=== PATIENT | male | born 1945 | race Caucasian/White ===

== ENCOUNTER 2016-09-01 15:16 | Inpatient (IN) | payer OTHER ==
[2016-09-01 17:15] LABS: BASOPHIL 0.8 % (0-2.0); EOSINOPHIL 1.1 % (0-4.5); MCH 30.6 pg (25.7-33.7); MCHC 34.8 g/dl (32.0-35.9); MEAN CELL VOLUME 87.9 fl (80-96); MEAN PLT VOLUME 8.7 fl (7.5-11.1); NEUTROPHILS 71.2 % (42.8-82.8); PLATELET COUNT 212 K/MM3 (134-434); RDW 15.1 % (11.9-15.9); WHITE BLOOD COUNT 9.4 K/mm3 (4.0-10.0)
--- NOTE | 2016-09-01 17:21 | PDOC ---
History of Present Illness - General History Source: Patient, Old Records Exam Limitations: No Limitations <Ирина Talbert - Last Filed: 09/01/16 18:21> - General History Source: Patient Exam Limitations: No Limitations - History of Present Illness Initial Comments: 09/01/16 17:21 The patient is a 71 year old male, with a significant past medical history of hemorrhoids (10 years ago treated with surgery) ,[place] (baby aspirin), CAD s/p stents x2, HTN and bipolar disorder, who presents to the emergency department with diarrhea and rectal bleeding. The patient reports today having 25-30 episodes of diarrhea with bright red blood since this morning. He notes having some mild abdominal pain. He denies any recent fevers, chills, headache or dizziness. He denies any recent nausea, vomit, or constipation. He denies any recent dysuria, frequency, urgency or hematuria. Allergies: NKA Past surgical history: See HPI. Appendectomy. Social History: Current smoker (1pack a day). EtOH occasional use. Denies drug use. PCP: <Renato aFrooq - Last Filed: 09/01/16 18:25> - General Chief Complaint: Bleeding from Anus Stated Complaint: DIARRHEA/ RECTAL BLEEDING Time Seen by Provider: 09/01/16 15:18 Past History - Past Medical History Cardiac Disorders: Yes (cad) HTN: Yes Hypercholesterolemia: Yes Psychiatric Problems: Yes (bipolar) Suicide Attempt (Hx): No - Surgical History Appendectomy: Yes Cardiac Surgery: Yes (x2 stents) - Psycho/Social/Smoking Cessation Hx Anxiety: No Suicidal Ideation: No Smoking History: Current every day smoker Have you smoked in the past 12 months: Yes Number of Cigarettes Smoked Daily: 20 Information on smoking cessation initiated: Yes 'Breaking Loose' booklet given: 09/01/16 Hx Alcohol Use: No Drug/Substance Use Hx: No Substance Use Type: None <Ирина Talbert - Last Filed: 09/01/16 18:21> <Renato Farooq - Last Filed: 09/01/16 18:25> - Past Medical History Allergies/Adverse Reactions: Allergies Allergy/AdvReac Type Severity Reaction Status Date / Time No Known Allergies Allergy Verified 09/01/16 15:17 Home Medications: Ambulatory Orders Quinapril HCl [Accupril -] 40 mg PO DAILY 08/17/13 Risperidone [Risperdal] 50 mg IM UTDICT 08/17/13 Verapamil HCl [Verapamil ER] 240 mg PO DAILY #7 [email or web address].pel 08/17/13 Amlodipine Besylate [Norvasc -] 5 mg PO DAILY 10/30/14 Metoprolol Succinate [Toprol Xl -] 25 mg PO DAILY 10/30/14 Review of Systems - Review of Systems Able to Perform ROS?: Yes Comments:: 09/01/16 17:22 CONSTITUTIONAL: Absent: fever, no chills, no fatigue EYES: Absent: visual changes ENT: Absent: ear pain, no sore throat CARDIOVASCULAR: Absent: chest pain, no palpitations RESPIRATORY: Absent: cough, no SOB GI: +diarrhea and rectal bleeding, abdominal pain,. Absent: no nausea, no vomiting , no constipation GENITOURINARY: Absent: dysuria, no frequency, no hematuria MUSKULOSKELETAL: Absent: back pain, no arthralgia, no myalgia SKIN: Absent: rash NEURO: Absent: headache <Renato Farooq - Last Filed: 09/01/16 18:25> *Physical Exam - Vital Signs Last Vital Signs Temp Pulse Resp BP Pulse Ox 98.0 F 72 18 147/75 98 09/01/16 15:19 09/01/16 15:19 09/01/16 15:19 09/01/16 15:19 09/01/16 15:30 <Ирина Talbert - Last Filed: 09/01/16 18:21> - Vital Signs Last Vital Signs Temp Pulse Resp BP Pulse Ox 98.0 F 72 18 147/75 98 09/01/16 15:19 09/01/16 15:19 09/01/16 15:19 09/01/16 15:19 09/01/16 15:30 - Physical Exam Comments: 09/01/16 17:22 GENERAL: Well developed, well nourished. Awake and alert. No acute distress. HEENT: Normocephalic, atraumatic. PERRLA, EOMI. No conjunctival pallor. Sclera are non- icteric. Moist mucous membranes. Oropharynx is clear. NECK: Supple. Full ROM. No JVD. Carotid pulses 2+ and symmetric, without bruits. No thyromegaly. No lymphadenopathy. CARDIOVASCULAR: Regular rate and rhythm. No murmurs, rubs, or gallops. Distal pulses are 2+ and symmetric. PULMONARY: Wheezes in all lung rhodes. ABDOMINAL: Soft. Non-tender. Non-distended. No rebound or guarding. No organomegaly. Normoactive bowel sounds. RECTAL: External hemorrhoids and gross red blood. MUSCULOSKELETAL Normal range of motion at all joints. No bony deformities or tenderness. No CVA tenderness. EXTREMITIES: No cyanosis. No clubbing. No edema. No calf tenderness. SKIN: Warm and dry. Normal capillary refill. No rashes. No jaundice. NEUROLOGICAL: Alert, awake, appropriate. Cranial nerves 2-12 intact. No deficits to light touch and temperature in face, upper extremities and lower extremities. No motor deficits in the in face, upper extremities and lower extremities. Normoreflexic in the upper and lower extremities. Normal speech. Toes are down- going bilaterally. Gait is normal without ataxia. PSYCHIATRIC: Cooperative. Good eye contact. Appropriate mood and affect. <Renato Farooq - Last Filed: 09/01/16 18:25> ED Treatment Course - LABORATORY CBC & Chemistry Diagram: 09/01/16 15:50 09/01/16 15:50 <Ирина Talbert - Last Filed: 09/01/16 18:21> - LABORATORY CBC & Chemistry Diagram: 09/01/16 15:50 09/01/16 15:50 <Renato Farooq - Last Filed: 09/01/16 18:25> Medical Decision Making - Medical Decision Making 09/01/16 17:19 71-year-old male with history of hypertension, hemorrhoids, COPD, coronary artery disease status post stent on aspirin therapy who presents to the emergency department with bright red blood per rectum 20-30 episodes this morning. There is copious BRBPR on my physical exam. Differential diagnosis includes but is not limited to: Rectal bleed secondary to hemorrhoids, diverticulitis, AV malformation, rapid upper GI bleed, anemia, dehydration, toxic/metabolic derangement. Plan: 1. Labs 2. Type and cross for 4 units 3. IV fluids 4. EKG 5. GI consult 6. Admit 7. Observe and reevaluate 09/01/16 18:21 Addendum: The labs were reviewed and are noted in the EMR. His hemoglobin is 14 therefore will not actively transfuse. Will admit to a monitored setting and have GI see the patient. I've discussed the case with the patient's primary care physician who agrees with the plan. <Ирина Talbert - Last Filed: 09/01/16 18:21> - Medical Decision Making 09/01/16 17:57 Call made to , awaiting call back. 09/01/16 18:18 Call back from , case discussed. 09/01/16 18:23 Call made to , awaiting call back 09/01/16 18:25 Call back from case discussed. <Renato Farooq - Last Filed: 09/01/16 18:25> *DC/Admit/Observation/Transfer - Discharge Dispostion Admit: Yes - Attestations Physician Attestion: 09/01/16 17:19 I, Dr. Ирина Talbert, attest that the scribes documentation that appears above has been prepared under my direction and personally reviewed by me in its entirety. I confirmed that the note above accurately reflects all work, treatment, procedures, and medical decision-making performed by me. <Ирина Talbert - Last Filed: 09/01/16 18:21> - Attestations Scribe Attestion: 09/01/16 17:22 Documentation prepared by Renato Farooq, acting as medical affairs director for Ирина Talbert MD. <Renato Farooq - Last Filed: 09/01/16 18:25> Diagnosis at time of Disposition: Rectal bleeding - Discharge Dispostion Condition at time of disposition: Good - Referrals Referrals: Antwon Scales MD [Primary Care Provider] -
[2016-09-01] MEDS ORDERED: SODIUM CHLORIDE 1,000 ML IV STA (17:22)
[2016-09-01] MEDS ORDERED: PANTOPRAZOLE SODIUM 40 MG VIAL ONE (17:27)
[2016-09-01 17:30] LABS: INR 0.96 (0.82-1.09); PROTHROMBIN TIME (PATIENT) 10.6 SEC (9.98-11.88)
[2016-09-01 17:34] LABS: ALBUMIN 3.9 g/dl (3.4-5.0); ANION GAP 7 (8-16); BILIRUBIN,TOTAL 0.4 mg/dL (0.2-1.0); CALCIUM 8.6 mg/dL (8.5-10.1); CO2 28 mmol/L (21-32); CREATININE 1.1 mg/dL (0.7-1.3); GLUCOSE,RANDOM 82 mg/dL (74-106); SGOT/AST 21 U/L (15-37); SGPT/ALT 25 U/L (12-78)
[2016-09-01 17:35] LABS: ALK PHOS 59 U/L (45-117); TOT PROT 6.7 g/dl (6.4-8.2)
[2016-09-01] MEDS: PANTOPRAZOLE SODIUM 80 MG in SODIUM CHLORIDE 100 ML IVPB SCH (17:36)
[2016-09-01 19:57] LABS: TROPONIN I 0.07 ng/ml (0.00-0.05)
[2016-09-01 20:39] LABS: BASOPHIL 0.6 % (0-2.0); MCH 29.8 pg (25.7-33.7); MCHC 33.9 g/dl (32.0-35.9); MEAN CELL VOLUME 87.9 fl (80-96); MEAN PLT VOLUME 8.4 fl (7.5-11.1); PLATELET COUNT 188 K/MM3 (134-434); RDW 15.6 % (11.9-15.9); WHITE BLOOD COUNT 8.7 K/mm3 (4.0-10.0)
[2016-09-01] MEDS: D5-1/2NS+20 MEQ KCL - 1,000 ML IV SCH (21:56)
[2016-09-01] MEDS: BUDESONIDE/FORMETEROL FUMARATE 80/4.5 mcg INHALER IH SCH (22:51)
[2016-09-01] MEDS ORDERED: PT OWN MED DRAWER 7, Y5N ONE (23:16)
[2016-09-01 23:48] VITALS: BMI 20.7
[2016-09-02] MEDS: PANTOPRAZOLE SODIUM 80 MG in SODIUM CHLORIDE 100 ML IVPB SCH ×3 (02:47→23:50)
[2016-09-02 08:02] LABS: BASOPHIL 0.5 % (0-2.0); EOSINOPHIL 1.5 % (0-4.5); MEAN CELL VOLUME 88.2 fl (80-96); MEAN PLT VOLUME 8.7 fl (7.5-11.1); NEUTROPHILS 71.6 % (42.8-82.8); PLATELET COUNT 179 K/MM3 (134-434); RDW 15.5 % (11.9-15.9); WHITE BLOOD COUNT 6.1 K/mm3 (4.0-10.0)
--- NOTE | 2016-09-02 08:08 | HP ---
Admitting History and Physical - Admission History of Present Illness: 71 year old male, with a significant past medical history of hemorrhoids (10 years ago treated with surgery) ,[place] (baby aspirin), CAD s/p stents x2, HTN and bipolar disorder, who presents to the emergency department with diarrhea and rectal bleeding. The patient reports today having 25-30 episodes of diarrhea with bright red blood since this morning. He notes having some mild abdominal pain. He denies any recent fevers, chills, headache or dizziness. He denies any recent nausea, vomit, or constipation. He denies any recent dysuria, frequency, urgency or hematuria. Allergies: NKA Past surgical history: See HPI. Appendectomy. Social History: Current smoker (1pack a day). EtOH occasional use. Denies drug use. 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 Cardiovascular: Yes: CAD, HTN, Hyperlipdemia Pulmonary: Yes: COPD Gastrointestinal: Yes: GERD, Hemorrhoids Psych: Yes: Bipolar - Smoking History Smoking history: Current every day smoker Have you smoked in the past 12 months: Yes Aproximately how many cigarettes per day: 20 - Alcohol/Substance Use Hx Alcohol Use: No Home Medications - Allergies Allergies/Adverse Reactions: Allergies Allergy/AdvReac Type Severity Reaction Status Date / Time No Known Allergies Allergy Verified 09/01/16 15:17 - Home Medications Home Medications: Ambulatory Orders Quinapril HCl [Accupril -] 40 mg PO DAILY 08/17/13 Risperidone [Risperdal] 50 mg IM UTDICT 08/17/13 Amlodipine Besylate [Norvasc -] 5 mg PO DAILY 10/30/14 Aspirin [ASA -] 81 mg PO DAILY 09/01/16 Cholecalciferol (Vitamin D3) [Vitamin D -] 1,000 unit PO DAILY 09/01/16 Propylene Glycol/Peg 400/Pf [Systane 0.3-0.4% Eye Drops] 1 each OP DAILY Salmeterol/Fluticasone [Advair 250Mcg/50Mcg -] 1 inh PO DAILY 09/01/16 Simvastatin [Zocor -] 20 mg PO HS 09/01/16 Travoprost [Travatan Z] 1 drop OP DAILY 09/01/16 Acetaminophen [Tylenol .Extra-Strength -] 1,000 mg PO Q6H PRN 09/02/16 Amlodipine Besylate [Norvasc -] 10 mg PO DAILY #30 tablet 09/04/16 Nicotine Patch [Nicoderm Patch -] 21 mg TD DAILY patch 09/04/16 Pantoprazole Sodium [Protonix -] 40 mg PO DAILY #30 tablet.ec 09/04/16 Review of Systems - Review of Systems HENT: reports: No Symptoms Cardiovascular: denies: Chest Pain, Edema Respiratory: denies: SOB Gastrointestinal: reports: Rectal Bleeding. denies: Abdominal Pain Genitourinary: reports: No Symptoms Physical Examination Vital Signs: Vital Signs Temperature 97.0 F L 09/02/16 05:00 Pulse Rate 60 09/02/16 05:00 Respiratory Rate 16 09/02/16 05:00 Blood Pressure 147/80 09/02/16 05:00 O2 Sat by Pulse Oximetry (%) 92 L 09/01/16 21:15 Cardiovascular: Yes: Regular Rate and Rhythm Respiratory: Yes: Regular, CTA Bilaterally Gastrointestinal: Yes: Normal Bowel Sounds, Soft. No: Tenderness Edema: No Problem List - Problems (1) Rectal bleeding Assessment/Plan: FOLLOW LABS GI CONSULT PPI Code(s): K62.5 - HEMORRHAGE OF ANUS AND RECTUM (2) Hypertension Assessment/Plan: MONITOR ON CURRENT MEDS Code(s): I10 - ESSENTIAL (PRIMARY) HYPERTENSION (3) CAD (coronary artery disease) Assessment/Plan: NO CP EKG CARDIO Code(s): I25.10 - ATHSCL HEART DISEASE OF [place] CORONARY ARTERY W/O ANG PCTRS (4) Tobacco abuse Assessment/Plan: NICODERM Code(s): Z72.0 - TOBACCO USE (5) Elevated troponin Assessment/Plan: FOLLOW CARDIO Code(s): R79.89 - OTHER SPECIFIED ABNORMAL FINDINGS OF BLOOD CHEMISTRY
[2016-09-02 08:27] LABS: ALBUMIN 3.3 g/dl (3.4-5.0); ALK PHOS 53 U/L (45-117); ANION GAP 7 (8-16); BILIRUBIN,TOTAL 0.6 mg/dL (0.2-1.0); CALCIUM 7.7 mg/dL (8.5-10.1); CHOLESTEROL 162 mg/dL (50-200); CO2 27 mmol/L (21-32); GLUCOSE,RANDOM 104 mg/dL (74-106); LDL CHOLESTEROL (ONLY SJRH) 101 mg/dL (5-100); SGOT/AST 16 U/L (15-37); SGPT/ALT 20 U/L (12-78); TOT PROT 5.6 g/dl (6.4-8.2); TROPONIN I 0.06 ng/ml (0.00-0.05)
[2016-09-02] MEDS ORDERED: INFLUENZA VACCINE 45 MCG/0.5 ML (MDV 16-17) IM ONE (09:00)
[2016-09-02] MEDS ORDERED: QUINAPRIL HCL 20 MG TABLET (FP) ONE (09:54)
[2016-09-02] MEDS ORDERED: PT OWN MED DRAWER 7, Y5N ONE ×4 (09:55→22:29)
[2016-09-02] MEDS ORDERED: amLODIPine BESYLATE 5 MG TABLET (FP) PO SCH (10:00)
[2016-09-02] MEDS: NICOTINE 21 MG/24 HOURS TOPICAL PATCH TD SCH (10:21)
[2016-09-02] MEDS: QUINAPRIL HCL 40 MG TABLET (FP) PO SCH (10:22)
[2016-09-02] MEDS: BUDESONIDE/FORMETEROL FUMARATE 80/4.5 mcg INHALER IH SCH ×2 (10:24→21:21)
[2016-09-02] MEDS: D5-1/2NS+20 MEQ KCL - 1,000 ML IV SCH ×3 (13:05→23:50)
--- NOTE | 2016-09-02 14:22 | CON.CARD ---
Consult Consult Specialty:: Cardiology Referred by:: Dr. Scales Reason for Consultation:: Hypertension, minimal troponin elevation - History of Present Illness Chief Complaint: Rectal bleeding History of Present Illness: 71 yo male with COPD, HTN, hyperlipidemia, CAD s/p PCI prox and mid LAD requiring rotational atherectomy (NSTEMI, 10/2014 at [facility]), ascending aortic aneurysm (4.[address] scan 10/2014), who was admitted for diarrhea and rectal bleeding. Patient reported hematochezia which began yesterday morning. Cardiology was consulted for management of HTN and minimal troponin elevation ( 0.07 -> 0.06). Patient denies any chest pain or dyspnea. Patient was last seen by Dr. Yovany Sesay (store consultant) on 06/10/16 and was clinically stable from cardiac standpoint at that time. No ischemic ECG changes per admission ECG. Currently asymptomatic. 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 Cardio/Vascular: Yes: CAD, HTN, Hyperlipdemia, [place] (NSTEMI 10/2013, underwent PCI of prox and mid LAD with JAMAL x2 at [facility]) Pulmonary: Yes: COPD Gastrointestinal: Yes: GERD, Hemorrhoids Psych: Yes: Bipolar - Past Surgical History Past Surgical History: Yes: Appendectomy - Alcohol/Substance Use Hx Alcohol Use: No - Smoking History Smoking history: Current every day smoker Have you smoked in the past 12 months: Yes Aproximately how many cigarettes per day: 20 Home Medications - Allergies Allergies/Adverse Reactions: Allergies Allergy/AdvReac Type Severity Reaction Status Date / Time No Known Allergies Allergy Verified 09/01/16 15:17 - Home Medications Home Medications: Ambulatory Orders Quinapril HCl [Accupril -] 40 mg PO DAILY 08/17/13 Risperidone [Risperdal] 50 mg IM UTDICT 08/17/13 Amlodipine Besylate [Norvasc -] 5 mg PO DAILY 10/30/14 Aspirin [ASA -] 81 mg PO DAILY 09/01/16 Cholecalciferol (Vitamin D3) [Vitamin D3 -] 1,000 unit PO DAILY 09/01/16 Propylene Glycol/Peg 400/Pf [Systane 0.3-0.4% Eye Drops] 1 each OP DAILY Salmeterol/Fluticasone [Advair 250Mcg/50Mcg] 1 inh PO DAILY 09/01/16 Simvastatin [Zocor -] 20 mg PO HS 09/01/16 Travoprost [Travatan Z] 1 drop OP DAILY 09/01/16 Acetaminophen [Tylenol -] 1,000 mg PO Q6H PRN 09/02/16 Vital Signs: Vital Signs Temperature 98.0 F 09/02/16 14:01 Pulse Rate 61 09/02/16 14:01 Respiratory Rate 18 09/02/16 14:01 Blood Pressure 136/82 09/02/16 14:01 O2 Sat by Pulse Oximetry (%) 94 L 09/02/16 09:00 Constitutional: Yes: No Distress Eyes: Yes: Conjunctiva Clear, EOM Intact HENT: Yes: Atraumatic, Normocephalic Respiratory: Yes: CTA Bilaterally Gastrointestinal: Yes: Normal Bowel Sounds. No: Soft, Tenderness Cardiovascular: Yes: Regular Rate and Rhythm JVD: No Carotid Bruit: No PMI: Non-Displaced Heart Sounds: Yes: S1, S2 Murmur: No: Systolic Murmur Edema: No Neurological: Yes: Alert, Oriented, Cran Nerves II-XII Intact ...Motor Strength: WNL Psychiatric: Yes: WNL - Other Data Labs, Other Data: CBC, BMP 09/02/16 06:00 09/02/16 06:00 INR, PTT INR 0.96 (0.82-1.09) 09/01/16 15:50 Troponin, BNP 09/02/16 06:00 Troponin I 0.06 H Troponin, BNP 09/02/16 06:00 Troponin I 0.06 H 09/01/16 ECG: Sinus rhythm, rate 76 bpm, PACs, delayed R wave progression Echo: Report Reviewed (10/31/14 Echo: Normal LV size and systolic function, grade I diastolic dysfunction, borderline biatrial dilatation, mild to mod MV thickening, trace to mild MR, mod aortic root dilatation.) Prior Cardiac Procedures: Cardiac Catheterization (10/2014 Cardiac cath (at [facility]): Subtotal occlusion of mLAD, underwent PCI w/ JAMAL x 2 to proximal and mid LAD, residual 70-80% dLPL diseae) Imaging - Results Chest X-ray: Report Reviewed (09/01/16 CXR: Borderline cardiomegaly) Assessment/Plan 71 yo male with COPD, HTN, hyperlipidemia, CAD s/p PCI prox and mid LAD requiring rotational atherectomy (NSTEMI, 10/2014 at [facility]), ascending aortic aneurysm (4.[address] scan 10/2014), who was admitted for diarrhea and rectal bleeding which began yesterday AM. Cardiology was consulted for management of HTN and minimal troponin elevation ( 0.07 -> 0.06). P No ECG changes or chest pain to suggest ischemia or infarct. Minimal trop elevation is not clinically significant given absence of symptoms and ECG changes. RECS: Will increase amlodipine to 10 mg po daily for further BP control. Continue quinapril 40 mg po daily. Will change patient's statin to pravastatin 40 mg po daily as per 06/10/[address] Sesay Patient's aspirin is currently on hold given reported rectal bleeding. May resume when OK per GI consult service. Patient does not have any cardiac contraindications to GI endoscopy if clinically indicated, and may proceed without further cardiac work-up or intervention. Will see prn. Please call with specific questions. Further recs as per primary care team and GI consult
--- NOTE | 2016-09-02 16:09 | EKG ---
Test Reason : Blood Pressure : / mmHG Vent. Rate : 076 BPM Atrial Rate : 076 BPM P-R Int : 152 ms QRS Dur : 082 ms QT Int : 372 ms P-R-T Axes : 054 010 045 degrees QTc Int : 418 ms SINUS RHYTHM WITH PREMATURE ATRIAL COMPLEXES CANNOT RULE OUT ANTERIOR INFARCT , AGE UNDETERMINED ABNORMAL ECG WHEN COMPARED WITH ECG OF 31-OCT-2014 09:08, ST NO LONGER DEPRESSED IN LATERAL LEADS NONSPECIFIC T WAVE ABNORMALITY NO LONGER EVIDENT IN INFERIOR LEADS T WAVE INVERSION NO LONGER EVIDENT IN LATERAL LEADS Confirmed by LEO STERLING MD ([id number]) on 09/02/2016 4:09:07 PM Referred By: Confirmed By:LEO STERLING MD
--- NOTE | 2016-09-02 16:55 | CON.GI ---
Consult Consult Specialty:: gastroenterology Referred by:: Dr Scales - History of Present Illness History of Present Illness: 71 y/o male was asked too be seen because of diarrhea associated with rectal bleeding and mild anemia. He had several episodes of rectal bleeding and diarrhea. He denies chest pain, LOC,dizziness, and abdominal pain. 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 Cardio/Vascular: Yes: CAD, HTN, Hyperlipdemia, [place] (NSTEMI 10/2013, underwent PCI of prox and mid LAD with JAMAL x2 at [facility]) Pulmonary: Yes: COPD Gastrointestinal: Yes: GERD, Hemorrhoids Psych: Yes: Bipolar - Past Surgical History Past Surgical History: Yes: Appendectomy - Alcohol/Substance Use Hx Alcohol Use: No - Smoking History Smoking history: Current every day smoker Have you smoked in the past 12 months: Yes Aproximately how many cigarettes per day: 20 Home Medications - Allergies Allergies/Adverse Reactions: Allergies Allergy/AdvReac Type Severity Reaction Status Date / Time No Known Allergies Allergy Verified 09/01/16 15:17 - Home Medications Home Medications: Ambulatory Orders Quinapril HCl [Accupril -] 40 mg PO DAILY 08/17/13 Risperidone [Risperdal] 50 mg IM UTDICT 08/17/13 Amlodipine Besylate [Norvasc -] 5 mg PO DAILY 10/30/14 Aspirin [ASA -] 81 mg PO DAILY 09/01/16 Cholecalciferol (Vitamin D3) [Vitamin D3 -] 1,000 unit PO DAILY 09/01/16 Propylene Glycol/Peg 400/Pf [Systane 0.3-0.4% Eye Drops] 1 each OP DAILY Salmeterol/Fluticasone [Advair 250Mcg/50Mcg] 1 inh PO DAILY 09/01/16 Simvastatin [Zocor -] 20 mg PO HS 09/01/16 Travoprost [Travatan Z] 1 drop OP DAILY 09/01/16 Acetaminophen [Tylenol -] 1,000 mg PO Q6H PRN 09/02/16 Review of Systems - Review of Systems Constitutional: denies: Fever Eyes: denies: Blind Spots HENT: denies: Difficult Swallowing, Throat Pain Cardiovascular: denies: Chest Pain Respiratory: denies: SOB Gastrointestinal: reports: Diarrhea, Rectal Bleeding. denies: Abdominal Pain, Constipation, Melena, Nausea Physical Exam-GI Vital Signs: Vital Signs Temperature 98.0 F 09/02/16 14:01 Pulse Rate 61 09/02/16 14:01 Respiratory Rate 18 09/02/16 14:01 Blood Pressure 136/82 09/02/16 14:01 O2 Sat by Pulse Oximetry (%) 94 L 09/02/16 09:00 Labs: CBC, BMP 09/02/16 06:00 09/02/16 06:00 INR, PTT INR 0.96 (0.82-1.09) 09/01/16 15:50 Problem List - Problems (1) Rectal bleeding Assessment/Plan: associated with diarrhea, no abdominal pain r/o diverticular bleeding ves ischemic colitis R> for colonoscopy and EGD tomorrow Code(s): K62.5 - HEMORRHAGE OF ANUS AND RECTUM
[2016-09-02 17:36] LABS: MCHC 33.9 g/dl (32.0-35.9); MEAN CELL VOLUME 88.5 fl (80-96); MEAN PLT VOLUME 8.7 fl (7.5-11.1); PLATELET COUNT 201 K/MM3 (134-434); RDW 15.2 % (11.9-15.9); WHITE BLOOD COUNT 7.4 K/mm3 (4.0-10.0)
[2016-09-02] MEDS ORDERED: SODIUM PHOSPHATE/NA BIPHOS 133 ML ENEMA PR ONE (18:30)
[2016-09-02] MEDS: ATORVASTATIN CA 10 MG TABLET (FP) PO SCH (21:20)
[2016-09-02] MEDS ORDERED: MAGNESIUM CITRATE 300 ML BOTTLE PO ONE (22:00)
[2016-09-02] MEDS: ARTIFICIAL TEARS (POLYVINYL ALCOHOL 1.4%) OPTH DROPS OU SCH (22:06)
[2016-09-02] MEDS: LATANOPROST 0.005% OPHTH SOLN 2.5ML BOTTLE OU SCH (22:06)
[2016-09-03] MEDS: MAGNESIUM CITRATE 300 ML BOTTLE PO SCH ×2 (00:34→01:37)
[2016-09-03 06:10] LABS: SERUM IRON 140 ug/dL (38-169); TOTAL IRON BINDING CAPACITY 232 ug/dL (250-450); UIBC 92 ug/dL (111-343)
[2016-09-03] MEDS ORDERED: LIDOCAINE HCL/PF 1% SDV 5ML VIAL ONE (07:40)
[2016-09-03] MEDS ORDERED: PROPOFOL 20 ML ONE ×3 (07:41)
--- NOTE | 2016-09-03 08:40 | PN ---
Progress Note (short form) - Note Progress Note: ADDENDUM: S/P EGD AND COLON EGD NEGATIVE COLON WITH POLYP (EXCISED) AND SEVERE SIGMOID DIVERTICULOSIS NO BLEEDING A/P BLEED SECONDARY TO [id number]. NO ACTIVE BLEED. RESUME DIET FOLLOW PATH
[2016-09-03] MEDS ORDERED: QUINAPRIL HCL 20 MG TABLET (FP) ONE (09:28)
[2016-09-03] MEDS ORDERED: PT OWN MED DRAWER 7, Y5N ONE ×4 (09:29→21:16)
[2016-09-03] MEDS ORDERED: RESTASIS OU SCH (10:00)
[2016-09-03] MEDS ORDERED: [UNRECOGNIZED DRUG - REMARK] OU SCH (10:00)
[2016-09-03] MEDS: QUINAPRIL HCL 40 MG TABLET (FP) PO SCH (10:07)
[2016-09-03] MEDS: amLODIPine BESYLATE 10 MG TABLET (FP) PO SCH (10:07)
[2016-09-03] MEDS: NICOTINE 21 MG/24 HOURS TOPICAL PATCH TD SCH (10:07)
[2016-09-03] MEDS: BUDESONIDE/FORMETEROL FUMARATE 80/4.5 mcg INHALER IH SCH ×2 (10:08→21:07)
[2016-09-03] MEDS: ARTIFICIAL TEARS (POLYVINYL ALCOHOL 1.4%) OPTH DROPS OU SCH (10:09)
[2016-09-03] MEDS: PANTOPRAZOLE SODIUM 80 MG in SODIUM CHLORIDE 100 ML IVPB SCH ×2 (10:36→21:07)
[2016-09-03] MEDS: D5-1/2NS+20 MEQ KCL - 1,000 ML IV SCH ×2 (15:30→21:06)
--- NOTE | 2016-09-03 20:28 | PN ---
Progress Note, Physician - Current Medication List Current Medications: Active Medications Amlodipine Besylate (Norvasc -) 10 mg PO DAILY [facility] Last Admin: 09/03/16 10:07 Dose: 10 mg Artificial Tears (Artificial Tears) 1 drop OU DAILY [facility] Last Admin: 09/03/16 10:09 Dose: 1 drop Atorvastatin Calcium (Lipitor -) 10 mg PO HS [facility] Last Admin: 09/02/16 21:20 Dose: Not Given Budesonide/Formoterol Fumarate (Symbicort 80/4.5mcg -) 2 puff IH BID [facility] Last Admin: 09/03/16 10:08 Dose: 2 puff Pantoprazole Sodium 80 mg/ (Sodium Chloride) 100 mls @ 10 mls/hr IVPB Q10H [facility] PRN Reason: 8 MG/HR Last Admin: 09/03/16 10:36 Dose: 10 mls/hr Potassium Chloride/Dextrose/Sod Cl (D5-1/2ns+20 Meq Kcl -) 1,000 mls @ 75 mls/ hr IV ASDIR [facility] Last Admin: 09/03/16 15:30 Dose: 75 mls/hr Latanoprost (Xalatan 0.005% Eye Drops -) 1 drop OU HS [facility] Last Admin: 09/02/16 22:06 Dose: 1 drop Nicotine (Nicoderm Patch -) 21 mg TD DAILY [facility] Last Admin: 09/03/16 10:07 Dose: 21 mg Non-Formulary Med ( (Restasis)) 1 each OU DAILY [facility] Quinapril HCl (Accupril -) 40 mg PO DAILY [facility] Last Admin: 09/03/16 10:07 Dose: 40 mg - Objective Vital Signs: Vital Signs Temperature 98.4 F 09/03/16 18:00 Pulse Rate 60 09/03/16 18:00 Respiratory Rate 18 09/03/16 18:00 Blood Pressure 115/65 09/03/16 18:00 O2 Sat by Pulse Oximetry (%) 100 09/03/16 09:20 Labs: CBC, BMP 09/02/16 16:40 09/02/16 06:00 INR, PTT INR 0.96 (0.82-1.09) 09/01/16 15:50 Problem List - Problems (1) Rectal bleeding Code(s): K62.5 - HEMORRHAGE OF ANUS AND RECTUM (2) Hypertension Code(s): I10 - ESSENTIAL (PRIMARY) HYPERTENSION (3) CAD (coronary artery disease) Code(s): I25.10 - ATHSCL HEART DISEASE OF [place] CORONARY ARTERY W/O ANG PCTRS (4) Tobacco abuse Code(s): Z72.0 - TOBACCO USE (5) Elevated troponin Code(s): R79.89 - OTHER SPECIFIED ABNORMAL FINDINGS OF BLOOD CHEMISTRY Assessment/Plan Problems (1) Rectal bleeding Assessment/Plan: FOLLOW LABS GI CONSULT NOTED--S/P ENDOSCOPY PPI Code(s): K62.5 - HEMORRHAGE OF ANUS AND RECTUM (2) Hypertension Assessment/Plan: MONITOR ON CURRENT MEDS Code(s): I10 - ESSENTIAL (PRIMARY) HYPERTENSION (3) CAD (coronary artery disease) Assessment/Plan: NO CP EKG CARDIO Code(s): I25.10 - ATHSCL HEART DISEASE OF [place] CORONARY ARTERY W/O ANG PCTRS (4) Tobacco abuse Assessment/Plan: NICODERM Code(s): Z72.0 - TOBACCO USE (5) Elevated troponin Assessment/Plan: FOLLOW CARDIO Code(s): R79.89 - OTHER SPECIFIED ABNORMAL FINDINGS OF BLOOD CHEMISTRY
[2016-09-03] MEDS: ATORVASTATIN CA 10 MG TABLET (FP) PO SCH (21:06)
[2016-09-03] MEDS: LATANOPROST 0.005% OPHTH SOLN 2.5ML BOTTLE OU SCH (21:07)
[2016-09-04] MEDS: PANTOPRAZOLE SODIUM 80 MG in SODIUM CHLORIDE 100 ML IVPB SCH (05:30)
--- NOTE | 2016-09-04 07:49 | DS ---
Physical Examination Vital Signs: Vital Signs Temperature 98.0 F 09/04/16 06:00 Pulse Rate 58 L 09/04/16 06:00 Respiratory Rate 18 09/04/16 06:00 Blood Pressure 143/83 09/04/16 06:00 O2 Sat by Pulse Oximetry (%) 100 09/03/16 21:00 Findings/Remarks: FEELS BETTER NO BLEEDING Cardiovascular: Yes: Regular Rate and Rhythm Respiratory: Yes: Regular, CTA Bilaterally Gastrointestinal: Yes: Normal Bowel Sounds, Soft. No: Tenderness Labs: CBC, BMP 09/02/16 16:40 09/02/16 06:00 Discharge Summary Reason For Visit: RECTAL HEMORRHAGE Current Active Problems CAD (coronary artery disease) (Acute) Elevated troponin (Acute) Rectal bleeding (Acute) Tobacco abuse (Acute) Hospital Course: 71 year old male, with a significant past medical history of hemorrhoids (10 years ago treated with surgery) ,[place] (baby aspirin), CAD s/p stents x2, HTN and bipolar disorder, who presents to the emergency department with diarrhea and rectal bleeding. The patient reports today having 25-30 episodes of diarrhea with bright red blood since this morning. He notes having some mild abdominal pain. He denies any recent fevers, chills, headache or dizziness. He denies any recent nausea, vomit, or constipation. He denies any recent dysuria, frequency, urgency or hematuria. Allergies: NKA Past surgical history: See HPI. Appendectomy. Social History: Current smoker (1pack a day). EtOH occasional use. Denies drug use. 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 NO ACTIVE BLEED. RESUME DIET FOLLOW PATH PPI Code(s): K62.5 - HEMORRHAGE OF ANUS AND RECTUM (2) Hypertension Assessment/Plan: MONITOR ON CURRENT MEDS Code(s): I10 - ESSENTIAL (PRIMARY) HYPERTENSION (3) CAD (coronary artery disease) Assessment/Plan: NO CP EKG CARDIO Code(s): I25.10 - ATHSCL HEART DISEASE OF [place] CORONARY ARTERY W/O ANG PCTRS (4) Tobacco abuse Assessment/Plan: NICODERM Code(s): Z72.0 - TOBACCO USE (5) Elevated troponin Assessment/Plan: FOLLOW CARDIO Code(s): R79.89 - OTHER SPECIFIED ABNORMAL FINDINGS OF BLOOD CHEMISTRY Condition: Improved - Instructions Referrals: Antwon Scales MD [Primary Care Provider] - 1 Week Disposition: HOME - Home Medications Comprehensive Discharge Medication List: Ambulatory Orders Quinapril HCl [Accupril -] 40 mg PO DAILY 08/17/13 Risperidone [Risperdal] 50 mg IM UTDICT 08/17/13 Amlodipine Besylate [Norvasc -] 5 mg PO DAILY 10/30/14 Aspirin [ASA -] 81 mg PO DAILY 09/01/16 Cholecalciferol (Vitamin D3) [Vitamin D -] 1,000 unit PO DAILY 09/01/16 Propylene Glycol/Peg 400/Pf [Systane 0.3-0.4% Eye Drops] 1 each OP DAILY Salmeterol/Fluticasone [Advair 250Mcg/50Mcg -] 1 inh PO DAILY 09/01/16 Simvastatin [Zocor -] 20 mg PO HS 09/01/16 Travoprost [Travatan Z] 1 drop OP DAILY 09/01/16 Acetaminophen [Tylenol .Extra-Strength -] 1,000 mg PO Q6H PRN 09/02/16 Amlodipine Besylate [Norvasc -] 10 mg PO DAILY #30 tablet 09/04/16 Nicotine Patch [Nicoderm Patch -] 21 mg TD DAILY patch 09/04/16 Pantoprazole Sodium [Protonix -] 40 mg PO DAILY #30 tablet.ec 09/04/16
[2016-09-04] MEDS ORDERED: QUINAPRIL HCL 20 MG TABLET (FP) ONE (09:28)
[2016-09-04] MEDS: amLODIPine BESYLATE 10 MG TABLET (FP) PO SCH (09:33)
[2016-09-04] MEDS: NICOTINE 21 MG/24 HOURS TOPICAL PATCH TD SCH (09:33)
[2016-09-04] MEDS: ARTIFICIAL TEARS (POLYVINYL ALCOHOL 1.4%) OPTH DROPS OU SCH (09:33)
[2016-09-04] MEDS: QUINAPRIL HCL 40 MG TABLET (FP) PO SCH (09:33)
[2016-09-04] MEDS: BUDESONIDE/FORMETEROL FUMARATE 80/4.5 mcg INHALER IH SCH (09:40)
[2016-09-04 09:57] VITALS: BP 151/90; PULSE 60; TEMP 98.2
--- NOTE | 2016-09-04 13:14 | PATH ---
Surgical Pathology Report Patient Name: LEELEE DUGAN [facility]. Rec. #: [id number] /Age/Gender: 1945 (Age: 71) / M Account: [id number] Location: 4 SO PEDS/ADOL Taken: 09/03/2016 Received: 09/03/2016 Reported: 09/04/2016 Physicians: Manfred Dimas M.D. Specimen(s) Received A: BX ANTRUM B: POLYP SIGMOID Clinical History Rectal bleeding Normal EGD, diverticulosis, hemorrhoids, sigmoid polyp Final Diagnosis A. STOMACH, ANTRUM, BIOPSY: GASTRIC ANTRAL MUCOSA WITH MODERATE CHRONIC GASTRITIS AND REACTIVE GASTROPATHY WITH FOCAL SURFACE EROSION. IMMUNOSTAIN FOR H. PYLORI IS NEGATIVE FOR ORGANISMS. B. COLON, SIGMOID, POLYP, POLYPECTOMY: TUBULAR ADENOMA. Electronically Signed John Green M.D. Gross Description A. Received in formalin, labeled "biopsy antrum" are 2 lopes, irregular portions of soft tissue measuring 0.2 and 0.3 cm in greatest dimension. The specimens are submitted in toto in one cassette. B. Received in formalin, labeled "polyp sigmoid" is a lopes, polypoid portion of soft tissue measuring 0.4 cm in greatest dimension. The specimen is submitted in toto in one cassette. 09/03/201609/03/2016
== END 2016-09-04 10:30 | disposition home or self-care (01) | DRG 379 ==
LOC: JER 15:16 → EDBD 18:52 → JERBED 18:52 → J4S 20:42
PROVIDERS: ADMIT Family Medicine; ATTEND Family Medicine
PROC: 0DB68ZX Excision of Stomach, Via Natural or Artificial Opening Endoscopic, Diagnostic (ICD-10-PCS; 2016-09-03)
PROC: 0DBN8ZZ Excision of Sigmoid Colon, Via Natural or Artificial Opening Endoscopic (ICD-10-PCS; principal; 2016-09-03 07:30)
DX: K57.91 Diverticulosis of intestine, part unspecified, without perforation or abscess with bleeding (principal); D12.5 Benign neoplasm of sigmoid colon; K29.50 Unspecified chronic gastritis without bleeding; I25.10 Atherosclerotic heart disease of native coronary artery without angina pectoris; Z98.61 Coronary angioplasty status; F17.210 Nicotine dependence, cigarettes, uncomplicated; E78.5 Hyperlipidemia, unspecified; K21.9 Gastro-esophageal reflux disease without esophagitis; I10 Essential (primary) hypertension; F31.9 Bipolar disorder, unspecified; J44.9 Chronic obstructive pulmonary disease, unspecified; I71.2 Thoracic aortic aneurysm, without rupture; R79.89 Other specified abnormal findings of blood chemistry
CPT/HCPCS: 36415; 71010-TC; 80053; 80061; 82550; 82553; 82728; 83540; 83550; 83721; 84484; 85025; 85027; 85610; 85730; 86850; 86900; 86901; 88305-TC; 93005; 93010; 99285-25; G0008; Q2037

== ENCOUNTER 2017-07-12 08:38 | Inpatient (IN) | payer OTHER ==
--- NOTE | 2017-07-12 09:11 | PDOC ---
Attending Attestation - Medical Decision Making 07/12/17 09:16 Imaging: Head CT w/o contrast Reported by: Dr. Sung Review by: Dr. Walker Impression: No intracranial hemorrhage is seen. Mild bilateral frontal subcortical white matter hypodensity is noted probably on the basis of chronic microvascular ischemic change and less likely representing acute white matter ischemia. Imaging: Chest XR Reported by: Dr. Harvey Review by: Dr. Walker Impression: No acute chest pathology. Consulted with Dr. Walker at 9:16AM, who agrees with admission for ICU. 07/12/17 10:[address] Scales. <Janae Ron - Last Filed: 07/12/17 11:13> - Resident Resident Name: William Ortiz - ED Attending Attestation I have performed the following: I have examined & evaluated the patient, The case was reviewed & discussed with the resident, I agree w/resident's findings & plan, Exceptions are as noted - HPI HPI: 07/12/17 12:14 72-year-old gentleman past medical history significant for hemorrhoids, [place], CAD status post stents 2, hypertension and bipolar disorder resents to the emergency department status post witnessed cardiac arrest Ambulance called at approximately 8 AM patient was found wandering on the streets confused was brought into [facility] where he had a witnessed cardiac arrest approximate down time prior to EMS arrival was 10-15 minutes. Upon EMS arrival patient asystolic intubated CPR started in the field. Found to be very cold to touch. 4 mg epinephrine, 1 amp calcium gluconate, 1 amp sodium bicarbonate given prior to arrival 07/12/17 12:18 - Physicial Exam PE: 07/12/17 12:14 Vitals: Triage Vital signs reviewed General Appearance: Intubated CPR in progress Head: Atraumatic, Eyes: Fixed dilated Throat: Intubated Cardiac: CPR in progress Lungs: Sedated, bilateral breath sounds Abdomen: Soft, non distended, normal bowel sounds Skin: Warm and dry, no rashes or lesions, no rash, no petechiae Neuro: No purposeful movements - Critical Care Time Total Critical Care Time: 90 Critical Care Statement: The care of this patient involved high complexity decision making to prevent further life threatening deterioration of the patient 's condition and/or to evaluate & treat vital organ system(s) failure or risk of failure. - Medical Decision Making 07/12/17 12:16 Upon arrival to the emergency department high-quality CPR continued. Status post 1 round epi 1 round additional sodium bicarbonate patient transiently regained pulse with a low blood pressure. Shortly after patient lost pulse CPR resumed crash femoral line placed after additional epi and vasopressin patient again regained blood pressure. Patients rectal temperature 92.Prasanna hugger placed. Warmed NS given ICU consulted. Dr. Walker. Patient admitted to ICU for further management Status post 4 L normal saline patient with downtrending blood pressure started on Levophed Head CT with no acute pathology We'll admit to ICU for definitive management. <Michael Walker - Last Filed: 07/12/17 16:53> Heart Score/ECG Review #1 07/12/17 09:43 EKG performed at [9:29] demonstrates rate of [63], right bundle branch block, Inferior infarct, age undetermined. No ST elevations. <Janae Ron - Last Filed: 07/12/17 11:13>
[2017-07-12 09:25] LABS: HEMATOCRIT 38.9 % (35.4-49); HEMOGLOBIN 12.5 GM/dL (11.7-16.9); MCHC 32.3 g/dl (32.0-35.9); MEAN CELL VOLUME 93.1 fl (80-96); MEAN PLT VOLUME 8.3 fl (7.5-11.1); PLATELET COUNT 149 K/MM3 (134-434); RBC 4.18 M/mm3 (4.00-5.60); RDW 15.2 % (11.9-15.9); WHITE BLOOD COUNT 8.2 K/mm3 (4.0-10.0)
[2017-07-12 09:29] LABS: VENOUS PC02 95.6 mmHg (38-52); VENOUS PH 6.96 (7.32-7.42)
[2017-07-12 09:32] VITALS: BMI 25.0
--- NOTE | 2017-07-12 09:34 | PDOC ---
History of Present Illness - History of Present Illness Initial Comments: 07/12/17 12:30 The patient is a 72 year old male with a history of SC, CAD s/p stenting x2, HTN , bipolar disorder who presents via EMS in cardiac arrest. EMS reports that the patient was wandering around outside and confused when he walked into a diner and had a witnessed cardiac arrest. The patient was intubated in the field and received 4 rounds of Epi, 1 amp of Bicarb, and 1 amp of calcium gluconate prior to presentation to the ER with a down time of approximately 15 min. Upon presentation the patient was hypothermic to 91.1 and in cardiac arrest. <William Ortiz - Last Filed: 07/12/17 12:29> <Michael Walker - Last Filed: 07/12/17 16:55> - General Chief Complaint: Cardiac Arrest Stated Complaint: CARDIAC ARREST Time Seen by Provider: 07/12/17 08:49 Past History - Suicide/Smoking/Psychosocial Hx Smoking History: Unknown if ever smoked <William Ortiz - Last Filed: 07/12/17 12:29> <Michael Walker - Last Filed: 07/12/17 16:55> - Past Medical History Allergies/Adverse Reactions: Allergies Allergy/AdvReac Type Severity Reaction Status Date / Time No Known Drug Allergies Allergy Verified 07/12/17 15:46 Home Medications: Ambulatory Orders Unobtainable [Unobtainable] 07/12/17 Review of Systems - Review of Systems Able to Perform ROS?: No (Cardiac Arrest) <William Ortiz - Last Filed: 07/12/17 12:29> *Physical Exam - Vital Signs Last Vital Signs Temp Pulse Resp BP Pulse Ox 92.6 F L 94 H 13 108/74 95 07/12/17 08:52 07/12/17 08:52 07/12/17 09:10 07/12/17 08:52 07/12/17 08:52 - Physical Exam Comments: 07/12/17 12:37 General Appearance: Nourished. Cold to touch in cardiac arrest. HEENT: Pinpoint pupils bilaterally. Neck: No Cervical Lymphadenopathy Respiratory/Chest: Lungs Clear, Normal Breath Sounds bilaterally. No Crackles, Rales, Rhonchi, Wheezing Cardiovascular: Asystolic on exam Gastrointestinal/Abdominal: Soft. No Guarding, Rebound, Musculoskeletal: No CVA Tenderness Extremity: Normal Capillary Refill Integumentary: Normal Color, Dry, Warm Neurologic: Unable to assess <William Ortiz - Last Filed: 07/12/17 12:29> - Vital Signs Last Vital Signs Temp Pulse Resp BP Pulse Ox 92.6 F L 60 12 106/79 96 07/12/17 08:52 07/12/17 10:32 07/12/17 10:32 07/12/17 10:32 07/12/17 10:32 <Michael Walker - Last Filed: 07/12/17 16:55> Procedures - Central Line Central Line Lumen: double Central Line Position: femoral (R) Amount of anesthesia (ccs): 0 Post Central Line Insertion: sutured, good blood return <William Ortiz - Last Filed: 07/12/17 12:29> - Central Line Central Line Lumen: double Central Line Position: femoral (L) Complications: none Post Central Line Insertion: sutured, good blood return <Michael Walker - Last Filed: 07/12/17 16:55> ED Treatment Course - LABORATORY CBC & Chemistry Diagram: 07/12/17 09:17 07/12/17 09:17 - ADDITIONAL ORDERS Additional order review: Laboratory Results 07/12/17 09:11 VBG pH 6.96 L* POC VBG pCO2 95.6 H* POC VBG pO2 152.0 H* Mixed VBG HCO3 20.2 07/12/17 09:17 RBC 4.18 MCV 93.1 MCHC 32.3 RDW 15.2 MPV 8.3 Neutrophils % No Result Required. Lymphocytes % No Result Required. - RADIOLOGY Radiology Studies Ordered: Category Date Time Status HEAD CT WITHOUT CONTRAST [CT] Stat CT Scan 07/12/17 08:51 Ordered CHEST X-RAY PORTABLE* [RAD] Stat Radiology 07/12/17 08:49 Ordered <William Ortiz - Last Filed: 07/12/17 12:29> - LABORATORY CBC & Chemistry Diagram: 07/12/17 09:17 07/12/17 09:17 - ADDITIONAL ORDERS Additional order review: Laboratory Results 07/12/17 07/12/17 07/12/17 09:50 09:42 09:17 PT with INR INR PTT (Actin FS) Anticoagulation Therapy No Result Required. Puncture Site Right brachial ABG pH 7.08 L* ABG pCO2 at Pt Temp 63.3 H* ABG pO2 at Pt Temp 572.0 H* ABG HCO3 18.0 L ABG O2 Sat (Measured) 99.2 H ABG O2 Content 18.8 ABG Base Excess -12.6 L* Anthony Test Not applicable VBG pH POC VBG pCO2 POC VBG pO2 Mixed VBG HCO3 Carboxyhemoglobin 1.3 Methemoglobin 1.0 O2 Delivery Device Mech vent Oxygen Flow Rate 100 Vent Mode 500 Vent Rate 12 Mechanical Rate A/c PEEP 5.0 Pressure Support Vent No Result Required. Sodium Potassium Chloride Carbon Dioxide Anion Gap BUN Creatinine Creat Clearance w eGFR POC Glucometer Random Glucose Calcium Total Bilirubin AST ALT Alkaline Phosphatase Creatine Kinase Creatine Kinase Index CK-MB (CK-2) Troponin I Total Protein Albumin Urine Color Yellow Urine Appearance Cloudy Urine pH 6.0 Ur Specific [place] 1.014 Urine Protein 3+ H Urine Glucose (UA) Negative Urine Ketones Negative Urine Blood 2+ H Urine Nitrite Negative Urine Bilirubin Negative Urine Urobilinogen Negative Urine WBC (Auto) 14 Urine RBC (Auto) 6 Ur Epithelial Cells Rare Hyaline Casts 2 Granular Casts 12 Urine Mucus Rare Alcohol, Quantitative < 5.0 07/12/17 07/12/17 07/12/17 09:17 09:17 09:11 PT with INR 12.00 H INR 1.06 PTT (Actin FS) 35.2 H Anticoagulation Therapy Puncture Site ABG pH ABG pCO2 at Pt Temp ABG pO2 at Pt Temp ABG HCO3 ABG O2 Sat (Measured) ABG O2 Content ABG Base Excess Anthony Test VBG pH 6.96 L* POC VBG pCO2 95.6 H* POC VBG pO2 152.0 H* Mixed VBG HCO3 20.2 Carboxyhemoglobin Methemoglobin O2 Delivery Device Oxygen Flow Rate Vent Mode Vent Rate Mechanical Rate PEEP Pressure Support Vent Sodium 140 Potassium 4.0 Chloride 102 Carbon Dioxide 22 Anion Gap 16 BUN 30 H Creatinine 2.0 H Creat Clearance w eGFR 33.10 POC Glucometer Random Glucose 122 H Calcium 8.2 L Total Bilirubin 0.3 AST 172 H ALT 131 H Alkaline Phosphatase 49 Creatine Kinase 1305 H Creatine Kinase Index 1.1 CK-MB (CK-2) 15.529 H Troponin I 0.25 H Total Protein 4.6 L Albumin 2.4 L Urine Color Urine Appearance Urine pH Ur Specific [place] Urine Protein Urine Glucose (UA) Urine Ketones Urine Blood Urine Nitrite Urine Bilirubin Urine Urobilinogen Urine WBC (Auto) Urine RBC (Auto) Ur Epithelial Cells Hyaline Casts Granular Casts Urine Mucus Alcohol, Quantitative 07/12/17 08:53 PT with INR INR PTT (Actin FS) Anticoagulation Therapy Puncture Site ABG pH ABG pCO2 at Pt Temp ABG pO2 at Pt Temp ABG HCO3 ABG O2 Sat (Measured) ABG O2 Content ABG Base Excess Anthony Test VBG pH POC VBG pCO2 POC VBG pO2 Mixed VBG HCO3 Carboxyhemoglobin Methemoglobin O2 Delivery Device Oxygen Flow Rate Vent Mode Vent Rate Mechanical Rate PEEP Pressure Support Vent Sodium Potassium Chloride Carbon Dioxide Anion Gap BUN Creatinine Creat Clearance w eGFR POC Glucometer [id number] Random Glucose Calcium Total Bilirubin AST ALT Alkaline Phosphatase Creatine Kinase Creatine Kinase Index CK-MB (CK-2) Troponin I Total Protein Albumin Urine Color Urine Appearance Urine pH Ur Specific [place] Urine Protein Urine Glucose (UA) Urine Ketones Urine Blood Urine Nitrite Urine Bilirubin Urine Urobilinogen Urine WBC (Auto) Urine RBC (Auto) Ur Epithelial Cells Hyaline Casts Granular Casts Urine Mucus Alcohol, Quantitative 07/12/17 07/12/17 09:17 08:53 RBC 4.18 MCV 93.1 MCHC 32.3 RDW 15.2 MPV 8.3 Neutrophils % No Result Required. Lymphocytes % No Result Required. POC Glucometer [phone] <Michael Walker - Last Filed: 07/12/17 16:55> Medical Decision Making - Critical Care Time Total Critical Care Time (minutes): 90 Critical Care Statement: The care of this patient involved high complexity decision making to prevent further life threatening deterioration of the patient 's condition and/or to evaluate & treat vital organ system(s) failure or risk of failure. - Medical Decision Making 07/12/17 12:54 The patient is a 72 year old male with a history of SC, CAD s/p stenting x2, HTN , bipolar disorder who presents via EMS in cardiac arrest. The patient had ROSC just prior to presentation before lose of pulses in the ED. He received 2 amps of epi, 1 amp of bicarb, and 40mg of vassopresson in the ED. ROSC was obtained briefly before lose of pulses again. A femoral central line was placed and ROSC was obtain again after 4 min. The patient was hypothermic in the ED and was being continuously warmed with a bear hugger throughout the code. The ET tube placement was confirmed with chest plain film and capnography. Head CT was unremarkable as read by our radiologist. The patient has received 5 liters of ns with a bp continuously at 70s systolic. A levophed drip was started and is currently at 30mcg/min with continued hypotension. The patient has been having continue seizure-like episodes every few minutes which spontaneously resolve although he received 2mg of ativen during the first event. We discussed the case with Dr. Estrada who accepted the patient to ICU. We discussed the case with Dr. Scales who accepted the patient for admission. The patient's cardiac arrest was likely due to hypothermia and his current seizure activity is likely due to anoxic brain injury. <William Ortiz - Last Filed: 07/12/17 12:29> *DC/Admit/Observation/Transfer <William Ortiz - Last Filed: 07/12/17 12:29> - Discharge Dispostion Admit: Yes <Michael Walker - Last Filed: 07/12/17 16:55> Diagnosis at time of Disposition: Cardiac arrest
[2017-07-12 09:37] LABS: INR 1.06 (0.82-1.09)
[2017-07-12 09:39] LABS: ACTIVATED PTT 35.2 SECONDS (26.9-34.4)
[2017-07-12 09:51] LABS: URINE APPEARANCE CLOUDY; URINE BILIRUBIN NEGATIVE (NEGATIVE); URINE BLOOD 2+ (NEGATIVE); URINE COLOR YELLOW; URINE GLUCOSE (UA) NEGATIVE (NEGATIVE); URINE KETONE NEGATIVE (NEGATIVE); URINE LEUK ESTERASE NEGATIVE (NEGATIVE); URINE NITRITE NEGATIVE (NEGATIVE); URINE UROBILINOGEN NEGATIVE mg/dL (0.2-1.0)
[2017-07-12 09:57] LABS: URINE PROTEIN 3+ (NEGATIVE)
[2017-07-12 09:58] LABS: ALBUMIN 2.4 g/dl (3.4-5.0); ANION GAP 16 (8-16); BILIRUBIN,TOTAL 0.3 mg/dL (0.2-1.0); BLOOD UREA NITROGEN 30 mg/dL (7-18); CALCIUM 8.2 mg/dL (8.5-10.1); CHLORIDE 102 mmol/L (98-107); CO2 22 mmol/L (21-32); GLUCOSE,RANDOM 122 mg/dL (74-106); SGOT/AST 172 U/L (15-37); SGPT/ALT 131 U/L (12-78); SODIUM 140 mmol/L (136-145); TOT PROT 4.6 g/dl (6.4-8.2)
[2017-07-12 09:59] LABS: EPI CELLS RARE /HPF (FEW); GRANULAR CASTS 12 /lpf; URINE HYALINE CAST 2 /lpf; URINE MUCUS RARE
[2017-07-12 10:00] LABS: ALK PHOS 49 U/L (45-117)
[2017-07-12 10:17] LABS: PLATELET ESTIMATE DECREASED
[2017-07-12 10:22] LABS: ARTERIAL BLD GAS O2 SATURATION 99.2 % (90-98.9)
[2017-07-12 10:23] LABS: CARBOXYHEMOGLOBIN 1.3 gm% (0.5-2.0)
[2017-07-12 10:25] LABS: ARTERIAL BLOOD GAS PCO2 63.3 mmHg (35-45); ARTERIAL BLOOD GAS pH 7.08 (7.35-7.45)
[2017-07-12 10:26] LABS: ARTERIAL BLOOD GAS BASE EXCESS -12.6 meq/l (-2-2)
[2017-07-12] MEDS ORDERED: SODIUM CHLORIDE 1,000 ML IV STA ×2 (10:40→12:41)
[2017-07-12] MEDS ORDERED: NOREPINEPHRINE BITARTRATE 4,000 MCG in DEXTROSE 5%-WATER - 496 ML IV SCH (10:45)
[2017-07-12] MEDS ORDERED: LORazepam 2 MG/ML SDV VIAL ONE ×2 (11:07→13:17)
[2017-07-12] MEDS ORDERED: ACETAMINOPHEN 650 MG SUPP.RECT PR PRN (13:13)
[2017-07-12] MEDS ORDERED: SODIUM CHLORIDE 1,000 ML IV SCH (13:15)
[2017-07-12] MEDS ORDERED: PROPOFOL 1,000,000 MCG/100 ML VIAL ONE (13:28)
--- NOTE | 2017-07-12 13:43 | CONSULT ---
Consult Consult Specialty:: PULM/CCM Referred by:: SPENSER Reason for Consultation:: CP Arrest - History of Present Illness Chief Complaint: Cardiac arrest History of Present Illness: 72 M, [place], CAD s/p stenting x2, HTN, and bipolar disorder. He apparently wandered into a diner confused and had a witnessed cardiac arrest. He was intubated in the field and received 4 rounds of Epinephrine, 1 amp of Bicarb, and 1 amp of calcium gluconate with ROSC after about 15 minutes. Temperature found to be 91.1. Femoral CVC was inserted and started on NE for hemodynamic support. Seizure was noted and he was given Ativan and the seizure was terminated. CXR: No acute pathology. - History Source History Provided By: Medical Record Limitations to Obtaining History: Clinical Condition - Smoking History Smoking history: Unknown if ever smoked Home Medications - Allergies Allergies/Adverse Reactions: Allergies Allergy/AdvReac Type Severity Reaction Status Date / Time No Allergy Information Allergy Verified 07/12/17 09:15 Available - Home Medications Home Medications: Ambulatory Orders Unobtainable [Unobtainable] 07/12/17 Review of Systems Unable to obtain ROS, reason: not able to provide Physical Exam Vital Signs: Vital Signs Temperature 95.2 F L 07/12/17 11:27 Pulse Rate 99 H 07/12/17 13:22 Respiratory Rate 32 H 07/12/17 13:21 Blood Pressure 71/52 07/12/17 12:54 O2 Sat by Pulse Oximetry (%) 95 07/12/17 13:22 Constitutional: Yes: Thin, Other (Vented) Eyes: Yes: Conjunctiva Clear, EOM Intact HENT: Yes: Atraumatic, Normocephalic Neck: Yes: Supple, Trachea Midline Cardiovascular: Yes: Regular Rate and Rhythm Respiratory: Yes: CTA Bilaterally, Mechanically Ventilated Gastrointestinal: Yes: Normal Bowel Sounds, Soft Renal/: Yes: WNL Musculoskeletal: Yes: WNL Extremities: Yes: WNL Edema: No Peripheral Pulses WNL: Yes Integumentary: Yes: WNL Neurological: Yes: Unresponsive Labs: CBC, BMP 07/12/17 09:17 07/12/17 09:17 Imaging - Results Chest X-ray: Report Reviewed, Image Reviewed Problem List - Problems (1) Acute respiratory failure Code(s): J96.00 - ACUTE RESPIRATORY FAILURE, UNSP W HYPOXIA OR HYPERCAPNIA (2) Cardiac arrest Code(s): I46.9 - CARDIAC ARREST, CAUSE UNSPECIFIED Assessment/Plan AC Mode of vent IVF NE for hemodynamic support TTM initiated Follow ABG Neuro evaluation in AM ECHO Overall prognosis appears poor. Dr Walker Critical care time spent in reviewing chart, evaluating patient and formulating plan - 36 minutes.
[2017-07-12] MEDS: PROPOFOL 1,000,000 MCG/100 ML VIAL IVPB SCH (14:00)
--- NOTE | 2017-07-12 14:12 | EKG ---
Test Reason : Blood Pressure : / mmHG Vent. Rate : 063 BPM Atrial Rate : 064 BPM P-R Int : 144 ms QRS Dur : 142 ms QT Int : 466 ms P-R-T Axes : 075 -25 021 degrees QTc Int : 476 ms SINUS RHYTHM WITH PREMATURE ATRIAL COMPLEXES RIGHT BUNDLE BRANCH BLOCK ABNORMAL ECG NO PREVIOUS ECGS AVAILABLE CLINICAL CORRELATION IS RECOMMENDED Confirmed by SHERRIE MALCOLM MD ([id number]) on 07/12/2017 2:11:55 PM Referred By: Confirmed By:SHERRIE MALCOLM MD
--- NOTE | 2017-07-12 14:27 | HP ---
Admitting History and Physical - Admission History of Present Illness: 72 M, [place], CAD s/p stenting x2, HTN, and bipolar disorder. He apparently wandered into a diner confused and had a witnessed cardiac arrest. He was intubated in the field and received 4 rounds of Epinephrine, 1 amp of Bicarb, and 1 amp of calcium gluconate with ROSC after about 15 minutes. Temperature found to be 91.1. Femoral CVC was inserted and started on NE for hemodynamic support. 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 Cardiovascular: Yes: CAD, HTN Pulmonary: Yes: COPD Gastrointestinal: Yes: GERD Psych: Yes: Bipolar - Past Surgical History Past Surgical History: Yes: Stent - Smoking History Smoking history: Unknown if ever smoked Home Medications - Allergies Allergies/Adverse Reactions: Allergies Allergy/AdvReac Type Severity Reaction Status Date / Time No Allergy Information Allergy Verified 07/12/17 09:15 Available - Home Medications Home Medications: Ambulatory Orders Unobtainable [Unobtainable] 07/12/17 Physical Examination Vital Signs: Vital Signs Temperature 95.2 F L 07/12/17 11:27 Pulse Rate 99 H 07/12/17 13:22 Respiratory Rate 32 H 07/12/17 13:21 Blood Pressure 71/52 07/12/17 12:54 O2 Sat by Pulse Oximetry (%) 95 07/12/17 13:22 Cardiovascular: Yes: Murmur, S1, S2 Respiratory: Yes: Mechanically Ventilated Gastrointestinal: Yes: Normal Bowel Sounds, Soft Neurological: Yes: Tremors, Unresponsive Labs: CBC, BMP 07/12/17 09:17 07/12/17 09:17 Problem List - Problems (1) Cardiac arrest Assessment/Plan: ICU SUPPORT PRESSORS FOLLOW LABS D/W SISTER--PROGNOSIS POOR SHE WILL D/W FAMILY Code(s): I46.9 - CARDIAC ARREST, CAUSE UNSPECIFIED (2) Acute respiratory failure Assessment/Plan: ON VENT MONITOR Code(s): J96.00 - ACUTE RESPIRATORY FAILURE, UNSP W HYPOXIA OR HYPERCAPNIA (3) COPD (chronic obstructive pulmonary disease) Assessment/Plan: ABOVE STEROIDS NEBS Code(s): J44.9 - CHRONIC OBSTRUCTIVE PULMONARY DISEASE, UNSPECIFIED (4) HTN (hypertension) Code(s): I10 - ESSENTIAL (PRIMARY) HYPERTENSION
[2017-07-12] MEDS: methylPREDNISolone NA SUCC 40 MG/1 ML VIAL IVPUSH SCH ×2 (16:13→23:55)
[2017-07-12] MEDS ORDERED: PNEUMOC 13-VAL CONJ-DIP CRM/PF 0.5 ML DISP.SYRIN IM ONE (17:00)
[2017-07-12] MEDS: ALBUTEROL SO4 2.5/IPRATROPIUM 0.5 INH SOL 3 ML VIAL.NEB. NEB SCH ×2 (18:01→23:30)
[2017-07-12 18:37] LABS: HEMATOCRIT 42.5 % (35.4-49); HEMOGLOBIN 13.7 GM/dL (11.7-16.9); MCHC 32.3 g/dl (32.0-35.9); MEAN CELL VOLUME 92.9 fl (80-96); MEAN PLT VOLUME 8.8 fl (7.5-11.1); PLATELET COUNT 172 K/MM3 (134-434); RBC 4.57 M/mm3 (4.00-5.60); RDW 15.7 % (11.9-15.9); WHITE BLOOD COUNT 21.1 K/mm3 (4.0-10.0)
[2017-07-12] MEDS: MIDAZOLAM 100 MG in SODIUM CHLORIDE 100 ML IVPB SCH (18:52)
[2017-07-12 18:57] LABS: ANION GAP 8 (8-16); BLOOD UREA NITROGEN 37 mg/dL (7-18); CHLORIDE 106 mmol/L (98-107); CO2 24 mmol/L (21-32); GLUCOSE,RANDOM 257 mg/dL (74-106); POTASSIUM 4.7 mmol/L (3.5-5.1); SODIUM 138 mmol/L (136-145)
--- NOTE | 2017-07-12 19:15 | CON.CARD ---
Consult Consult Specialty:: Cardiology Referred by:: Loyda Reason for Consultation:: Cardiac Arrest - History of Present Illness Chief Complaint: Cardiac Arrest History of Present Illness: 72 year old male with a pmhx of htn, psych disorder, and CAD s/p stents at [facility] in the past. Patient was crossing the stress to local diner/deli when had witnessed arrest/collapsed. CPR provided and EMS arrived. As per chart 15 minutes of resuscitation provided by ems and patient was intubated. Hypotension and started on pressors. On sedation for seizure like activity. 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 Cardio/Vascular: Yes: CAD, HTN Pulmonary: Yes: COPD Gastrointestinal: Yes: GERD Psych: Yes: Bipolar - Past Surgical History Past Surgical History: Yes: Stent - Smoking History Smoking history: Unknown if ever smoked Home Medications - Allergies Allergies/Adverse Reactions: Allergies Allergy/AdvReac Type Severity Reaction Status Date / Time No Known Drug Allergies Allergy Verified 07/12/17 15:46 - Home Medications Home Medications: Ambulatory Orders Unobtainable [Unobtainable] 07/12/17 Vital Signs: Vital Signs Temperature 92.4 F L 07/12/17 18:09 Pulse Rate 75 07/12/17 18:09 Respiratory Rate 16 07/12/17 18:09 Blood Pressure 128/80 07/12/17 18:09 O2 Sat by Pulse Oximetry (%) 96 07/12/17 18:43 Respiratory: Yes: Mechanically Ventilated Gastrointestinal: Yes: Soft Cardiovascular: Yes: Regular Rate and Rhythm JVD: No Carotid Bruit: No Heart Sounds: Yes: S1, S2 Edema: No - Other Data Labs, Other Data: CBC, BMP 07/12/17 18:00 INR, PTT INR 1.06 (0.82-1.09) 07/12/17 09:17 Troponin, BNP 07/12/17 07/12/17 09:17 13:45 Troponin I 0.25 H 1.15 H* D Troponin, BNP 07/12/17 07/12/17 09:17 13:45 Troponin I 0.25 H 1.15 H* D Imaging - Results Chest X-ray: Report Reviewed EKG: Image Reviewed Problem List - Problems (1) Cardiac arrest Code(s): I46.9 - CARDIAC ARREST, CAUSE UNSPECIFIED Assessment/Plan 72 year old male with a pmhx of htn, psych disorder, and CAD s/p stents at [facility] in the past. Patient was crossing the stress to local diner/deli when had witnessed arrest/collapsed. CPR provided and EMS arrived. As per chart 15 minutes of resuscitation provided by ems and patient was intubated. Hypotension and started on pressors. On sedation for seizure like activity. CXR: clear CT head no acute m/s/b 1) Cardiac arrest unclear etiology. CT head no acute stroke. EKG sinus with pacs rbbb and no acute st elevations noted Would repeat ekg Cardiac enzymes elevated which may be due to cardiac arrest but given CAD hx and cardiac arrest would consider cardiac etiology and treat with aspirin 81mg daily and heparin IV as per protocol if no contraindications or worry of bleeding. Discussed with Dr. Walker. Plan for echocardiogram On levophed for hemodynamic support Will need to see patients brain activity and if recovers and not with anoxic brain injury than would plan for cardiac cath.
[2017-07-12] MEDS ORDERED: HEPARIN NA (PORCINE) 5,000 UNITS/ML 1ML VIAL IVPUSH PRN ×2 (19:16)
[2017-07-12 19:32] LABS: CALCIUM 6.6 mg/dL (8.5-10.1)
[2017-07-12] MEDS: HEPARIN SOD,PORK IN 0.45% NACL 25,000 UNITS/500 ML INFUS.BAG IVPB SCH (20:18)
[2017-07-12] MEDS ORDERED: FENTANYL INJECTION 500 MCG in DEXTROSE 5%-WATER - 90 ML IVPB SCH (21:00)
[2017-07-12] MEDS ORDERED: VASOPRESSIN 50 UNITS in SODIUM CHLORIDE 97.5 ML IVPB SCH (21:00)
[2017-07-12] MEDS ORDERED: fentaNYL CITRATE 250 MCG/5 ML VIAL ONE (21:19)
[2017-07-12] MEDS ORDERED: NOREPINEPHRINE BITARTRATE 4 MG/4 ML ML IV ONE (21:20)
[2017-07-12] MEDS ORDERED: VASOPRESSIN 20 UNITS/ML VIAL IV ONE (21:26)
[2017-07-12] MEDS: NOREPINEPHRINE BITARTRATE 8,000 MCG in DEXTROSE 5%-WATER - 492 ML IV SCH (21:40)
[2017-07-12] MEDS: FENTANYL INJECTION 500 MCG in DEXTROSE 5%-WATER - 90 ML IVPB SCH (22:00)
[2017-07-12] MEDS: CHLORHEXIDINE GLUCONATE 4% CLEANSER FOR DECOLONIZATION TP SCH (23:00)
--- NOTE | 2017-07-12 23:08 | PN ---
Progress Note (short form) - Note Progress Note: ICU A-LINE INSERTION NOTE: INDICATION: Shock. CONSENT: Pt is sedated, intubated, uncon/unresp. Consent obtained via telephone from sister & HCP Rohini PROCEDURE: L Hand --> Anthony's test confirmed good arterial blood flow in both the L radial & ulnar arteries. The L wrist was secured in position, prepped, & draped in the usual sterile fashion. TIME OUT The site was anesthetized w/ 3cc of 1% Lidocaine. A 20G needle was inserted into the L radial artery on the first attempt w/ pulsating bright red blood return. A 20G catheter was inserted into the artery via the Seldinger technique & the arterial line was connected. A good tracing & arterial waveform was confirmed. The catheter was secured in place w/ 2.0 Nylon sutures X2 and a bio- patch & sterile dressing was applied. Post procedure re-eval confirmed a pink warm L hand cap-refill < 2sec in all 5 L hand digits. Pt tolerated the procedure well. Farhan Martinez, ACNP-BC [id number] [facility] PULM / CCM
[2017-07-12] MEDS: MUPIROCIN 2% TOPICAL OINTMENT FOR DECOLONIZATION NS SCH (23:30)
--- NOTE | 2017-07-13 00:03 | PROC ---
Central Line Insertion Indication: CVP Monitoring, Poor Venous Access, Sepsis, Vasopressor Risks and Benefits Explained: Yes Consent on Chart: Yes Central Line: Triple Lumen Catheter Anesthesia: 1% Lidocaine Sterile Technique: Yes Ultrasound Guided Assistance: Yes Position: Left Internal Jugular Post Insertion: Yes: Bilateral Breath Sounds, Bilateral Chest Expansion, Chest X-Ray Ordered Sterile Dressing Applied: Yes
[2017-07-13 00:45] LABS: ARTERIAL BLD GAS O2 SATURATION 97.5 % (90-98.9); ARTERIAL BLOOD GAS pH 7.04 (7.35-7.45)
[2017-07-13 00:48] LABS: ARTERIAL BLOOD GAS BASE EXCESS -11.9 meq/l (-2-2); ARTERIAL BLOOD GAS PCO2 80.9 mmHg (35-45)
[2017-07-13] MEDS ORDERED: CISATRACURIUM BESYLATE 200 MG/20 ML VIAL IV ONE (01:30)
[2017-07-13] MEDS ORDERED: VECURONIUM BROMIDE 50 MG VIAL IVPUSH ONE (01:32)
[2017-07-13] MEDS ORDERED: VECURONIUM BROMIDE 50 MG in DEXTROSE 5%-WATER - 250 ML IVPB SCH (01:45)
[2017-07-13] MEDS: FENTANYL INJECTION 500 MCG in DEXTROSE 5%-WATER - 90 ML IVPB SCH (02:00)
[2017-07-13 02:16] LABS: HEMOGLOBIN 13.5 GM/dL (11.7-16.9); MCH 29.8 pg (25.7-33.7); MCHC 32.1 g/dl (32.0-35.9); MEAN CELL VOLUME 92.7 fl (80-96); MEAN PLT VOLUME 8.6 fl (7.5-11.1); PLATELET COUNT 157 K/MM3 (134-434); RBC 4.53 M/mm3 (4.00-5.60); RDW 15.1 % (11.9-15.9)
[2017-07-13] MEDS ORDERED: PT OWN MED DRAWER 7, Y5N ONE (02:17)
[2017-07-13] MEDS ORDERED: HEMOQUE CONTROL SOLUTION ONE (02:24)
[2017-07-13] MEDS ORDERED: VECURONIUM BROMIDE 10 MG VIAL ONE (02:26)
[2017-07-13] MEDS: PIPERACIL/TAZOB 3.375 GM 3.375 GM/50 ML PREMIX IVPB SCH ×2 (02:30→10:20)
[2017-07-13 02:47] LABS: ALBUMIN 2.8 g/dl (3.4-5.0); ALK PHOS 55 U/L (45-117); ANION GAP 8 (8-16); BILIRUBIN,TOTAL 0.3 mg/dL (0.2-1.0); BLOOD UREA NITROGEN 44 mg/dL (7-18); CHLORIDE 108 mmol/L (98-107); CO2 24 mmol/L (21-32); CREATININE 2.3 mg/dL (0.7-1.3); GLUCOSE,RANDOM 139 mg/dL (74-106); POTASSIUM 5.5 mmol/L (3.5-5.1); SGOT/AST 380 U/L (15-37); SGPT/ALT 209 U/L (12-78); SODIUM 140 mmol/L (136-145); TOT PROT 5.2 g/dl (6.4-8.2)
[2017-07-13 02:50] LABS: CALCIUM 6.7 mg/dL (8.5-10.1)
[2017-07-13] MEDS ORDERED: LORazepam 2 MG/ML SDV VIAL IVPUSH PRN (02:57)
[2017-07-13] MEDS ORDERED: methylPREDNISolone NA SUCC 40 MG/1 ML VIAL IVPUSH SCH (03:00)
[2017-07-13] MEDS ORDERED: fentaNYL CITRATE 250 MCG/5 ML VIAL ONE (03:54)
[2017-07-13] MEDS ORDERED: VANCOMYCIN 1,000 MG in DEXTROSE 5%-WATER - 250 ML IVPB ONE (04:00)
[2017-07-13] MEDS ORDERED: ALBUTEROL SO4 0.083% IH SOL 2.5 MG/3 ML VIAL.NEB. NEB PRN (04:02)
[2017-07-13] MEDS ORDERED: ALBUTEROL SO4 0.083% IH SOL 2.5 MG/3 ML VIAL.NEB. NEB STA (04:03)
[2017-07-13 04:34] LABS: ARTERIAL BLD GAS O2 SATURATION 99.2 % (90-98.9); ARTERIAL BLOOD GAS PCO2 49.4 mmHg (35-45)
[2017-07-13 04:38] LABS: ARTERIAL BLOOD GAS pH 7.17 (7.35-7.45)
[2017-07-13] MEDS: CALCIUM GLUCONATE 10% - 1,000 MG/10 ML VIAL IVPB ONE ×4 (05:20→05:35)
[2017-07-13 06:21] LABS: BASO % 0.2 % (0-2.0); EOS % 0.1 % (0-4.5); HEMATOCRIT 38.1 % (35.4-49); HEMOGLOBIN 12.7 GM/dL (11.7-16.9); LYMPH % 2.1 % (8-40); MCH 30.6 pg (25.7-33.7); MCHC 33.4 g/dl (32.0-35.9); MEAN CELL VOLUME 91.6 fl (80-96); MEAN PLT VOLUME 8.9 fl (7.5-11.1); MONO % 6.5 % (3.8-10.2); NEUT % 91.1 % (42.8-82.8); PLATELET COUNT 130 K/MM3 (134-434); RBC 4.16 M/mm3 (4.00-5.60); RDW 15.1 % (11.9-15.9); WHITE BLOOD COUNT 13.7 K/mm3 (4.0-10.0)
[2017-07-13 06:30] LABS: INR 1.14 (0.82-1.09); PROTHROMBIN TIME (PATIENT) 12.9 SEC (9.98-11.88)
--- NOTE | 2017-07-13 07:21 | PN ---
Physical Exam: SUBJECTIVE: Patient intubated and sedated. paralyzewd and increased sedation overnight because of dysynchrony with vent settings because of myoclonic activity vs. seizures. OBJECTIVE: Vital Signs Period Temp Pulse Resp BP Sys/Mock Pulse Ox Last 24 Hr 90.9 F-100.6 F 53-99 12-60 0-141/0-98 95-100 GENERAL: Sedated HEAD: Normal with no signs of trauma. EYES: PERRL- constricted but reactive. ENT: Ears normal, nares patent, intubated LUNGS: mechanical breath sounds. HEART: Regular rate and rhythm, S1, S2 without murmur, rub or gallop. ABDOMEN: Soft, nontender, nondistended, normoactive bowel sounds, no guarding, no rebound, no hepatosplenomegaly, no masses. EXTREMITIES: cool extremities, non mottled skin NEUROLOGICAL: Sedated and paralyzed. Train of fours inconsistent response. Over paralyzed. SKIN: Warm centrally but cool periphery, dry, normal turgor, no rashes or lesions noted Laboratory Results - last 24 hr 07/12/17 07/12/17 07/12/17 08:53 09:11 09:17 WBC 8.2 RBC 4.18 Hgb 12.5 Hct 38.9 MCV 93.1 MCH 30.0 MCHC 32.3 RDW 15.2 Plt Count 149 MPV 8.3 Total Counted 100 Neutrophils % No Result Required. Neutrophils % (Manual) 75.0 Band Neutrophils % 8.0 Lymphocytes % No Result Required. Lymphocytes % (Manual) 8.0 Monocytes % Monocytes % (Manual) 8 Eosinophils % Basophils % Metamyelocytes 1 Platelet Estimate Decreased Platelet Comment No clumping noted PT with INR INR PTT (Actin FS) Anticoagulation Therapy Puncture Site ABG pH ABG pCO2 at Pt Temp ABG pO2 at Pt Temp ABG HCO3 ABG O2 Sat (Measured) ABG O2 Content ABG Base Excess Anthony Test VBG pH 6.96 L* POC VBG pCO2 95.6 H* POC VBG pO2 152.0 H* Mixed VBG HCO3 20.2 Carboxyhemoglobin Methemoglobin O2 Delivery Device Oxygen Flow Rate Vent Mode Vent Rate Mechanical Rate PEEP Pressure Support Vent Sodium Potassium Chloride Carbon Dioxide Anion Gap BUN Creatinine Creat Clearance w eGFR POC Glucometer [phone] Random Glucose Lactic Acid Calcium Magnesium Total Bilirubin AST ALT Alkaline Phosphatase Creatine Kinase Creatine Kinase Index CK-MB (CK-2) Troponin I Total Protein Albumin Urine Color Urine Appearance Urine pH Ur Specific [place] Urine Protein Urine Glucose (UA) Urine Ketones Urine Blood Urine Nitrite Urine Bilirubin Urine Urobilinogen Ur Leukocyte Esterase Urine WBC (Auto) Urine RBC (Auto) Ur Epithelial Cells Hyaline Casts Granular Casts Urine Mucus Alcohol, Quantitative Blood Type Antibody Screen 07/12/17 07/12/17 07/12/17 09:17 09:17 09:17 WBC RBC Hgb Hct MCV MCH MCHC RDW Plt Count MPV Total Counted Neutrophils % Neutrophils % (Manual) Band Neutrophils % Lymphocytes % Lymphocytes % (Manual) Monocytes % Monocytes % (Manual) Eosinophils % Basophils % Metamyelocytes Platelet Estimate Platelet Comment PT with INR 12.00 H INR 1.06 PTT (Actin FS) 35.2 H Anticoagulation Therapy Puncture Site ABG pH ABG pCO2 at Pt Temp ABG pO2 at Pt Temp ABG HCO3 ABG O2 Sat (Measured) ABG O2 Content ABG Base Excess Anthony Test VBG pH POC VBG pCO2 POC VBG pO2 Mixed VBG HCO3 Carboxyhemoglobin Methemoglobin O2 Delivery Device Oxygen Flow Rate Vent Mode Vent Rate Mechanical Rate PEEP Pressure Support Vent Sodium 140 Potassium 4.0 Chloride 102 Carbon Dioxide 22 Anion Gap 16 BUN 30 H Creatinine 2.0 H Creat Clearance w eGFR 33.10 POC Glucometer Random Glucose 122 H Lactic Acid 11.6 H* Calcium 8.2 L Magnesium Total Bilirubin 0.3 AST 172 H ALT 131 H Alkaline Phosphatase 49 Creatine Kinase 1305 H Creatine Kinase Index 1.1 CK-MB (CK-2) 15.529 H Troponin I 0.25 H Total Protein 4.6 L Albumin 2.4 L Urine Color Urine Appearance Urine pH Ur Specific [place] Urine Protein Urine Glucose (UA) Urine Ketones Urine Blood Urine Nitrite Urine Bilirubin Urine Urobilinogen Ur Leukocyte Esterase Urine WBC (Auto) Urine RBC (Auto) Ur Epithelial Cells Hyaline Casts Granular Casts Urine Mucus Alcohol, Quantitative Blood Type Antibody Screen 07/12/17 07/12/17 07/12/17 09:17 09:17 09:42 WBC RBC Hgb Hct MCV MCH MCHC RDW Plt Count MPV Total Counted Neutrophils % Neutrophils % (Manual) Band Neutrophils % Lymphocytes % Lymphocytes % (Manual) Monocytes % Monocytes % (Manual) Eosinophils % Basophils % Metamyelocytes Platelet Estimate Platelet Comment PT with INR INR PTT (Actin FS) Anticoagulation Therapy Puncture Site ABG pH ABG pCO2 at Pt Temp ABG pO2 at Pt Temp ABG HCO3 ABG O2 Sat (Measured) ABG O2 Content ABG Base Excess Anthony Test VBG pH POC VBG pCO2 POC VBG pO2 Mixed VBG HCO3 Carboxyhemoglobin Methemoglobin O2 Delivery Device Oxygen Flow Rate Vent Mode Vent Rate Mechanical Rate PEEP Pressure Support Vent Sodium Potassium Chloride Carbon Dioxide Anion Gap BUN Creatinine Creat Clearance w eGFR POC Glucometer Random Glucose Lactic Acid Calcium Magnesium Total Bilirubin AST ALT Alkaline Phosphatase Creatine Kinase Creatine Kinase Index CK-MB (CK-2) Troponin I Total Protein Albumin Urine Color Yellow Urine Appearance Cloudy Urine pH 6.0 Ur Specific [place] 1.014 Urine Protein 3+ H Urine Glucose (UA) Negative Urine Ketones Negative Urine Blood 2+ H Urine Nitrite Negative Urine Bilirubin Negative Urine Urobilinogen Negative Ur Leukocyte Esterase Negative Urine WBC (Auto) 14 Urine RBC (Auto) 6 Ur Epithelial Cells Rare Hyaline Casts 2 Granular Casts 12 Urine Mucus Rare Alcohol, Quantitative < 5.0 Blood Type A POSITIVE Antibody Screen Negative 07/12/17 07/12/17 07/12/17 09:50 13:45 13:45 WBC RBC Hgb Hct MCV MCH MCHC RDW Plt Count MPV Total Counted Neutrophils % Neutrophils % (Manual) Band Neutrophils % Lymphocytes % Lymphocytes % (Manual) Monocytes % Monocytes % (Manual) Eosinophils % Basophils % Metamyelocytes Platelet Estimate Platelet Comment PT with INR INR PTT (Actin FS) Anticoagulation Therapy No Result Required. Puncture Site Right brachial ABG pH 7.08 L* ABG pCO2 at Pt Temp 63.3 H* ABG pO2 at Pt Temp 572.0 H* ABG HCO3 18.0 L ABG O2 Sat (Measured) 99.2 H ABG O2 Content 18.8 ABG Base Excess -12.6 L* Anthony Test Not applicable VBG pH POC VBG pCO2 POC VBG pO2 Mixed VBG HCO3 Carboxyhemoglobin 1.3 Methemoglobin 1.0 O2 Delivery Device Mech vent Oxygen Flow Rate 100 Vent Mode 500 Vent Rate 12 Mechanical Rate A/c PEEP 5.0 Pressure Support Vent No Result Required. Sodium Potassium Chloride Carbon Dioxide Anion Gap BUN Creatinine Creat Clearance w eGFR POC Glucometer Random Glucose Lactic Acid 1.4 Calcium Magnesium 2.5 H Total Bilirubin AST ALT Alkaline Phosphatase Creatine Kinase Creatine Kinase Index CK-MB (CK-2) Troponin I Total Protein Albumin Urine Color Urine Appearance Urine pH Ur Specific [place] Urine Protein Urine Glucose (UA) Urine Ketones Urine Blood Urine Nitrite Urine Bilirubin Urine Urobilinogen Ur Leukocyte Esterase Urine WBC (Auto) Urine RBC (Auto) Ur Epithelial Cells Hyaline Casts Granular Casts Urine Mucus Alcohol, Quantitative Blood Type Antibody Screen 07/12/17 07/12/17 07/12/17 13:45 18:00 18:00 WBC 21.1 H D RBC 4.57 Hgb 13.7 Hct 42.5 MCV 92.9 MCH 30.0 MCHC 32.3 RDW 15.7 Plt Count 172 MPV 8.8 Total Counted Neutrophils % Neutrophils % (Manual) Band Neutrophils % Lymphocytes % Lymphocytes % (Manual) Monocytes % Monocytes % (Manual) Eosinophils % Basophils % Metamyelocytes Platelet Estimate Platelet Comment PT with INR INR PTT (Actin FS) Anticoagulation Therapy Puncture Site ABG pH ABG pCO2 at Pt Temp ABG pO2 at Pt Temp ABG HCO3 ABG O2 Sat (Measured) ABG O2 Content ABG Base Excess Anthony Test VBG pH POC VBG pCO2 POC VBG pO2 Mixed VBG HCO3 Carboxyhemoglobin Methemoglobin O2 Delivery Device Oxygen Flow Rate Vent Mode Vent Rate Mechanical Rate PEEP Pressure Support Vent Sodium 138 Potassium 4.7 Chloride 106 Carbon Dioxide 24 Anion Gap 8 BUN 37 H D Creatinine 2.0 H Creat Clearance w eGFR POC Glucometer Random Glucose 257 H D Lactic Acid Calcium 6.6 L* Magnesium Total Bilirubin AST ALT Alkaline Phosphatase Creatine Kinase 2751 H Creatine Kinase Index 1.9 CK-MB (CK-2) 53.911 H Troponin I 1.15 H* D Total Protein Albumin Urine Color Urine Appearance Urine pH Ur Specific [place] Urine Protein Urine Glucose (UA) Urine Ketones Urine Blood Urine Nitrite Urine Bilirubin Urine Urobilinogen Ur Leukocyte Esterase Urine WBC (Auto) Urine RBC (Auto) Ur Epithelial Cells Hyaline Casts Granular Casts Urine Mucus Alcohol, Quantitative Blood Type Antibody Screen 07/13/17 07/13/17 07/13/17 00:30 01:30 01:30 WBC 19.0 H RBC 4.53 Hgb 13.5 Hct 42.0 MCV 92.7 MCH 29.8 MCHC 32.1 RDW 15.1 Plt Count 157 MPV 8.6 Total Counted Neutrophils % Neutrophils % (Manual) Band Neutrophils % Lymphocytes % Lymphocytes % (Manual) Monocytes % Monocytes % (Manual) Eosinophils % Basophils % Metamyelocytes Platelet Estimate Platelet Comment PT with INR INR PTT (Actin FS) Anticoagulation Therapy No Result Required. Puncture Site Arterial line ABG pH 7.04 L* ABG pCO2 at Pt Temp 80.9 H* D ABG pO2 at Pt Temp 120.0 H D ABG HCO3 20.9 L ABG O2 Sat (Measured) 97.5 ABG O2 Content 19.0 ABG Base Excess -11.9 L* Anthony Test No Result Required. VBG pH POC VBG pCO2 POC VBG pO2 Mixed VBG HCO3 Carboxyhemoglobin Methemoglobin O2 Delivery Device Vent Oxygen Flow Rate 50% Vent Mode A/c Vent Rate 30 Mechanical Rate No Result Required. PEEP 5.0 Pressure Support Vent 400 Sodium 140 Potassium 5.5 H Chloride 108 H Carbon Dioxide 24 Anion Gap 8 BUN 44 H Creatinine 2.3 H Creat Clearance w eGFR 28.17 POC Glucometer Random Glucose 139 H D Lactic Acid Calcium 6.7 L* Magnesium Total Bilirubin 0.3 AST 380 H D ALT 209 H D Alkaline Phosphatase 55 Creatine Kinase Creatine Kinase Index CK-MB (CK-2) Troponin I Total Protein 5.2 L Albumin 2.8 L Urine Color Urine Appearance Urine pH Ur Specific [place] Urine Protein Urine Glucose (UA) Urine Ketones Urine Blood Urine Nitrite Urine Bilirubin Urine Urobilinogen Ur Leukocyte Esterase Urine WBC (Auto) Urine RBC (Auto) Ur Epithelial Cells Hyaline Casts Granular Casts Urine Mucus Alcohol, Quantitative Blood Type Antibody Screen 07/13/17 07/13/17 07/13/17 01:30 01:30 01:30 WBC RBC Hgb Hct MCV MCH MCHC RDW Plt Count MPV Total Counted Neutrophils % Neutrophils % (Manual) Band Neutrophils % Lymphocytes % Lymphocytes % (Manual) Monocytes % Monocytes % (Manual) Eosinophils % Basophils % Metamyelocytes Platelet Estimate Platelet Comment PT with INR INR PTT (Actin FS) 145.1 H D Anticoagulation Therapy Puncture Site ABG pH ABG pCO2 at Pt Temp ABG pO2 at Pt Temp ABG HCO3 ABG O2 Sat (Measured) ABG O2 Content ABG Base Excess Anthony Test VBG pH POC VBG pCO2 POC VBG pO2 Mixed VBG HCO3 Carboxyhemoglobin Methemoglobin O2 Delivery Device Oxygen Flow Rate Vent Mode Vent Rate Mechanical Rate PEEP Pressure Support Vent Sodium Potassium Chloride Carbon Dioxide Anion Gap BUN Creatinine Creat Clearance w eGFR POC Glucometer Random Glucose Lactic Acid 1.0 Calcium Magnesium Total Bilirubin AST ALT Alkaline Phosphatase Creatine Kinase Creatine Kinase Index CK-MB (CK-2) Troponin I 1.68 H* D Total Protein Albumin Urine Color Urine Appearance Urine pH Ur Specific [place] Urine Protein Urine Glucose (UA) Urine Ketones Urine Blood Urine Nitrite Urine Bilirubin Urine Urobilinogen Ur Leukocyte Esterase Urine WBC (Auto) Urine RBC (Auto) Ur Epithelial Cells Hyaline Casts Granular Casts Urine Mucus Alcohol, Quantitative Blood Type Antibody Screen 07/13/17 07/13/17 07/13/17 04:00 05:50 05:50 WBC 13.7 H RBC 4.16 Hgb 12.7 Hct 38.1 MCV 91.6 MCH 30.6 MCHC 33.4 RDW 15.1 Plt Count 130 L MPV 8.9 Total Counted Neutrophils % 91.1 H Neutrophils % (Manual) Band Neutrophils % Lymphocytes % 2.1 L Lymphocytes % (Manual) Monocytes % 6.5 Monocytes % (Manual) Eosinophils % 0.1 Basophils % 0.2 Metamyelocytes Platelet Estimate Platelet Comment PT with INR 12.90 H INR 1.14 PTT (Actin FS) Anticoagulation Therapy Puncture Site Arterial line ABG pH 7.17 L* ABG pCO2 at Pt Temp 49.4 H D ABG pO2 at Pt Temp 220.0 H* D ABG HCO3 17.3 L ABG O2 Sat (Measured) 99.2 H ABG O2 Content 18.6 ABG Base Excess -11.0 L* Anthony Test No Result Required. VBG pH POC VBG pCO2 POC VBG pO2 Mixed VBG HCO3 Carboxyhemoglobin Methemoglobin O2 Delivery Device Oxygen Flow Rate 50% Vent Mode A/c Vent Rate 35 Mechanical Rate PEEP 5.0 Pressure Support Vent 400 Sodium Potassium Chloride Carbon Dioxide Anion Gap BUN Creatinine Creat Clearance w eGFR POC Glucometer Random Glucose Lactic Acid Calcium Magnesium Total Bilirubin AST ALT Alkaline Phosphatase Creatine Kinase Creatine Kinase Index CK-MB (CK-2) Troponin I Total Protein Albumin Urine Color Urine Appearance Urine pH Ur Specific [place] Urine Protein Urine Glucose (UA) Urine Ketones Urine Blood Urine Nitrite Urine Bilirubin Urine Urobilinogen Ur Leukocyte Esterase Urine WBC (Auto) Urine RBC (Auto) Ur Epithelial Cells Hyaline Casts Granular Casts Urine Mucus Alcohol, Quantitative Blood Type Antibody Screen Active Medications Generic Name Dose Route Start Last Admin Trade Name Freq PRN Reason Stop Dose Admin Acetaminophen 650 mg 07/12/17 13:13 Tylenol Suppository - RI Q6H PRN FEVER OR PAIN Albuterol Sulfate 1 amp 07/13/17 04:02 Ventolin 0.083% Nebulizer Soln - NEB Q4H PRN SHORT OF BREATH/WHEEZING Chlorhexidine Gluconate 1 applic 07/12/17 22:00 07/12/17 23:00 Hibiclens For Decolonization - TP 1 applic HS DUSTIN Administration Heparin Sodium (Porcine) 1,000 unit 07/12/17 19:16 Heparin - IVPUSH PRN PRN Heparin Heparin Sodium (Porcine) 5,000 unit 07/12/17 19:16 Heparin - IVPUSH PRN PRN Heparin Sodium Chloride 1,000 mls @ 125 mls/hr 07/12/17 13:15 07/12/17 14:00 Normal Saline - IV 125 mls/hr ASDIR DUSTIN Administration Propofol 1,000,000 mcg in 100 mls @ 2.177 mls/hr 07/12/17 14:00 07/12/17 14: 00 Diprivan - IVPB 10 mcg/kg/min TITR DUSTIN 4.355 mls/hr Protocol Administration 5 MCG/KG/MIN Midazolam HCl 100 mg/ Sodium 100 mls @ 2 mls/hr 07/12/17 18:00 07/13/17 02:00 Chloride IVPB 8 mg/hr TITR DUSTIN 8 mls/hr Protocol Titration 2 MG/HR HEPARIN SOD,PORK IN 0.45% NACL 25,000 units in 500 mls @ 20 mls/hr 07/12/17 19 :30 07/13/17 04:00 Heparin-1/2ns 25,000 Units/500 IVPB 850 units/hr TITR DUSTIN 17 mls/hr Protocol Titration 1,000 UNITS/HR Fentanyl 500 mcg/ Dextrose 100 mls @ 0 mls/hr 07/12/17 21:00 07/13/17 02:00 IVPB 20 mls/hr TITR DUSTIN Administration Protocol 0 MCG/HR Vasopressin 50 units/ Sodium 100 mls @ 4.8 mls/hr 07/12/17 21:00 07/12/17 23: 00 Chloride IVPB 2.4 units/hr TITR DUSTNI 4.8 mls/hr Protocol Administration 2.4 UNITS/HR Norepinephrine Bitartrate 8, 500 mls @ 18.75 mls/hr 07/12/17 21:30 07/13/17 04:00 000 mcg/ Dextrose IV 3 mcg/min TITR DUSTIN 11.25 mls/hr Protocol Titration 5 MCG/MIN Vecuronium Monson 50 mg/ 250 mls @ 20.09 mls/hr 07/13/17 01:45 07/13/17 02: 30 Dextrose IVPB 1 mcg/kg/min TITR DUSTIN 20.09 mls/hr Protocol Administration 1 MCG/KG/MIN Vancomycin HCl 1,000 mg/ 250 mls @ 250 mls/hr 07/14/17 06:00 Dextrose IVPB DAILY@0600 DUSTIN Protocol Vancomycin HCl 1,250 mg/ 250 mls @ 250 mls/hr 07/14/17 06:00 Dextrose IVPB DAILY@0600 [facility] Protocol Lorazepam 2 mg 07/13/17 02:57 Ativan Injection - IVPUSH Q4H PRN ANXIETY Methylprednisolone Sodium Succinate 60 mg 07/12/17 14:00 07/12/17 23:55 Solu-Medrol - IVPUSH 60 mg QID DUSTIN Administration Mupirocin 1 applic 07/12/17 22:00 07/12/17 23:30 Bactroban Ointment (For Decolonization) - NS 07/17/17 21:59 1 applic BID DUSTIN Administration Piperacillin/Tazobactam/Dextrose 3.375 gm 07/13/17 02:00 Zosyn 3.375gm Ivpb (Premix) IVPB Q8H-IV DUSTIN Piperacillin/Tazobactam/Dextrose 3.375 gm 07/13/17 02:00 07/13/17 02:30 Zosyn 3.375gm Ivpb (Premix) IVPB 07/13/17 10:01 3.375 gm Q8H-IV DUSTIN Administration ASSESSMENT/PLAN: 72 M with PMH of GA, CAD s/p stenting x2, HTN, and bipolar disorder presenting s /p cardiac arrest with ROSC after 15 minutes, intubated in the field and received 4 rounds of Epinephrine, 1 amp of Bicarb, and 1 amp of calcium gluconate and found to be 91.1 on rectal temp. Currently intubated on multiple sedatives, paralytics, and pressers. Neuro: #AMS: Patient is sedated and paralyzed currently so difficult to assess mental status - Stop Vec - Slowly remove fentanyl, midazolam, and propofol in that order #Seizure activity vs. myclonus: - Start keppra 750 BID CV: # Hypotension: Likely due to septic vs. cardiogenic shock - Titrate off vaso and decrease levo as needed - fluid boluses PRN - Pull right fem line # Cardiac arrest: Unclear etiology but less likely acute GA. We have high suspicion for PE given new RBBB pattern with elevated troponins - Tropnonin peaked at 1.68 - Continue heparin drip for another 24 hours which would treat both NSTEMI and PE - F/U echo for right heart strain - F/U LE dopplers for DVT - Can consider CTA if kidney function improves #lactic acidosis: resolved Pulm: #Hypoxic respiratory failure/ Hypercapnic respiratory failure: secondary to arrest likely but patient has known COPD and ABG demonstrated PCO2 in 80s in admission - Current ABGs improved in terms of respiratory acidosis - repeat ABG tomorrow morning - Will reassess to see if he can initiate on his own breath - Continue ARDS net with plat <30 and TV @ 6-8 MG/KG as goal (396-528 mL). - Continue steroids - permissive hypercapnia and acidosis (goal >7.15) FEN: - replete lytes PRN PPX: - Heparin GTT - Protonix Dispo: - Vented and on pressers. Will need both to resolve with consciousness in order to transfer. - Bleak outlook and discussed with family per primary team. GOC will be reassessed in 24 hours Visit type - Emergency Visit Emergency Visit: No - New Patient This patient is new to me today: Yes Date on this admission: 07/13/17 - Critical Care Critical Care patient: Yes Total Critical Care Time (in minutes): 35 Critical Care Statement: The care of this patient involved high complexity decision making to prevent further life threatening deterioration of the patient 's condition and/or to evaluate & treat vital organ system(s) failure or risk of failure. - Discharge Referral Referred to [facility] No
[2017-07-13 08:00] LABS: ARTERIAL BLD GAS O2 SATURATION 99.4 % (90-98.9); ARTERIAL BLOOD GAS BASE EXCESS -10.4 meq/l (-2-2); ARTERIAL BLOOD GAS PCO2 41.1 mmHg (35-45); ARTERIAL BLOOD GAS pH 7.23 (7.35-7.45)
[2017-07-13 08:08] LABS: ALLENS TEST POSITIVE
--- NOTE | 2017-07-13 08:20 | CON.NEURO ---
Consult - History of Present Illness History of Present Illness: 72 year old male with a pmhx of htn, psych disorder, and CAD s/p stents at [facility] in the past. Patient was crossing the stress to local diner/deli when had witnessed arrest/collapsed. CPR provided and EMS arrived. As per chart 15 minutes of resuscitation provided by ems and patient was intubated. Hypotension and started on pressors. On sedation for seizure like activity - in field, noted to have myoclonic activity overnight--on propofol and versed and fentanyl. pt unresponsive. on hypothermic protocol. CT HD : mild forntal white matter changes. elevated LFTS, trop/CPK. breathe 35/35, on vent. 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 Cardio/Vascular: Yes: CAD, HTN Pulmonary: Yes: COPD Gastrointestinal: Yes: GERD Psych: Yes: Bipolar - Past Surgical History Past Surgical History: Yes: Stent - Alcohol/Substance Use Hx Alcohol Use: No - Smoking History Smoking history: Unknown if ever smoked Have you smoked in the past 12 months: Yes Aproximately how many cigarettes per day: 20 Home Medications - Allergies Allergies/Adverse Reactions: Allergies Allergy/AdvReac Type Severity Reaction Status Date / Time No Known Drug Allergies Allergy Verified 07/12/17 15:46 - Home Medications Home Medications: Ambulatory Orders Quinapril HCl [Accupril -] 40 mg PO DAILY 08/17/13 Risperidone [Risperdal] 50 mg IM UTDICT 08/17/13 Amlodipine Besylate [Norvasc -] 5 mg PO DAILY 10/30/14 Aspirin [ASA -] 81 mg PO DAILY 09/01/16 Cholecalciferol (Vitamin D3) [Vitamin D -] 1,000 unit PO DAILY 09/01/16 Propylene Glycol/Peg 400/Pf [Systane 0.3-0.4% Eye Drops] 1 each OP DAILY Salmeterol/Fluticasone [Advair 250Mcg/50Mcg -] 1 inh PO DAILY 09/01/16 Simvastatin [Zocor -] 20 mg PO HS 09/01/16 Travoprost [Travatan Z] 1 drop OP DAILY 09/01/16 Acetaminophen [Tylenol .Extra-Strength -] 1,000 mg PO Q6H PRN 09/02/16 Amlodipine Besylate [Norvasc -] 10 mg PO DAILY #30 tablet 09/04/16 Nicotine Patch [Nicoderm Patch -] 21 mg TD DAILY patch 09/04/16 Pantoprazole Sodium [Protonix -] 40 mg PO DAILY #30 tablet.ec 09/04/16 Unobtainable [Unobtainable] 07/12/17 Physical Exam-Neuro Vital Signs: Vital Signs Temperature 91.8 F L 07/13/17 07:00 Pulse Rate 52 L 07/13/17 07:00 Respiratory Rate 35 H 07/13/17 07:49 Blood Pressure 134/80 07/13/17 07:00 O2 Sat by Pulse Oximetry (%) 100 07/13/17 06:00 Constitutional: Yes: Pallor Labs: CBC, BMP 07/13/17 05:50 INR, PTT INR 1.14 (0.82-1.09) 07/13/17 05:50 - Neuro Exam Level Of Consciousness: Yes: Sedated (unresponsive, pupils 1mm, no dolls, no corneals, no spont movements or twitching, plantar down ) Imaging - Results Cat Scan: Report Reviewed, Image Reviewed Problem List - Problems (1) Anoxic-ischemic encephalopathy Code(s): G93.1 - ANOXIC BRAIN DAMAGE, NOT ELSEWHERE CLASSIFIED; I67.82 - CEREBRAL ISCHEMIA (2) Cardiac arrest Code(s): I46.9 - CARDIAC ARREST, CAUSE UNSPECIFIED (3) HTN (hypertension) Code(s): I10 - ESSENTIAL (PRIMARY) HYPERTENSION Assessment/Plan s/p cardiac arrest, with prolonged down time >15 min, resuscitated in field , though coded again in ER under hypothermic protocol and on sedation noted to have post anoxic seizure like activity CT -no acute changes given prolonged arrest time, mechanism of anoxia, post anoxic seizures poor prognosis will reassess if /when sedation can be tapered can start Keppra 750BID after vencuronium is Dc later today will follow Dr Dyer
[2017-07-13] MEDS: PROPOFOL 1,000,000 MCG/100 ML VIAL IVPB SCH ×2 (08:39→15:34)
[2017-07-13] MEDS: MIDAZOLAM 100 MG in SODIUM CHLORIDE 100 ML IVPB SCH (08:40)
[2017-07-13 09:40] LABS: ALBUMIN 2.4 g/dl (3.4-5.0); ANION GAP 11 (8-16); BLOOD UREA NITROGEN 43 mg/dL (7-18); CHLORIDE 105 mmol/L (98-107); CO2 20 mmol/L (21-32); GLUCOSE,RANDOM 220 mg/dL (74-106); MAGNESIUM 2.4 mg/dL (1.8-2.4); POTASSIUM 4.9 mmol/L (3.5-5.1); SODIUM 136 mmol/L (136-145)
--- NOTE | 2017-07-13 09:41 | PN ---
Progress Note, Physician History of Present Illness: SEDATED - Current Medication List Current Medications: Active Medications Acetaminophen (Tylenol Suppository -) 650 mg NC Q6H PRN PRN Reason: FEVER OR PAIN Albuterol Sulfate (Ventolin 0.083% Nebulizer Soln -) 1 amp NEB Q4H PRN PRN Reason: SHORT OF BREATH/WHEEZING Chlorhexidine Gluconate (Hibiclens For Decolonization -) 1 applic TP HS [facility] Last Admin: 07/12/17 23:00 Dose: 1 applic Heparin Sodium (Porcine) (Heparin -) 1,000 unit IVPUSH PRN PRN PRN Reason: Heparin Heparin Sodium (Porcine) (Heparin -) 5,000 unit IVPUSH PRN PRN PRN Reason: Heparin Sodium Chloride (Normal Saline -) 1,000 mls @ 125 mls/hr IV ASDIR [facility] Last Admin: 07/12/17 14:00 Dose: 125 mls/hr Propofol (Diprivan -) 1,000,000 mcg in 100 mls @ 2.177 mls/hr IVPB TITR [facility]; 5 MCG/KG/MIN PRN Reason: Protocol Last Admin: 07/13/17 08:39 Dose: 10 mcg/kg/min, 4.355 mls/hr Midazolam HCl 100 mg/ Sodium (Chloride) 100 mls @ 2 mls/hr IVPB TITR [facility]; 2 MG/ HR PRN Reason: Protocol Last Admin: 07/13/17 08:40 Dose: 8 mg/hr, 8 mls/hr HEPARIN SOD,PORK IN 0.45% NACL (Heparin-1/2ns 25,000 Units/500) 25,000 units in 500 mls @ 20 mls/hr IVPB TITR [facility]; 1,000 UNITS/HR PRN Reason: Protocol Last Titration: 07/13/17 04:00 Dose: 850 units/hr, 17 mls/hr Fentanyl 500 mcg/ Dextrose 100 mls @ 0 mls/hr IVPB TITR [facility]; 0 MCG/HR PRN Reason: Protocol Last Admin: 07/13/17 02:00 Dose: 20 mls/hr Vasopressin 50 units/ Sodium (Chloride) 100 mls @ 4.8 mls/hr IVPB TITR [facility]; 2.4 UNITS/HR PRN Reason: Protocol Last Admin: 07/12/17 23:00 Dose: 2.4 units/hr, 4.8 mls/hr Norepinephrine Bitartrate 8, (000 mcg/ Dextrose) 500 mls @ 18.75 mls/hr IV TITR [facility]; 5 MCG/MIN PRN Reason: Protocol Last Titration: 07/13/17 04:00 Dose: 3 mcg/min, 11.25 mls/hr Vecuronium [place] 50 mg/ (Dextrose) 250 mls @ 20.09 mls/hr IVPB TITR [facility]; 1 MCG/KG/MIN PRN Reason: Protocol Last Admin: 07/13/17 02:30 Dose: 1 mcg/kg/min, 20.09 mls/hr Vancomycin HCl 1,000 mg/ (Dextrose) 250 mls @ 250 mls/hr IVPB DAILY@0600 [facility] PRN Reason: Protocol Vancomycin HCl 1,250 mg/ (Dextrose) 250 mls @ 250 mls/hr IVPB DAILY@0600 [facility] PRN Reason: Protocol Lorazepam (Ativan Injection -) 2 mg IVPUSH Q4H PRN PRN Reason: ANXIETY Methylprednisolone Sodium Succinate (Solu-Medrol -) 60 mg IVPUSH QID [facility] Last Admin: 07/12/17 23:55 Dose: 60 mg Mupirocin (Bactroban Ointment (For Decolonization) -) 1 applic NS BID [facility] Stop: 07/17/17 21:59 Last Admin: 07/12/17 23:30 Dose: 1 applic Piperacillin/Tazobactam/Dextrose (Zosyn 3.375gm Ivpb (Premix)) 3.375 gm IVPB Q8H-IV [facility] Piperacillin/Tazobactam/Dextrose (Zosyn 3.375gm Ivpb (Premix)) 3.375 gm IVPB Q8H-IV [facility] Stop: 07/13/17 10:01 Last Admin: 07/13/17 02:30 Dose: 3.375 gm - Objective Vital Signs: Vital Signs Temperature 91.8 F L 07/13/17 07:00 Pulse Rate 56 L 07/13/17 09:00 Respiratory Rate 35 H 07/13/17 09:00 Blood Pressure 130/80 07/13/17 09:00 O2 Sat by Pulse Oximetry (%) 100 07/13/17 06:00 Cardiovascular: Yes: S1, S2 Respiratory: Yes: Mechanically Ventilated Gastrointestinal: Yes: Normal Bowel Sounds, Soft Neurological: Yes: Unresponsive Labs: CBC, BMP 07/13/17 05:50 INR, PTT INR 1.14 (0.82-1.09) 07/13/17 05:50 Problem List - Problems (1) Cardiac arrest Assessment/Plan: ICU SUPPORT PRESSORS FOLLOW LABS D/W SISTER--PROGNOSIS POOR SHE WILL D/W FAMILY Code(s): I46.9 - CARDIAC ARREST, CAUSE UNSPECIFIED (2) Acute respiratory failure Assessment/Plan: ON VENT MONITOR Code(s): J96.00 - ACUTE RESPIRATORY FAILURE, UNSP W HYPOXIA OR HYPERCAPNIA (3) COPD (chronic obstructive pulmonary disease) Assessment/Plan: ABOVE STEROIDS NEBS Code(s): J44.9 - CHRONIC OBSTRUCTIVE PULMONARY DISEASE, UNSPECIFIED (4) HTN (hypertension) Code(s): I10 - ESSENTIAL (PRIMARY) HYPERTENSION
[2017-07-13 09:44] LABS: BILIRUBIN,TOTAL 0.5 mg/dL (0.2-1.0); CREATININE 2.2 mg/dL (0.7-1.3); PHOSPHOROUS 5.9 mg/dL (2.5-4.9); SGOT/AST 285 U/L (15-37); SGPT/ALT 175 U/L (12-78); TOT PROT 4.6 g/dl (6.4-8.2)
[2017-07-13 09:57] LABS: ALK PHOS 46 U/L (45-117)
[2017-07-13 10:01] LABS: CALCIUM 6.4 mg/dL (8.5-10.1)
[2017-07-13] MEDS: methylPREDNISolone NA SUCC 40 MG/1 ML VIAL IVPUSH SCH ×5 (10:16→21:22)
[2017-07-13] MEDS: ALBUTEROL SO4 0.083% IH SOL 2.5 MG/3 ML VIAL.NEB. NEB SCH ×4 (11:05→22:40)
--- NOTE | 2017-07-13 14:15 | PN ---
Teaching Attending Note Name of Resident: Cullen Lopez ATTENDING PHYSICIAN STATEMENT I saw and evaluated the patient. I reviewed the resident's note and discussed the case with the resident. I agree with the resident's findings and plan as documented. SUBJECTIVE: Pt seen and examined in the ICU. Remains intubated, sedated. Paralyzed overnight for vent synchrony. Hypothermia protocol in progress. On levophed, vasopressin, propofol, versed and fentanyl gtts. OBJECTIVE: Last Vital Signs Temp Pulse Resp BP Pulse Ox 92.6 F L 56 L 20 118/85 100 07/13/17 13:00 07/13/17 13:00 07/13/17 13:00 07/13/17 13:00 07/13/17 08:39 Intake & Output 07/10/17 07/11/17 07/12/17 07/13/17 23:59 23:59 23:59 23:59 Intake Total 5431.4 2276.0 Output Total 450 150 Balance 4981.4 2126.0 Weight 66.996 kg 70.715 kg Gen: intubated, sedated Heart: RRR Lung: scattered rhonchi Abd: soft, nontender Ext: + edema CBC, BMP 07/13/17 05:50 07/13/17 05:50 Active Medications Acetaminophen (Tylenol Suppository -) 650 mg AR Q6H PRN PRN Reason: FEVER OR PAIN Albuterol Sulfate (Ventolin 0.083% Nebulizer Soln -) 1 amp NEB Q4HWA [facility] Chlorhexidine Gluconate (Hibiclens For Decolonization -) 1 applic TP HS [facility] Last Admin: 07/12/17 23:00 Dose: 1 applic Heparin Sodium (Porcine) (Heparin -) 1,000 unit IVPUSH PRN PRN PRN Reason: Heparin Heparin Sodium (Porcine) (Heparin -) 5,000 unit IVPUSH PRN PRN PRN Reason: Heparin Sodium Chloride (Normal Saline -) 1,000 mls @ 125 mls/hr IV ASDIR [facility] Last Admin: 07/12/17 14:00 Dose: 125 mls/hr Propofol (Diprivan -) 1,000,000 mcg in 100 mls @ 2.177 mls/hr IVPB TITR [facility]; 5 MCG/KG/MIN PRN Reason: Protocol Last Admin: 07/13/17 08:39 Dose: 10 mcg/kg/min, 4.355 mls/hr Midazolam HCl 100 mg/ Sodium (Chloride) 100 mls @ 2 mls/hr IVPB TITR [facility]; 2 MG/ HR PRN Reason: Protocol Last Titration: 07/13/17 09:00 Dose: 2 mg/hr, 2 mls/hr HEPARIN SOD,PORK IN 0.45% NACL (Heparin-1/2ns 25,000 Units/500) 25,000 units in 500 mls @ 20 mls/hr IVPB TITR [facility]; 1,000 UNITS/HR PRN Reason: Protocol Last Titration: 07/13/17 04:00 Dose: 850 units/hr, 17 mls/hr Fentanyl 500 mcg/ Dextrose 100 mls @ 0 mls/hr IVPB TITR [facility]; 0 MCG/HR PRN Reason: Protocol Last Admin: 07/13/17 02:00 Dose: 20 mls/hr Vasopressin 50 units/ Sodium (Chloride) 100 mls @ 4.8 mls/hr IVPB TITR [facility]; 2.4 UNITS/HR PRN Reason: Protocol Last Titration: 07/13/17 12:20 Dose: 0 units/hr, 0 mls/hr Norepinephrine Bitartrate 8, (000 mcg/ Dextrose) 500 mls @ 18.75 mls/hr IV TITR [facility]; 5 MCG/MIN PRN Reason: Protocol Last Titration: 07/13/17 12:21 Dose: 2 mcg/min, 7.5 mls/hr Vecuronium [place] 50 mg/ (Dextrose) 250 mls @ 20.09 mls/hr IVPB TITR [facility]USTIN; 1 MCG/KG/MIN PRN Reason: Protocol Last Admin: 07/13/17 02:30 Dose: 1 mcg/kg/min, 20.09 mls/hr Vancomycin HCl 1,000 mg/ (Dextrose) 250 mls @ 250 mls/hr IVPB DAILY@0600 [facility] PRN Reason: Protocol Vancomycin HCl 1,250 mg/ (Dextrose) 250 mls @ 250 mls/hr IVPB DAILY@0600 [facility] PRN Reason: Protocol Lorazepam (Ativan Injection -) 2 mg IVPUSH Q4H PRN PRN Reason: ANXIETY Methylprednisolone Sodium Succinate (Solu-Medrol -) 60 mg IVPUSH QID [facility] Last Admin: 07/13/17 10:17 Dose: 60 mg Mupirocin (Bactroban Ointment (For Decolonization) -) 1 applic NS BID [facility] Stop: 07/17/17 21:59 Last Admin: 07/12/17 23:30 Dose: 1 applic Pantoprazole Sodium (Protonix Iv) 40 mg IVPUSH DAILY [facility] Piperacillin/Tazobactam/Dextrose (Zosyn 3.375gm Ivpb (Premix)) 3.375 gm IVPB Q8H-IV [facility] ASSESSMENT AND PLAN: s/p Cardiopulmonary Arrest Shock - Septic vs Cardiogenic r/o Anoxic Encephalopathy Metabolic Acidosis r/o Pulmonary Embolism +Troponins r/o Myocardial Infarction Acute Kidney Injury Acute COPD Exacerbation - complete hypothermia protocol - continue empiric antibiotics - f/u cultures - d/c paralysis - check ABG once paralysis wears off - continue sedation for vent synchrony - titrate pressors to maintain MAP >65 - empiric medrol as pt with normal plateau pressures and high peak pressures - inhaled bronchodilators - continue empiric anticoagulation - LE dopplers - echocardiogram - lighten sedation in AM to assess mental status - spontaneous breathing trials if mental status improved - enteral feeds if unable to extubate - DVT/GI prophylaxis - continue ICU monitoring critical care time spent in reviewing chart, evaluating patient and formulating plan 40 min
[2017-07-13] MEDS: PANTOPRAZOLE SODIUM 40 MG VIAL IVPUSH SCH (15:03)
[2017-07-13] MEDS: MUPIROCIN 2% TOPICAL OINTMENT FOR DECOLONIZATION NS SCH ×2 (15:03→21:26)
--- NOTE | 2017-07-13 15:06 | PN ---
Progress Note, Physician Chief Complaint: Intubated and sedated History of Present Illness: 72 year old male with a pmhx of htn, psych disorder, and CAD s/p stents at [facility] in the past. Patient was crossing the stress to local diner/deli when had witnessed arrest/collapsed. CPR provided and EMS arrived. As per chart 15 minutes of resuscitation provided by ems and patient was intubated. Hypotension and started on pressors. On sedation for seizure like activity. - Current Medication List Current Medications: Active Medications Acetaminophen (Tylenol Suppository -) 650 mg NM Q6H PRN PRN Reason: FEVER OR PAIN Albuterol Sulfate (Ventolin 0.083% Nebulizer Soln -) 1 amp NEB Q4HWA [facility] Last Admin: 07/13/17 11:05 Dose: 1 amp Chlorhexidine Gluconate (Hibiclens For Decolonization -) 1 applic TP HS [facility] Last Admin: 07/12/17 23:00 Dose: 1 applic Heparin Sodium (Porcine) (Heparin -) 1,000 unit IVPUSH PRN PRN PRN Reason: Heparin Heparin Sodium (Porcine) (Heparin -) 5,000 unit IVPUSH PRN PRN PRN Reason: Heparin Sodium Chloride (Normal Saline -) 1,000 mls @ 125 mls/hr IV ASDIR [facility] Last Admin: 07/12/17 14:00 Dose: 125 mls/hr Propofol (Diprivan -) 1,000,000 mcg in 100 mls @ 2.177 mls/hr IVPB TITR [facility]; 5 MCG/KG/MIN PRN Reason: Protocol Last Admin: 07/13/17 08:39 Dose: 10 mcg/kg/min, 4.355 mls/hr Midazolam HCl 100 mg/ Sodium (Chloride) 100 mls @ 2 mls/hr IVPB TITR [facility]; 2 MG/ HR PRN Reason: Protocol Last Titration: 07/13/17 09:00 Dose: 2 mg/hr, 2 mls/hr HEPARIN SOD,P[place] IN 0.45% NACL (Heparin-1/2ns 25,000 Units/500) 25,000 units in 500 mls @ 20 mls/hr IVPB TITR [facility]; 1,000 UNITS/HR PRN Reason: Protocol Last Titration: 07/13/17 04:00 Dose: 850 units/hr, 17 mls/hr Fentanyl 500 mcg/ Dextrose 100 mls @ 0 mls/hr IVPB TITR [facility]; 0 MCG/HR PRN Reason: Protocol Last Admin: 07/13/17 02:00 Dose: 20 mls/hr Vasopressin 50 units/ Sodium (Chloride) 100 mls @ 4.8 mls/hr IVPB TITR [facility]; 2.4 UNITS/HR PRN Reason: Protocol Last Titration: 07/13/17 12:20 Dose: 0 units/hr, 0 mls/hr Norepinephrine Bitartrate 8, (000 mcg/ Dextrose) 500 mls @ 18.75 mls/hr IV TITR [facility]; 5 MCG/MIN PRN Reason: Protocol Last Titration: 07/13/17 12:21 Dose: 2 mcg/min, 7.5 mls/hr Vancomycin HCl 1,000 mg/ (Dextrose) 250 mls @ 250 mls/hr IVPB DAILY@0600 [facility] PRN Reason: Protocol Vancomycin HCl 1,250 mg/ (Dextrose) 250 mls @ 250 mls/hr IVPB DAILY@0600 [facility] PRN Reason: Protocol Levetiracetam (Keppra Injection -) 750 mg IVPB BID [facility] Lorazepam (Ativan Injection -) 2 mg IVPUSH Q4H PRN PRN Reason: ANXIETY Methylprednisolone Sodium Succinate (Solu-Medrol -) 60 mg IVPUSH QID [facility] Last Admin: 07/13/17 10:17 Dose: 60 mg Mupirocin (Bactroban Ointment (For Decolonization) -) 1 applic NS BID [facility] Stop: 07/17/17 21:59 Last Admin: 07/12/17 23:30 Dose: 1 applic Pantoprazole Sodium (Protonix Iv) 40 mg IVPUSH DAILY [facility] Piperacillin/Tazobactam/Dextrose (Zosyn 3.375gm Ivpb (Premix)) 3.375 gm IVPB Q8H-IV [facility] - Objective Vital Signs: Vital Signs Temperature 92.6 F L 07/13/17 13:00 Pulse Rate 56 L 07/13/17 13:00 Respiratory Rate 26 H 07/13/17 14:14 Blood Pressure 118/85 07/13/17 13:00 O2 Sat by Pulse Oximetry (%) 100 07/13/17 08:39 Constitutional: Yes: Other (intubated, sedated) Neck: Yes: Supple Cardiovascular: Yes: Regular Rate and Rhythm, S1, S2. No: JVD Respiratory: Yes: Mechanically Ventilated Edema: No Labs: CBC, BMP 07/13/17 05:50 07/13/17 05:50 INR, PTT INR 1.14 (0.82-1.09) 07/13/17 05:50 Problem List - Problems (1) Cardiac arrest Code(s): I46.9 - CARDIAC ARREST, CAUSE UNSPECIFIED Assessment/Plan 72 year old male with a pmhx of htn, psych disorder, and CAD s/p stents at [facility] in the past. Patient was crossing the stress to local diner/deli when had witnessed arrest/collapsed. CPR provided and EMS arrived. As per chart 15 minutes of resuscitation provided by ems and patient was intubated. Hypotension and started on pressors. On sedation for seizure like activity. CXR: clear CT head no acute m/s/b 1) Cardiac arrest unclear etiology. CT head no acute stroke. EKG sinus with pacs rbbb and no acute st elevations noted Plan for echocardiogram On levophed for hemodynamic support On heparin drip and adjusting dose as per heparin protocol checking ptt every 6 hours Will need to see patients brain activity and if recovers and not with anoxic brain injury than would plan for cardiac cath.
[2017-07-13 15:11] LABS: ARTERIAL BLOOD GAS BASE EXCESS -11.2 meq/l (-2-2); ARTERIAL BLOOD GAS PCO2 51.4 mmHg (35-45)
[2017-07-13 15:13] LABS: ALLENS TEST POSITIVE
[2017-07-13 15:14] LABS: ARTERIAL BLOOD GAS pH 7.16 (7.35-7.45)
[2017-07-13 15:31] LABS: HEMATOCRIT 40.4 % (35.4-49); HEMOGLOBIN 13.4 GM/dL (11.7-16.9); MCH 30.2 pg (25.7-33.7); MCHC 33.2 g/dl (32.0-35.9); MEAN CELL VOLUME 90.8 fl (80-96); MEAN PLT VOLUME 8.9 fl (7.5-11.1); PLATELET COUNT 138 K/MM3 (134-434); RBC 4.45 M/mm3 (4.00-5.60); RDW 15.1 % (11.9-15.9); WHITE BLOOD COUNT 12.4 K/mm3 (4.0-10.0)
[2017-07-13 16:02] LABS: ANION GAP 13 (8-16); BLOOD UREA NITROGEN 47 mg/dL (7-18); CHLORIDE 105 mmol/L (98-107); CO2 18 mmol/L (21-32); CREATININE 2.6 mg/dL (0.7-1.3); GLUCOSE,RANDOM 206 mg/dL (74-106); SODIUM 136 mmol/L (136-145)
[2017-07-13 16:43] LABS: CALCIUM 6.9 mg/dL (8.5-10.1)
[2017-07-13] MEDS: HEPARIN SOD,PORK IN 0.45% NACL 25,000 UNITS/500 ML INFUS.BAG IVPB SCH (19:30)
[2017-07-13] MEDS: NOREPINEPHRINE BITARTRATE 8,000 MCG in DEXTROSE 5%-WATER - 492 ML IV SCH (21:25)
[2017-07-13] MEDS: CHLORHEXIDINE GLUCONATE 4% CLEANSER FOR DECOLONIZATION TP SCH (21:27)
[2017-07-13] MEDS ORDERED: levETIRAcetam 500 MG/5 ML INJECTION VIAL IVPB SCH (22:00)
[2017-07-14] MEDS: ALBUTEROL SO4 0.083% IH SOL 2.5 MG/3 ML VIAL.NEB. NEB SCH ×5 (05:35→22:30)
[2017-07-14] MEDS ORDERED: VANCOMYCIN 1,250 MG in DEXTROSE 5%-WATER - 250 ML IVPB SCH (06:00)
[2017-07-14] MEDS ORDERED: VANCOMYCIN 1,000 MG in DEXTROSE 5%-WATER - 250 ML IVPB SCH (06:00)
[2017-07-14 06:44] LABS: BASO % 0.1 % (0-2.0); HEMATOCRIT 39.1 % (35.4-49); HEMOGLOBIN 13.2 GM/dL (11.7-16.9); LYMPH % 1.2 % (8-40); MCH 30.5 pg (25.7-33.7); MCHC 33.7 g/dl (32.0-35.9); MEAN CELL VOLUME 90.5 fl (80-96); MEAN PLT VOLUME 9.6 fl (7.5-11.1); MONO % 4.9 % (3.8-10.2); NEUT % 93.8 % (42.8-82.8); PLATELET COUNT 134 K/MM3 (134-434); RBC 4.32 M/mm3 (4.00-5.60); WHITE BLOOD COUNT 14.9 K/mm3 (4.0-10.0)
[2017-07-14 07:14] LABS: ALBUMIN 2.4 g/dl (3.4-5.0); ANION GAP 11 (8-16); BLOOD UREA NITROGEN 61 mg/dL (7-18); CHLORIDE 103 mmol/L (98-107); CO2 21 mmol/L (21-32); CREATININE 3.6 mg/dL (0.7-1.3); GLUCOSE,RANDOM 162 mg/dL (74-106); POTASSIUM 4.7 mmol/L (3.5-5.1); SGOT/AST 164 U/L (15-37); SGPT/ALT 154 U/L (12-78); SODIUM 135 mmol/L (136-145)
[2017-07-14 07:17] LABS: ALK PHOS 38 U/L (45-117); BILIRUBIN,TOTAL 0.4 mg/dL (0.2-1.0); TOT PROT 4.7 g/dl (6.4-8.2)
[2017-07-14 07:34] LABS: CALCIUM 6.5 mg/dL (8.5-10.1)
[2017-07-14 08:22] LABS: ARTERIAL BLOOD GAS BASE EXCESS -12.7 meq/l (-2-2); ARTERIAL BLOOD GAS PCO2 58.7 mmHg (35-45); ARTERIAL BLOOD GAS PO2 87.3 mmHg (70-100)
[2017-07-14 08:39] LABS: ALLENS TEST POSITIVE
[2017-07-14] MEDS ORDERED: PT OWN MED DRAWER 7, Y5N ONE ×3 (08:55→21:54)
--- NOTE | 2017-07-14 09:26 | PN ---
Progress Note, Physician History of Present Illness: SEDATED--now off - Current Medication List Current Medications: Active Medications Acetaminophen (Tylenol Suppository -) 650 mg OR Q6H PRN PRN Reason: FEVER OR PAIN Albuterol Sulfate (Ventolin 0.083% Nebulizer Soln -) 1 amp NEB Q4HWA [facility] Last Admin: 07/14/17 05:35 Dose: 1 amp Chlorhexidine Gluconate (Hibiclens For Decolonization -) 1 applic TP HS [facility] Last Admin: 07/13/17 21:27 Dose: 1 applic Heparin Sodium (Porcine) (Heparin -) 1,000 unit IVPUSH PRN PRN PRN Reason: Heparin Heparin Sodium (Porcine) (Heparin -) 5,000 unit IVPUSH PRN PRN PRN Reason: Heparin Propofol (Diprivan -) 1,000,000 mcg in 100 mls @ 2.177 mls/hr IVPB TITR [facility]; 5 MCG/KG/MIN PRN Reason: Protocol Last Admin: 07/13/17 15:34 Dose: 10 mcg/kg/min, 4.355 mls/hr HEPARIN SOD,P[place] 0.45% NACL (Heparin-1/2ns 25,000 Units/500) 25,000 units in 500 mls @ 20 mls/hr IVPB TITR [facility]; 1,000 UNITS/HR PRN Reason: Protocol Last Titration: 07/13/17 23:00 Dose: 400 units/hr, 8 mls/hr Norepinephrine Bitartrate 8, (000 mcg/ Dextrose) 500 mls @ 18.75 mls/hr IV TITR [facility]; 5 MCG/MIN PRN Reason: Protocol Last Titration: 07/14/17 08:00 Dose: 10 mcg/min, 37.5 mls/hr Vancomycin HCl 1,000 mg/ (Dextrose) 250 mls @ 250 mls/hr IVPB DAILY@0600 [facility] PRN Reason: Protocol Vancomycin HCl 1,250 mg/ (Dextrose) 250 mls @ 250 mls/hr IVPB DAILY@0600 [facility] PRN Reason: Protocol Levetiracetam (Keppra Injection -) 750 mg IVPB BID [facility] Last Admin: 07/13/17 23:34 Dose: 750 mg Lorazepam (Ativan Injection -) 2 mg IVPUSH Q4H PRN PRN Reason: ANXIETY Methylprednisolone Sodium Succinate (Solu-Medrol -) 60 mg IVPUSH QID [facility] Last Admin: 07/13/17 21:22 Dose: 60 mg Mupirocin (Bactroban Ointment (For Decolonization) -) 1 applic NS BID [facility] Stop: 07/17/17 21:59 Last Admin: 07/13/17 21:26 Dose: 1 applic Pantoprazole Sodium (Protonix Iv) 40 mg IVPUSH DAILY [facility] Last Admin: 07/13/17 15:03 Dose: 40 mg Piperacillin/Tazobactam/Dextrose (Zosyn 3.375gm Ivpb (Premix)) 3.375 gm IVPB Q8H-IV [facility] - Objective Vital Signs: Vital Signs Temperature 96.8 F L 07/14/17 08:00 Pulse Rate 82 07/14/17 08:00 Respiratory Rate 26 H 07/14/17 08:00 Blood Pressure 86/54 07/14/17 08:00 O2 Sat by Pulse Oximetry (%) 97 07/13/17 22:00 Cardiovascular: Yes: S1, S2 Respiratory: Yes: Mechanically Ventilated Gastrointestinal: Yes: Normal Bowel Sounds, Soft Edema: No Neurological: Yes: Unresponsive Labs: CBC, BMP 07/14/17 05:20 07/14/17 05:20 INR, PTT INR 1.14 (0.82-1.09) 07/13/17 05:50 Problem List - Problems (1) Cardiac arrest Assessment/Plan: ICU SUPPORT PRESSORS FOLLOW LABS D/W SISTER--PROGNOSIS POOR SHE WILL D/W FAMILY ECHO NL LV Code(s): I46.9 - CARDIAC ARREST, CAUSE UNSPECIFIED (2) Acute respiratory failure Assessment/Plan: ON VENT MONITOR Code(s): J96.00 - ACUTE RESPIRATORY FAILURE, UNSP W HYPOXIA OR HYPERCAPNIA (3) COPD (chronic obstructive pulmonary disease) Assessment/Plan: ABOVE STEROIDS NEBS Code(s): J44.9 - CHRONIC OBSTRUCTIVE PULMONARY DISEASE, UNSPECIFIED (4) HTN (hypertension) Code(s): I10 - ESSENTIAL (PRIMARY) HYPERTENSION (5) Anoxic-ischemic encephalopathy Assessment/Plan: DC SEDATION AND MONITOR Code(s): G93.1 - ANOXIC BRAIN DAMAGE, NOT ELSEWHERE CLASSIFIED; I67.82 - CEREBRAL ISCHEMIA
--- NOTE | 2017-07-14 09:35 | EKG ---
Test Reason : Blood Pressure : / mmHG Vent. Rate : 056 BPM Atrial Rate : 056 BPM P-R Int : 140 ms QRS Dur : 102 ms QT Int : 488 ms P-R-T Axes : 055 015 078 degrees QTc Int : 470 ms SINUS BRADYCARDIA LOW VOLTAGE QRS CANNOT RULE OUT INFERIOR INFARCT (CITED ON OR BEFORE 13-JUL-2017) ABNORMAL ECG Confirmed by MD Maria Ines, Pato ([id number]) on 07/14/2017 9:35:24 AM Referred By: DANA GONSALEZ Confirmed By:Pato Spann MD
[2017-07-14] MEDS ORDERED: levETIRAcetam 500 MG/5 ML INJECTION VIAL IVPB SCH (09:49)
--- NOTE | 2017-07-14 09:56 | PN ---
Physical Exam: SUBJECTIVE: Patient off of all sedation yesterday evening except for propofol. Twitching vs. seizure activity exacerbated off of sedation and paralytics. Remains on levophed. OBJECTIVE: Vital Signs Period Temp Pulse Resp BP Sys/Mock Pulse Ox Last 24 Hr 92 F-96.8 F 56-83 20-31 80-122/54-91 40-100 GENERAL: Off sedation and exhibiting rhytmic facial twitching HEAD: Normal with no signs of trauma. EYES: PERRL- constricted but reactive. ENT: Ears normal, nares patent, intubated LUNGS: Mechanical breath sounds. Breathing at vent rate. HEART: Regular rate and rhythm, S1, S2 without murmur, rub or gallop. ABDOMEN: Soft, nontender, nondistended, normoactive bowel sounds, no guarding, no rebound, no hepatosplenomegaly, no masses. EXTREMITIES: cool extremities, non mottled skin, no edema NEUROLOGICAL: Just removed final sedative, and no longer paralyzed. SKIN: Warm centrally but cool periphery, dry, normal turgor, no rashes or lesions noted Laboratory Results - last 24 hr 07/13/17 07/13/17 07/13/17 05:50 10:00 14:50 WBC RBC Hgb Hct MCV MCH MCHC RDW Plt Count MPV Neutrophils % Lymphocytes % Monocytes % Eosinophils % Basophils % PTT (Actin FS) 258.0 H Puncture Site Left radial ABG pH 7.16 L* ABG pCO2 at Pt Temp 51.4 H D ABG pO2 at Pt Temp 130.0 H D ABG HCO3 17.5 L ABG O2 Sat (Measured) 98.0 ABG O2 Content 18.4 ABG Base Excess -11.2 L* Anthony Test Positive O2 Delivery Device Vol/ac Oxygen Flow Rate 40 Vent Mode Vol/ac Vent Rate 26 Mechanical Rate Yes PEEP 5.0 Pressure Support Vent 400 Sodium 136 Potassium 4.9 Chloride 105 Carbon Dioxide 20 L Anion Gap 11 BUN 43 H Creatinine 2.2 H Creat Clearance w eGFR 29.65 Random Glucose 220 H D Calcium 6.4 L* Phosphorus 5.9 H D Magnesium 2.4 Total Bilirubin 0.5 D AST 285 H D ALT 175 H Alkaline Phosphatase 46 Creatine Kinase 509 H Creatine Kinase Index 16.7 H* CK-MB (CK-2) 85.421 H Troponin I 1.44 H* Total Protein 4.6 L Albumin 2.4 L Vancomycin Pre-Dose 07/13/17 07/13/17 07/13/17 15:00 15:00 20:45 WBC 12.4 H RBC 4.45 Hgb 13.4 Hct 40.4 MCV 90.8 MCH 30.2 MCHC 33.2 RDW 15.1 Plt Count 138 MPV 8.9 Neutrophils % Lymphocytes % Monocytes % Eosinophils % Basophils % PTT (Actin FS) 140.1 H D Puncture Site ABG pH ABG pCO2 at Pt Temp ABG pO2 at Pt Temp ABG HCO3 ABG O2 Sat (Measured) ABG O2 Content ABG Base Excess Anthony Test O2 Delivery Device Oxygen Flow Rate Vent Mode Vent Rate Mechanical Rate PEEP Pressure Support Vent Sodium 136 Potassium 4.0 Chloride 105 Carbon Dioxide 18 L Anion Gap 13 BUN 47 H Creatinine 2.6 H Creat Clearance w eGFR Random Glucose 206 H Calcium 6.9 L* Phosphorus Magnesium Total Bilirubin AST ALT Alkaline Phosphatase Creatine Kinase Creatine Kinase Index CK-MB (CK-2) Troponin I Total Protein Albumin Vancomycin Pre-Dose 07/14/17 07/14/17 07/14/17 05:20 05:20 05:20 WBC 14.9 H RBC 4.32 Hgb 13.2 Hct 39.1 MCV 90.5 MCH 30.5 MCHC 33.7 RDW 15.0 Plt Count 134 MPV 9.6 Neutrophils % 93.8 H Lymphocytes % 1.2 L D Monocytes % 4.9 Eosinophils % 0.0 D Basophils % 0.1 PTT (Actin FS) 64.8 H D Puncture Site ABG pH ABG pCO2 at Pt Temp ABG pO2 at Pt Temp ABG HCO3 ABG O2 Sat (Measured) ABG O2 Content ABG Base Excess Anthony Test O2 Delivery Device Oxygen Flow Rate Vent Mode Vent Rate Mechanical Rate PEEP Pressure Support Vent Sodium 135 L Potassium 4.7 Chloride 103 Carbon Dioxide 21 Anion Gap 11 BUN 61 H D Creatinine 3.6 H D Creat Clearance w eGFR 16.80 Random Glucose 162 H D Calcium 6.5 L* Phosphorus Magnesium Total Bilirubin 0.4 AST 164 H D ALT 154 H Alkaline Phosphatase 38 L Creatine Kinase Creatine Kinase Index CK-MB (CK-2) Troponin I Total Protein 4.7 L Albumin 2.4 L Vancomycin Pre-Dose 07/14/17 07/14/17 06:00 07:35 WBC RBC Hgb Hct MCV MCH MCHC RDW Plt Count MPV Neutrophils % Lymphocytes % Monocytes % Eosinophils % Basophils % PTT (Actin FS) Puncture Site Arterial line ABG pH 7.10 L* ABG pCO2 at Pt Temp 58.7 H ABG pO2 at Pt Temp 87.3 D ABG HCO3 17.4 L ABG O2 Sat (Measured) 95.0 ABG O2 Content 17.3 ABG Base Excess -12.7 L* Anthony Test Positive O2 Delivery Device Mech vent Oxygen Flow Rate 40 Vent Mode A/c Vent Rate 26 Mechanical Rate Yes PEEP 5.0 Pressure Support Vent 400 tidal volume Sodium Potassium Chloride Carbon Dioxide Anion Gap BUN Creatinine Creat Clearance w eGFR Random Glucose Calcium Phosphorus Magnesium Total Bilirubin AST ALT Alkaline Phosphatase Creatine Kinase Creatine Kinase Index CK-MB (CK-2) Troponin I Total Protein Albumin Vancomycin Pre-Dose 10.601 H Active Medications Generic Name Dose Route Start Last Admin Trade Name Freq PRN Reason Stop Dose Admin Acetaminophen 650 mg 07/12/17 13:13 Tylenol Suppository - NE Q6H PRN FEVER OR PAIN Albuterol Sulfate 1 amp 07/13/17 10:45 07/14/17 05:35 Ventolin 0.083% Nebulizer Soln - NEB 1 amp Q4HWA DUSTIN Administration Chlorhexidine Gluconate 1 applic 07/12/17 22:00 07/13/17 21:27 Hibiclens For Decolonization - TP 1 applic HS DUSTIN Administration Heparin Sodium (Porcine) 1,000 unit 07/12/17 19:16 Heparin - IVPUSH PRN PRN Heparin Heparin Sodium (Porcine) 5,000 unit 07/12/17 19:16 Heparin - IVPUSH PRN PRN Heparin Propofol 1,000,000 mcg in 100 mls @ 2.177 mls/hr 07/12/17 14:00 07/13/17 15: 34 Diprivan - IVPB 10 mcg/kg/min TITR DUSTIN 4.355 mls/hr Protocol Administration 5 MCG/KG/MIN HEPARIN SOD,PORK IN 0.45% NACL 25,000 units in 500 mls @ 20 mls/hr 07/12/17 19 :30 07/13/17 23:00 Heparin-1/2ns 25,000 Units/500 IVPB 400 units/hr TITR DUSTIN 8 mls/hr Protocol Titration 1,000 UNITS/HR Norepinephrine Bitartrate 8, 500 mls @ 18.75 mls/hr 07/12/17 21:30 07/14/17 08:00 000 mcg/ Dextrose IV 10 mcg/min TITR DUSTIN 37.5 mls/hr Protocol Titration 5 MCG/MIN Vancomycin HCl 1,000 mg/ 250 mls @ 250 mls/hr 07/14/17 06:00 Dextrose IVPB DAILY@0600 DUSTIN Protocol Vancomycin HCl 1,250 mg/ 250 mls @ 250 mls/hr 07/14/17 06:00 Dextrose IVPB DAILY@0600 [facility] Protocol Levetiracetam 1,000 mg 07/14/17 09:49 Keppra Injection - IVPB BID DUSTIN Lorazepam 2 mg 07/13/17 02:57 Ativan Injection - IVPUSH Q4H PRN ANXIETY Methylprednisolone Sodium Succinate 60 mg 07/12/17 14:00 07/13/17 21:22 Solu-Medrol - IVPUSH 60 mg QID DUSTIN Administration Mupirocin 1 applic 07/12/17 22:00 07/13/17 21:26 Bactroban Ointment (For Decolonization) - NS 07/17/17 21:59 1 applic BID DUSTIN Administration Pantoprazole Sodium 40 mg 07/13/17 11:00 07/13/17 15:03 Protonix Iv IVPUSH 40 mg DAILY [facility] Administration Piperacillin/Tazobactam/Dextrose 3.375 gm 07/13/17 02:00 Zosyn 3.375gm Ivpb (Premix) IVPB Q8H-IV DUSTIN Valproate Sodium 500 mg 07/14/17 10:00 Depacon Injection - IVPB BID [facility] ASSESSMENT/PLAN: 72 M with PMH of CO, CAD s/p stenting x2, HTN, and bipolar disorder presenting s /p cardiac arrest with ROSC after 15 minutes, intubated in the field and received 4 rounds of Epinephrine, 1 amp of Bicarb, and 1 amp of calcium gluconate and found to be 91.1 on rectal temp. Currently intubated off sedatives/ paralytics but still requiring levophed. Neuro: #AMS: Patient is sedated and paralyzed currently so difficult to assess mental status - Off of paralytics - Fentanyl removed at approximately 9:30 AM #Seizure activity vs. myclonus: - Dr. Dyer feels strongly that this is seizure activity - Would like to increase Keppra to 1G BID and add Depakote 500 BID - If Keppra and Depakote do not stop twitching @13:00 then can add versed at 2 per hour and titrate until seizure activity resolved CV: # Hypotension: Likely due to septic vs. cardiogenic shock. Right fem shiley removed. - Off vaso - titrate levo - fluid boluses PRN # Cardiac arrest: Unclear etiology but less likely acute CO. We have high suspicion for PE given new RBBB pattern with elevated troponins - Tropnonin peaked at 1.68 - Continue heparin drip until the end of today which would treat both NSTEMI and PE - Echo showing mild to mod Mitral valve thickening with trace regurg. Otherwise grossly normal. No sign of right heart strain. - No DVT on dopplers - Can consider CTA if kidney function improves, although less likely PE given above #lactic acidosis: resolved Pulm: #Hypoxic respiratory failure/ Hypercapnic respiratory failure: secondary to arrest likely but patient has known COPD and ABG demonstrated PCO2 in 80s in admission - Current ABGs evidencing respiratory acidosis at pH 7.10 but close enough to permissive level of 7.15 - repeat ABG tomorrow morning - Initiating breaths at mid teens but needs to be in 20s to maintain metabolic acidosis - Continue ARDS net with plat <30 and TV @ 6-8 MG/KG as goal (396-528 mL). - Continue steroids - permissive hypercapnia and acidosis (goal ~>7.15) FEN: - replete lytes PRN PPX: - Heparin GTT can transition to 5K subcutaneous once drip off - Protonix Dispo: - Vented and on pressers. Will need both to resolve with consciousness in order to transfer. - Bleak outlook and discussed with family per primary team. GOC will be reassessed in 24 hours Visit type - Emergency Visit Emergency Visit: No - New Patient This patient is new to me today: No - Critical Care Critical Care patient: Yes Total Critical Care Time (in minutes): 35 Critical Care Statement: The care of this patient involved high complexity decision making to prevent further life threatening deterioration of the patient 's condition and/or to evaluate & treat vital organ system(s) failure or risk of failure. - Discharge Referral Referred to [facility] Med P.C.: No
[2017-07-14] MEDS: PANTOPRAZOLE SODIUM 40 MG VIAL IVPUSH SCH (10:00)
[2017-07-14] MEDS: methylPREDNISolone NA SUCC 40 MG/1 ML VIAL IVPUSH SCH ×4 (10:00→22:30)
[2017-07-14] MEDS ORDERED: VALPROATE SODIUM 500 MG/5 ML VIAL IVPB SCH (10:00)
[2017-07-14] MEDS: MUPIROCIN 2% TOPICAL OINTMENT FOR DECOLONIZATION NS SCH ×2 (10:00→22:29)
[2017-07-14] MEDS ORDERED: VALPROATE SODIUM INJECTION 500 MG in DEXTROSE 5%-WATER - 100 ML IV SCH (10:30)
[2017-07-14] MEDS: LEVETIRACETAM INJECTION 500 MG in DEXTROSE 5%-WATER - 100 ML IVPB SCH ×2 (10:30→22:27)
[2017-07-14] MEDS ORDERED: VALPROATE SODIUM INJECTION 500 MG in DEXTROSE 5%-WATER - 100 ML IVPB SCH (10:32)
--- NOTE | 2017-07-14 10:41 | PN ---
Progress Note (short form) - Note Progress Note: 72 year old male with a pmhx of htn, psych disorder, and CAD s/p stents at [facility] in the past. Patient was crossing the stress to local diner/deli when had witnessed arrest/collapsed. CPR provided and EMS arrived. As per chart 15 minutes of resuscitation provided by ems and patient was intubated. Hypotension and started on pressors. On sedation for seizure like activity - in field, noted to have myoclonic activity overnight--on propofol and versed and fentanyl. pt unresponsive. on hypothermic protocol. CT HD : mild forntal white matter changes. elevated LFTS, trop/CPK. FU : continue to have facial frontalis twitching --suspcious for seziures sedation weaned off-unresponsive - History Source History Provided By: Medical Record Limitations to Obtaining History: Unresponsive - Past Medical History [employer]NAGER: Yes: CVA Cardio/Vascular: Yes: CAD, HTN Pulmonary: Yes: COPD Gastrointestinal: Yes: GERD Psych: Yes: Bipolar - Past Surgical History Past Surgical History: Yes: Stent - Alcohol/Substance Use Hx Alcohol Use: No - Smoking History Smoking history: Unknown if ever smoked Have you smoked in the past 12 months: Yes Aproximately how many cigarettes per day: 20 Home Medications - Allergies Allergies/Adverse Reactions: Allergies Allergy/AdvReac Type Severity Reaction Status Date / Time No Known Drug Allergies Allergy Verified 07/12/17 15:46 - Home Medications Home Medications: Ambulatory Orders Quinapril HCl [Accupril -] 40 mg PO DAILY 08/17/13 Risperidone [Risperdal] 50 mg IM UTDICT 08/17/13 Amlodipine Besylate [Norvasc -] 5 mg PO DAILY 10/30/14 Aspirin [ASA -] 81 mg PO DAILY 09/01/16 Cholecalciferol (Vitamin D3) [Vitamin D -] 1,000 unit PO DAILY 09/01/16 Propylene Glycol/Peg 400/Pf [Systane 0.3-0.4% Eye Drops] 1 each OP DAILY Salmeterol/Fluticasone [Advair 250Mcg/50Mcg -] 1 inh PO DAILY 09/01/16 Simvastatin [Zocor -] 20 mg PO HS 09/01/16 Travoprost [Travatan Z] 1 drop OP DAILY 02/21/17 Acetaminophen [Tylenol .Extra-Strength -] 1,000 mg PO Q6H PRN 09/02/16 Amlodipine Besylate [Norvasc -] 10 mg PO DAILY #30 tablet 09/04/16 Nicotine Patch [Nicoderm Patch -] 21 mg TD DAILY patch 09/04/16 Pantoprazole Sodium [Protonix -] 40 mg PO DAILY #30 tablet.ec 09/04/16 Unobtainable [Unobtainable] 07/12/17 Physical Exam-Neuro Vital Signs: Vital Signs Temperature 96.8 F L 07/14/17 10:00 Pulse Rate 78 07/14/17 10:00 Respiratory Rate 26 H 07/14/17 10:00 Blood Pressure 96/70 07/14/17 10:00 O2 Sat by Pulse Oximetry (%) 96 07/14/17 09:00 Constitutional: Yes: Pallor Labs: CBCD WBC 14.9 K/mm3 (4.0-10.0) H 07/14/17 05:20 RBC 4.32 M/mm3 (4.00-5.60) 07/14/17 05:20 Hgb 13.2 GM/dL (11.7-16.9) 07/14/17 05:20 Hct 39.1 % (35.4-49) 07/14/17 05:20 MCV 90.5 fl (80-96) 07/14/17 05:20 MCHC 33.7 g/dl (32.0-35.9) 07/14/17 05:20 RDW 15.0 % (11.9-15.9) 07/14/17 05:20 Plt Count 134 K/MM3 (134-434) 07/14/17 05:20 MPV 9.6 fl (7.5-11.1) 07/14/17 05:20 CMP Sodium 135 mmol/L (136-145) L 07/14/17 05:20 Potassium 4.7 mmol/L (3.5-5.1) 07/14/17 05:20 Chloride 103 mmol/L (98-107) 07/14/17 05:20 Carbon Dioxide 21 mmol/L (21-32) 07/14/17 05:20 Anion Gap 11 (8-16) 07/14/17 05:20 BUN 61 mg/dL (7-18) H D 07/14/17 05:20 Creatinine 3.6 mg/dL (0.7-1.3) H D 07/14/17 05:20 Creat Clearance w eGFR 16.80 (>60) 07/14/17 05:20 Calcium 6.5 mg/dL (8.5-10.1) L* 07/14/17 05:20 Total Bilirubin 0.4 mg/dL (0.2-1.0) 07/14/17 05:20 AST 164 U/L (15-37) H D 07/14/17 05:20 ALT 154 U/L (12-78) H 07/14/17 05:20 Alkaline Phosphatase 38 U/L (45-117) L 07/14/17 05:20 Total Protein 4.7 g/dl (6.4-8.2) L 07/14/17 05:20 Albumin 2.4 g/dl (3.4-5.0) L 07/14/17 05:20 - Neuro Exam Level Of Consciousness: Yes: Sedated (unresponsive, pupils 1mm, no dolls, no corneals, no spont movements , r ight forntal > left frontal twitching and eye blink, plantar down ) Imaging - Results Cat Scan: Report Reviewed, Image Reviewed Problem List - Problems (1) Anoxic-ischemic encephalopathy Code(s): G93.1 - ANOXIC BRAIN DAMAGE, NOT ELSEWHERE CLASSIFIED; I67.82 - CEREBRAL ISCHEMIA (2) Cardiac arrest Code(s): I46.9 - CARDIAC ARREST, CAUSE UNSPECIFIED (3) HTN (hypertension) Code(s): I10 - ESSENTIAL (PRIMARY) HYPERTENSION Assessment/Plan s/p cardiac arrest, with prolonged down time >15 min, resuscitated in field , though coded again in ER s/p hypothermic protocol, now off sedation noted to have post anoxic seizure like activity CT -no acute changes given prolonged arrest time, mechanism of anoxia, post anoxic seizures very poor prognosis, evidence of multiorgan failure inc keppra 1000bid and add on depkaote 500BID --watch LFTS -- if continues to have clinical twitching after two hours-- restart midazolam sedation and tritarte till no more seziure like activity ; check EEG spoke to family Dr Dyer Problem List - Problems (1) Anoxic-ischemic encephalopathy Code(s): G93.1 - ANOXIC BRAIN DAMAGE, NOT ELSEWHERE CLASSIFIED; I67.82 - CEREBRAL ISCHEMIA (2) Cardiac arrest Code(s): I46.9 - CARDIAC ARREST, CAUSE UNSPECIFIED (3) HTN (hypertension) Code(s): I10 - ESSENTIAL (PRIMARY) HYPERTENSION
[2017-07-14 10:48] LABS: MAGNESIUM 2.4 mg/dL (1.8-2.4); PHOSPHOROUS 8.2 mg/dL (2.5-4.9)
[2017-07-14] MEDS: VALPROATE SODIUM IVPB SCH ×2 (12:35→22:29)
[2017-07-14] MEDS: DEXTROSE 5% IVPB SCH ×2 (12:35→22:29)
[2017-07-14] MEDS: WATER IVPB SCH ×2 (12:35→22:29)
--- NOTE | 2017-07-14 12:35 | PN ---
Teaching Attending Note Name of Resident: Cullen Lopez ATTENDING PHYSICIAN STATEMENT I saw and evaluated the patient. I reviewed the resident's note and discussed the case with the resident. I agree with the resident's findings and plan as documented. SUBJECTIVE: Pt seen and examined in the ICU. Remains intubated, unresponsive off sedation. Seizure like/myoclonic jerk activity noted. Remains on levophed gtt. Family at bedside. OBJECTIVE: Last Vital Signs Temp Pulse Resp BP Pulse Ox 96.8 F L 78 26 H 103/56 92 L 07/14/17 10:00 07/14/17 11:02 07/14/17 12:15 07/14/17 11:02 07/14/17 10:15 Intake & Output 07/11/17 07/12/17 07/13/17 07/14/17 23:59 23:59 23:59 23:59 Intake Total 5431.4 2948.2 204 Output Total 450 400 50 Balance 4981.4 2548.2 154 Weight 66.996 kg 70.715 kg 70.443 kg Gen: intubated, unresponsive Heart: RRR Lung: bilateral rhonchi, wheezes Abd: soft, nontender Ext: + edema CBC, BMP 07/14/17 05:20 07/14/17 05:20 Active Medications Acetaminophen (Tylenol Suppository -) 650 mg SD Q6H PRN PRN Reason: FEVER OR PAIN Albuterol Sulfate (Ventolin 0.083% Nebulizer Soln -) 1 amp NEB Q4HWA [facility] Last Admin: 07/14/17 10:15 Dose: 1 amp Chlorhexidine Gluconate (Hibiclens For Decolonization -) 1 applic TP HS [facility] Last Admin: 07/13/17 21:27 Dose: 1 applic Heparin Sodium (Porcine) (Heparin -) 1,000 unit IVPUSH PRN PRN PRN Reason: Heparin Heparin Sodium (Porcine) (Heparin -) 5,000 unit IVPUSH PRN PRN PRN Reason: Heparin Propofol (Diprivan -) 1,000,000 mcg in 100 mls @ 2.177 mls/hr IVPB TITR DUSITN; 5 MCG/KG/MIN PRN Reason: Protocol Last Admin: 07/13/17 15:34 Dose: 10 mcg/kg/min, 4.355 mls/hr HEPARIN SOD,PORK IN 0.45% NACL (Heparin-1/2ns 25,000 Units/500) 25,000 units in 500 mls @ 20 mls/hr IVPB TITR DUSTIN; 1,000 UNITS/HR PRN Reason: Protocol Last Titration: 07/13/17 23:00 Dose: 400 units/hr, 8 mls/hr Norepinephrine Bitartrate 8, (000 mcg/ Dextrose) 500 mls @ 18.75 mls/hr IV TITR DUSTIN; 5 MCG/MIN PRN Reason: Protocol Last Titration: 07/14/17 08:00 Dose: 10 mcg/min, 37.5 mls/hr Vancomycin HCl 1,000 mg/ (Dextrose) 250 mls @ 250 mls/hr IVPB DAILY@0600 [facility] PRN Reason: Protocol Vancomycin HCl 1,250 mg/ (Dextrose) 250 mls @ 250 mls/hr IVPB DAILY@0600 DUSTIN PRN Reason: Protocol Levetiracetam 500 mg/ Dextrose 105 mls @ 420 mls/hr IVPB BID DUSTIN Valproate Sodium 500 mg/ (Dextrose) 55 mls @ 55 mls/hr IVPB BID DUSTIN Lorazepam (Ativan Injection -) 2 mg IVPUSH Q4H PRN PRN Reason: ANXIETY Methylprednisolone Sodium Succinate (Solu-Medrol -) 60 mg IVPUSH QID [facility] Last Admin: 07/14/17 10:00 Dose: 60 mg Mupirocin (Bactroban Ointment (For Decolonization) -) 1 applic NS BID [facility] Stop: 07/17/17 21:59 Last Admin: 07/14/17 10:00 Dose: 1 applic Pantoprazole Sodium (Protonix Iv) 40 mg IVPUSH DAILY [facility] Last Admin: 07/14/17 10:00 Dose: 40 mg Piperacillin/Tazobactam/Dextrose (Zosyn 3.375gm Ivpb (Premix)) 3.375 gm IVPB Q8H-IV DUSTIN ASSESSMENT AND PLAN: s/p Cardiopulmonary Arrest Shock - Septic vs Cardiogenic r/o Anoxic Encephalopathy Metabolic Acidosis r/o Pulmonary Embolism +Troponins r/o Myocardial Infarction Acute Kidney Injury Acute COPD Exacerbation - s/p hypothermia protocol - continue empiric antibiotics - f/u cultures - titrate pressors to maintain MAP >65 - empiric medrol as pt with normal plateau pressures and high peak pressures - inhaled bronchodilators - allow permissive hypercapnea - continue empiric anticoagulation - minimize sedation to assess mental status - spontaneous breathing trials if mental status improved - enteral feeds if unable to extubate - DVT/GI prophylaxis - continue ICU monitoring - poor overall prognosis, discussed with family at bedside critical care time spent in reviewing chart, evaluating patient and formulating plan 40 min
[2017-07-14] MEDS ORDERED: VANCOMYCIN 1,000 MG in DEXTROSE 5%-WATER - 250 ML IVPB ONE (12:36)
[2017-07-14] MEDS ORDERED: PIPERACILLIN/TAZOB 2.25 GM/50 ML PREMIX BAG IVPB SCH (12:45)
[2017-07-14] MEDS: HEPARIN SOD,PORK IN 0.45% NACL 25,000 UNITS/500 ML INFUS.BAG IVPB SCH ×2 (13:41→21:22)
[2017-07-14] MEDS: NOREPINEPHRINE BITARTRATE 8,000 MCG in DEXTROSE 5%-WATER - 492 ML IV SCH ×2 (13:42→22:28)
[2017-07-14] MEDS: PIPERACILLIN/TAZOB 2.25 GM 2.25 GM/50 ML BAG IVPB SCH ×2 (14:51→21:00)
--- NOTE | 2017-07-14 15:29 | PN ---
Progress Note, Physician Chief Complaint: Off hypothermia protocol and sedation with no mental status History of Present Illness: 72 year old male with a pmhx of htn, psych disorder, and CAD s/p stents at [facility] in the past. Patient was crossing the stress to local diner/deli when had witnessed arrest/collapsed. CPR provided and EMS arrived. As per chart 15 minutes of resuscitation provided by ems and patient was intubated. Hypotension and started on pressors. On sedation for seizure like activity. - Current Medication List Current Medications: Active Medications Acetaminophen (Tylenol Suppository -) 650 mg [place] Q6H PRN PRN Reason: FEVER OR PAIN Albuterol Sulfate (Ventolin 0.083% Nebulizer Soln -) 1 amp NEB Q4HWA [facility] Last Admin: 07/14/17 14:30 Dose: 1 amp Chlorhexidine Gluconate (Hibiclens For Decolonization -) 1 applic TP HS [facility]USTIN Last Admin: 07/13/17 21:27 Dose: 1 applic Heparin Sodium (Porcine) (Heparin -) 1,000 unit IVPUSH PRN PRN PRN Reason: Heparin Heparin Sodium (Porcine) (Heparin -) 5,000 unit IVPUSH PRN PRN PRN Reason: Heparin Propofol (Diprivan -) 1,000,000 mcg in 100 mls @ 2.177 mls/hr IVPB TITR DUSTIN; 5 MCG/KG/MIN PRN Reason: Protocol Last Titration: 07/14/17 10:30 Dose: 0 mcg/kg/min, 0 mls/hr HEPARIN SOD,PORK IN 0.45% NACL (Heparin-1/2ns 25,000 Units/500) 25,000 units in 500 mls @ 20 mls/hr IVPB TITR DUSTIN; 1,000 UNITS/HR PRN Reason: Protocol Last Admin: 07/14/17 13:41 Dose: 400 units/hr, 8 mls/hr Norepinephrine Bitartrate 8, (000 mcg/ Dextrose) 500 mls @ 18.75 mls/hr IV TITR DUSTIN; 5 MCG/MIN PRN Reason: Protocol Last Admin: 07/14/17 13:42 Dose: 15 mcg/min, 56.25 mls/hr Levetiracetam 500 mg/ Dextrose 105 mls @ 420 mls/hr IVPB BID [facility]UST[facility] Valproate Sodium 500 mg/ (Dextrose) 55 mls @ 55 mls/hr IVPB BID [facility] Last Admin: 07/14/17 12:35 Dose: 55 mls/hr Piperacillin/Tazobactam/Dextrose (Zosyn 2.25gm Ivpb (Premix)) 2.25 gm in 50 mls @ 100 mls/hr IVPB Q6H-IV [facility] Last Admin: 07/14/17 14:51 Dose: 100 mls/hr Lorazepam (Ativan Injection -) 2 mg IVPUSH Q4H PRN PRN Reason: ANXIETY Methylprednisolone Sodium Succinate (Solu-Medrol -) 60 mg IVPUSH QID [facility] Last Admin: 07/14/17 13:49 Dose: 60 mg Mupirocin (Bactroban Ointment (For Decolonization) -) 1 applic NS BID [facility] Stop: 07/17/17 21:59 Last Admin: 07/14/17 10:00 Dose: 1 applic Pantoprazole Sodium (Protonix Iv) 40 mg IVPUSH DAILY [facility] Last Admin: 07/14/17 10:00 Dose: 40 mg - Objective Vital Signs: Vital Signs Temperature 97.6 F 07/14/17 15:00 Pulse Rate 88 07/14/17 15:00 Respiratory Rate 26 H 07/14/17 15:00 Blood Pressure 99/59 07/14/17 15:00 O2 Sat by Pulse Oximetry (%) 92 L 07/14/17 10:15 Cardiovascular: Yes: Regular Rate and Rhythm, S1, S2. No: JVD Respiratory: Yes: Mechanically Ventilated Gastrointestinal: Yes: Soft Edema: No Labs: CBC, BMP 07/14/17 05:20 07/14/17 05:20 INR, PTT INR 1.14 (0.82-1.09) 07/13/17 05:50 Problem List - Problems (1) Cardiac arrest Code(s): I46.9 - CARDIAC ARREST, CAUSE UNSPECIFIED Assessment/Plan 72 year old male with a pmhx of htn, psych disorder, and CAD s/p stents at [facility] in the past. Patient was crossing the stress to local diner/deli when had witnessed arrest/collapsed. CPR provided and EMS arrived. As per chart 15 minutes of resuscitation provided by ems and patient was intubated. Hypotension and started on pressors. On sedation for seizure like activity. CXR: clear CT head no acute m/s/b 1) Cardiac arrest unclear etiology. CT head no acute stroke. EKG sinus with pacs rbbb and no acute st elevations noted Echocardiogram with normal LV systolic function On levophed for hemodynamic support Poor prognosis. If recoovers brain activity than would consider cardiac cath but highly unlikely
[2017-07-14] MEDS: PROPOFOL 1,000,000 MCG/100 ML VIAL IVPB SCH (21:22)
[2017-07-14] MEDS: PIPERACIL/TAZOB 3.375 GM 3.375 GM/50 ML PREMIX IVPB SCH ×2 (21:25→21:26)
[2017-07-14] MEDS ORDERED: NOREPINEPHRINE BITARTRATE 4 MG/4 ML ML IV ONE ×2 (21:55→23:56)
[2017-07-14] MEDS: CHLORHEXIDINE GLUCONATE 4% CLEANSER FOR DECOLONIZATION TP SCH (22:30)
[2017-07-15] MEDS: PIPERACILLIN/TAZOB 2.25 GM 2.25 GM/50 ML BAG IVPB SCH ×2 (03:45→09:42)
[2017-07-15] MEDS: ALBUTEROL SO4 0.083% IH SOL 2.5 MG/3 ML VIAL.NEB. NEB SCH ×5 (06:12→22:08)
[2017-07-15 06:26] LABS: BASO % 0.3 % (0-2.0); HEMATOCRIT 35.4 % (35.4-49); HEMOGLOBIN 11.9 GM/dL (11.7-16.9); LYMPH % 0.9 % (8-40); MCH 30.4 pg (25.7-33.7); MCHC 33.6 g/dl (32.0-35.9); MEAN CELL VOLUME 90.4 fl (80-96); MEAN PLT VOLUME 9.7 fl (7.5-11.1); MONO % 3.1 % (3.8-10.2); NEUT % 95.7 % (42.8-82.8); PLATELET COUNT 126 K/MM3 (134-434); RBC 3.91 M/mm3 (4.00-5.60); RDW 14.9 % (11.9-15.9); WHITE BLOOD COUNT 12.5 K/mm3 (4.0-10.0)
[2017-07-15 06:46] LABS: ALBUMIN 2.1 g/dl (3.4-5.0); ALK PHOS 33 U/L (45-117); ANION GAP 13 (8-16); BILIRUBIN,TOTAL 0.4 mg/dL (0.2-1.0); BLOOD UREA NITROGEN 74 mg/dL (7-18); CHLORIDE 100 mmol/L (98-107); CO2 18 mmol/L (21-32); CREATININE 5.4 mg/dL (0.7-1.3); GLUCOSE,RANDOM 125 mg/dL (74-106); MAGNESIUM 2.5 mg/dL (1.8-2.4); PHOSPHOROUS 8.1 mg/dL (2.5-4.9); SGOT/AST 104 U/L (15-37); SGPT/ALT 119 U/L (12-78); SODIUM 131 mmol/L (136-145); TOT PROT 4.7 g/dl (6.4-8.2)
[2017-07-15 06:57] LABS: CALCIUM 6.4 mg/dL (8.5-10.1)
--- NOTE | 2017-07-15 07:14 | PN ---
Progress Note, Physician Chief Complaint: Off hypothermia protocol and sedation with no mental status History of Present Illness: 72 year old male with a pmhx of htn, psych disorder, and CAD s/p stents at [facility] in the past. Patient was crossing the stress to local diner/deli when had witnessed arrest/collapsed. CPR provided and EMS arrived. As per chart 15 minutes of resuscitation provided by ems and patient was intubated. Hypotension and started on pressors. On sedation for seizure like activity. - Current Medication List Current Medications: Active Medications Acetaminophen (Tylenol Suppository -) 650 mg [place] Q6H PRN PRN Reason: FEVER OR PAIN Albuterol Sulfate (Ventolin 0.083% Nebulizer Soln -) 1 amp NEB Q4HWA DUSTIN Last Admin: 07/15/17 06:12 Dose: 1 amp Chlorhexidine Gluconate (Hibiclens For Decolonization -) 1 applic TP HS DUSTIN Last Admin: 07/14/17 22:30 Dose: 1 applic Heparin Sodium (Porcine) (Heparin -) 1,000 unit IVPUSH PRN PRN PRN Reason: Heparin Heparin Sodium (Porcine) (Heparin -) 5,000 unit IVPUSH PRN PRN PRN Reason: Heparin Propofol (Diprivan -) 1,000,000 mcg in 100 mls @ 2.177 mls/hr IVPB TITR DUSTIN; 5 MCG/KG/MIN PRN Reason: Protocol Last Admin: 07/14/17 21:22 Dose: Not Given HEPARIN SOD,PORK IN 0.45% NACL (Heparin-1/2ns 25,000 Units/500) 25,000 units in 500 mls @ 20 mls/hr IVPB TITR DUSTIN; 1,000 UNITS/HR PRN Reason: Protocol Last Admin: 07/14/17 21:22 Dose: Not Given Norepinephrine Bitartrate 8, (000 mcg/ Dextrose) 500 mls @ 18.75 mls/hr IV TITR DUSTIN; 5 MCG/MIN PRN Reason: Protocol Last Admin: 07/14/17 22:28 Dose: 13 mcg/min, 48.75 mls/hr Levetiracetam 500 mg/ Dextrose 105 mls @ 420 mls/hr IVPB BID DUSTIN Last Admin: 07/14/17 22:27 Dose: 420 mls/hr Valproate Sodium 500 mg/ (Dextrose) 55 mls @ 55 mls/hr IVPB BID [facility] Last Admin: 07/14/17 22:29 Dose: 55 mls/hr Piperacillin/Tazobactam/Dextrose (Zosyn 2.25gm Ivpb (Premix)) 2.25 gm in 50 mls @ 100 mls/hr IVPB Q6H-IV [facility] Last Admin: 07/15/17 03:45 Dose: 100 mls/hr Lorazepam (Ativan Injection -) 2 mg IVPUSH Q4H PRN PRN Reason: ANXIETY Methylprednisolone Sodium Succinate (Solu-Medrol -) 60 mg IVPUSH QID [facility] Last Admin: 07/14/17 22:30 Dose: 60 mg Mupirocin (Bactroban Ointment (For Decolonization) -) 1 applic NS BID [facility] Stop: 07/17/17 21:59 Last Admin: 07/14/17 22:29 Dose: 1 applic Pantoprazole Sodium (Protonix Iv) 40 mg IVPUSH DAILY [facility] Last Admin: 07/14/17 10:00 Dose: 40 mg - Objective Vital Signs: Vital Signs Temperature 98.4 F 07/15/17 06:00 Pulse Rate 86 07/15/17 06:00 Respiratory Rate 26 H 07/15/17 06:00 Blood Pressure 88/52 07/15/17 06:00 O2 Sat by Pulse Oximetry (%) 96 07/14/17 23:16 Cardiovascular: Yes: Regular Rate and Rhythm, S1, S2 Respiratory: Yes: Mechanically Ventilated Gastrointestinal: Yes: Soft Edema: No Labs: CBC, BMP 07/15/17 05:50 07/15/17 05:50 INR, PTT INR 1.14 (0.82-1.09) 07/13/17 05:50 Problem List - Problems (1) Cardiac arrest Code(s): I46.9 - CARDIAC ARREST, CAUSE UNSPECIFIED Assessment/Plan 72 year old male with a pmhx of htn, psych disorder, and CAD s/p stents at [facility] in the past. Patient was crossing the stress to local diner/deli when had witnessed arrest/collapsed. CPR provided and EMS arrived. As per chart 15 minutes of resuscitation provided by ems and patient was intubated. Hypotension and started on pressors. On sedation for seizure like activity. CXR: clear CT head no acute m/s/b 1) Cardiac arrest unclear etiology. CT head no acute stroke. EKG sinus with pacs rbbb and no acute st elevations noted Echocardiogram with normal LV systolic function On levophed for hemodynamic support Heparin was on for ACS. Can stop heparin from ACS/cardiac perspective. Poor prognosis. If recoovers brain activity than would consider cardiac cath but highly unlikely
[2017-07-15 07:53] LABS: ARTERIAL BLD GAS O2 SATURATION 96.2 % (90-98.9); ARTERIAL BLOOD GAS BASE EXCESS -12.5 meq/l (-2-2); ARTERIAL BLOOD GAS PCO2 47.5 mmHg (35-45); ARTERIAL BLOOD GAS PO2 92.2 mmHg (70-100); ARTERIAL BLOOD GAS pH 7.15 (7.35-7.45)
--- NOTE | 2017-07-15 07:59 | PN ---
Progress Note (short form) - Note Progress Note: 72 year old male with a pmhx of htn, psych disorder, and CAD s/p stents at [facility] in the past. Patient was crossing the stress to local diner/deli when had witnessed arrest/collapsed. CPR provided and EMS arrived. As per chart 15 minutes of resuscitation provided by ems and patient was intubated. Hypotension and started on pressors. On sedation for seizure like activity - in field, noted to have myoclonic activity overnight--on propofol and versed and fentanyl. pt unresponsive. on hypothermic protocol. CT HD : mild forntal white matter changes. elevated LFTS, trop/CPK. FU : as per nurse , no further twitching noted, back on sedation, sedation inc bc of bronchospasm otherwise unresponsive - History Source History Provided By: Medical Record Limitations to Obtaining History: Unresponsive - Past Medical History BILL SORTER: Yes: CVA Cardio/Vascular: Yes: CAD, HTN Pulmonary: Yes: COPD Gastrointestinal: Yes: GERD Psych: Yes: Bipolar - Past Surgical History Past Surgical History: Yes: Stent - Alcohol/Substance Use Hx Alcohol Use: No - Smoking History Smoking history: Unknown if ever smoked Have you smoked in the past 12 months: Yes Aproximately how many cigarettes per day: 20 Home Medications - Allergies Allergies/Adverse Reactions: Allergies Allergy/AdvReac Type Severity Reaction Status Date / Time No Known Drug Allergies Allergy Verified 07/12/17 15:46 - Home Medications Home Medications: Ambulatory Orders Quinapril HCl [Accupril -] 40 mg PO DAILY 08/17/13 Risperidone [Risperdal] 50 mg IM UTDICT 08/17/13 Amlodipine Besylate [Norvasc -] 5 mg PO DAILY 10/30/14 Aspirin [ASA -] 81 mg PO DAILY 09/01/16 Cholecalciferol (Vitamin D3) [Vitamin D -] 1,000 unit PO DAILY 09/01/16 Propylene Glycol/Peg 400/Pf [Systane 0.3-0.4% Eye Drops] 1 each OP DAILY Salmeterol/Fluticasone [Advair 250Mcg/50Mcg -] 1 inh PO DAILY 09/01/16 Simvastatin [Zocor -] 20 mg PO HS 09/01/16 Travoprost [Travatan Z] 1 drop OP DAILY 09/01/16 Acetaminophen [Tylenol .Extra-Strength -] 1,000 mg PO Q6H PRN 09/02/16 Amlodipine Besylate [Norvasc -] 10 mg PO DAILY #30 tablet 09/04/16 Nicotine Patch [Nicoderm Patch -] 21 mg TD DAILY patch 09/04/16 Pantoprazole Sodium [Protonix -] 40 mg PO DAILY #30 tablet.ec 09/04/16 Unobtainable [Unobtainable] 07/12/17 Physical Exam-Neuro Vital Signs: Vital Signs Temperature 96.8 F L 07/14/17 10:00 Pulse Rate 78 07/14/17 10:00 Respiratory Rate 26 H 07/14/17 10:00 Blood Pressure 96/70 07/14/17 10:00 O2 Sat by Pulse Oximetry (%) 96 07/14/17 09:00 Constitutional: Yes: Pallor Labs: CBCD WBC 14.9 K/mm3 (4.0-10.0) H 07/14/17 05:20 RBC 4.32 M/mm3 (4.00-5.60) 07/14/17 05:20 Hgb 13.2 GM/dL (11.7-16.9) 07/14/17 05:20 Hct 39.1 % (35.4-49) 07/14/17 05:20 MCV 90.5 fl (80-96) 07/14/17 05:20 MCHC 33.7 g/dl (32.0-35.9) 07/14/17 05:20 RDW 15.0 % (11.9-15.9) 07/14/17 05:20 Plt Count 134 K/MM3 (134-434) 07/14/17 05:20 MPV 9.6 fl (7.5-11.1) 07/14/17 05:20 CMP Sodium 135 mmol/L (136-145) L 07/14/17 05:20 Potassium 4.7 mmol/L (3.5-5.1) 07/14/17 05:20 Chloride 103 mmol/L (98-107) 07/14/17 05:20 Carbon Dioxide 21 mmol/L (21-32) 07/14/17 05:20 Anion Gap 11 (8-16) 07/14/17 05:20 BUN 61 mg/dL (7-18) H D 07/14/17 05:20 Creatinine 3.6 mg/dL (0.7-1.3) H D 07/14/17 05:20 Creat Clearance w eGFR 16.80 (>60) 07/14/17 05:20 Calcium 6.5 mg/dL (8.5-10.1) L* 07/14/17 05:20 Total Bilirubin 0.4 mg/dL (0.2-1.0) 07/14/17 05:20 AST 164 U/L (15-37) H D 07/14/17 05:20 ALT 154 U/L (12-78) H 07/14/17 05:20 Alkaline Phosphatase 38 U/L (45-117) L 07/14/17 05:20 Total Protein 4.7 g/dl (6.4-8.2) L 07/14/17 05:20 Albumin 2.4 g/dl (3.4-5.0) L 07/14/17 05:20 - Neuro Exam Level Of Consciousness: Yes: Sedated (unresponsive, pupils 1mm, no dolls, no corneals, no spont movements , r ight forntal > left frontal twitching and eye blink, plantar down ) Imaging - Results Cat Scan: Report Reviewed, Image Reviewed Problem List - Problems (1) Anoxic-ischemic encephalopathy Code(s): G93.1 - ANOXIC BRAIN DAMAGE, NOT ELSEWHERE CLASSIFIED; I67.82 - CEREBRAL ISCHEMIA (2) Cardiac arrest Code(s): I46.9 - CARDIAC ARREST, CAUSE UNSPECIFIED (3) HTN (hypertension) Code(s): I10 - ESSENTIAL (PRIMARY) HYPERTENSION Assessment/Plan s/p cardiac arrest, with prolonged down time >15 min, resuscitated in field , though coded again in ER s/p hypothermic protocol, now off sedation noted to have post anoxic seizure like activity CT -no acute changes given prolonged arrest time, mechanism of anoxia, post anoxic seizures very poor prognosis, evidence of multiorgan failure cont keppra 1000bid and add on depkaote 500BID --watch LFTS midazolam sedation and re-taper when able ; check EEG Dr Dyer Problem List - Problems (1) Anoxic-ischemic encephalopathy Code(s): G93.1 - ANOXIC BRAIN DAMAGE, NOT ELSEWHERE CLASSIFIED; I67.82 - CEREBRAL ISCHEMIA (2) Cardiac arrest Code(s): I46.9 - CARDIAC ARREST, CAUSE UNSPECIFIED (3) HTN (hypertension) Code(s): I10 - ESSENTIAL (PRIMARY) HYPERTENSION
[2017-07-15 08:10] LABS: ALLENS TEST POSITIVE
[2017-07-15] MEDS: PANTOPRAZOLE SODIUM 40 MG VIAL IVPUSH SCH (09:42)
[2017-07-15] MEDS: methylPREDNISolone NA SUCC 40 MG/1 ML VIAL IVPUSH SCH ×4 (09:42→22:34)
[2017-07-15] MEDS ORDERED: NOREPINEPHRINE BITARTRATE 4 MG/4 ML ML IV ONE ×2 (10:21→22:09)
--- NOTE | 2017-07-15 11:51 | PN ---
Physical Exam: SUBJECTIVE: Patient seen and examined OBJECTIVE: Vital Signs Period Temp Pulse Resp BP Sys/Mock Pulse Ox Last 24 Hr 97.6 F-98.8 F 85-106 22-33 88-113/50-70 96-100 GENERAL: Sedated and non-responsiv, not twitching HEAD: Normal with no signs of trauma. EYES: Pinpoint and not apparently reactive ENT: Ears normal, nares patent, intubated LUNGS: Mechanical breath sounds. Breathing at vent rate but breathing spontaneously once vent rate lowered HEART: Regular rate and rhythm, S1, S2 without murmur, rub or gallop. ABDOMEN: Soft, nontender, nondistended, normoactive bowel sounds, no guarding, no rebound, no hepatosplenomegaly, no masses. EXTREMITIES: cool extremities, non mottled skin, no edema NEUROLOGICAL: Heavily sedated, no pupillary response, no response to pain, but breathing reflex intact. SKIN: Warm centrally but cool periphery, dry, normal turgor, no rashes or lesions noted Laboratory Results - last 24 hr 07/15/17 07/15/17 07/15/17 05:50 05:50 05:50 WBC 12.5 H RBC 3.91 L Hgb 11.9 Hct 35.4 MCV 90.4 MCH 30.4 MCHC 33.6 RDW 14.9 Plt Count 126 L MPV 9.7 Neutrophils % 95.7 H Lymphocytes % 0.9 L Monocytes % 3.1 L Eosinophils % 0.0 Basophils % 0.3 PTT (Actin FS) 47.8 H Puncture Site ABG pH ABG pCO2 at Pt Temp ABG pO2 at Pt Temp ABG HCO3 ABG O2 Sat (Measured) ABG O2 Content ABG Base Excess Anthony Test O2 Delivery Device Oxygen Flow Rate Vent Mode Vent Rate Mechanical Rate PEEP Pressure Support Vent Sodium Potassium Chloride Carbon Dioxide Anion Gap BUN Creatinine Creat Clearance w eGFR Random Glucose Calcium Phosphorus Magnesium Total Bilirubin AST ALT Alkaline Phosphatase Total Protein Albumin Random Vancomycin 18.194 07/15/17 07/15/17 05:50 07:39 WBC RBC Hgb Hct MCV MCH MCHC RDW Plt Count MPV Neutrophils % Lymphocytes % Monocytes % Eosinophils % Basophils % PTT (Actin FS) Puncture Site Arterial line ABG pH 7.15 L* ABG pCO2 at Pt Temp 47.5 H ABG pO2 at Pt Temp 92.2 ABG HCO3 15.8 L ABG O2 Sat (Measured) 96.2 ABG O2 Content 15.3 ABG Base Excess -12.5 L* Anthony Test Positive O2 Delivery Device Ventilator Oxygen Flow Rate 40 Vent Mode A/c Vent Rate 26 Mechanical Rate Yes PEEP 5.0 Pressure Support Vent 400 Sodium 131 L Potassium 5.0 Chloride 100 Carbon Dioxide 18 L Anion Gap 13 BUN 74 H D Creatinine 5.4 H D Creat Clearance w eGFR 10.52 Random Glucose 125 H D Calcium 6.4 L* Phosphorus 8.1 H Magnesium 2.5 H Total Bilirubin 0.4 AST 104 H D ALT 119 H D Alkaline Phosphatase 33 L Total Protein 4.7 L Albumin 2.1 L Random Vancomycin Active Medications Generic Name Dose Route Start Last Admin Trade Name Freq PRN Reason Stop Dose Admin Acetaminophen 650 mg 07/12/17 13:13 Tylenol Suppository - [place] Q6H PRN FEVER OR PAIN Albuterol Sulfate 1 amp 07/13/17 10:45 07/15/17 06:12 Ventolin 0.083% Nebulizer Soln - NEB 1 amp Q4HWA DUSTIN Administration Chlorhexidine Gluconate 1 applic 07/12/17 22:00 07/14/17 22:30 Hibiclens For Decolonization - TP 1 applic HS DUSTIN Administration Heparin Sodium (Porcine) 5,000 unit 07/12/17 19:16 Heparin - IVPUSH PRN PRN Heparin Propofol 1,000,000 mcg in 100 mls @ 2.177 mls/hr 07/12/17 14:00 07/14/17 21: 22 Diprivan - IVPB Not Given TITR DUSTIN Protocol 5 MCG/KG/MIN Norepinephrine Bitartrate 8, 500 mls @ 18.75 mls/hr 07/12/17 21:30 07/14/17 22:28 000 mcg/ Dextrose IV 13 mcg/min TITR DUSTIN 48.75 mls/hr Protocol Administration 5 MCG/MIN Levetiracetam 500 mg/ Dextrose 105 mls @ 420 mls/hr 07/14/17 10:30 07/14/17 22:27 IVPB 420 mls/hr BID DUSTIN Administration Valproate Sodium 500 mg/ 55 mls @ 55 mls/hr 07/14/17 10:36 07/14/17 22:29 Dextrose IVPB 55 mls/hr BID DUSTIN Administration Sodium Bicarbonate 150 meq/ 1,150 mls @ 50 mls/hr 07/15/17 10:45 Dextrose IV Q23H [facility] CEFTRIAXONE 1 G/50 ML PREMIX 50 mls @ 100 mls/hr 07/15/17 11:00 Ceftriaxone 1 Gm-D5w Bag IVPB DAILY [facility] Lorazepam 2 mg 07/13/17 02:57 Ativan Injection - IVPUSH Q4H PRN ANXIETY Methylprednisolone Sodium Succinate 60 mg 07/12/17 14:00 07/15/17 09:42 Solu-Medrol - IVPUSH 60 mg QID DUSTIN Administration Mupirocin 1 applic 07/12/17 22:00 07/14/17 22:29 Bactroban Ointment (For Decolonization) - NS 07/17/17 21:59 1 applic BID DUSTIN Administration Pantoprazole Sodium 40 mg 07/13/17 11:00 07/15/17 09:42 Protonix Iv IVPUSH 40 mg DAILY DUSTIN Administration ASSESSMENT/PLAN: 72 M with PMH of MS, CAD s/p stenting x2, HTN, and bipolar disorder presenting s /p cardiac arrest with ROSC after 15 minutes, intubated in the field and received 4 rounds of Epinephrine, 1 amp of Bicarb, and 1 amp of calcium gluconate and found to be 91.1 on rectal temp. Currently intubated sedated on propofol and requiring norepinephrine at increasing levels. Neuro: #AMS: Patient is sedated and paralyzed currently so difficult to assess mental status - Off of paralytics - Fentanyl removed at approximately 9:30 AM #Seizure activity vs. myclonus: - Likely seizure activity per neurology - Continue Keppra at 500 BID (renally dosed), Depakote 500 BID, and propofol titrated to reduce twitching CV: # Hypotension: Likely due to septic vs. cardiogenic shock. Right fem shiley removed. - Off vaso - titrate levo - fluid boluses PRN # Cardiac arrest: Unclear etiology but less likely acute MS. We have high suspicion for PE given new RBBB pattern with elevated troponins peaked at 1.68. Echo showing mild to mod Mitral valve thickening with trace regurg. No DVT on dopplers. Otherwise grossly normal. No sign of right heart strain. No need for CTA as PE unlikely per above. - Heparin DC'd #lactic acidosis: resolved Pulm: #Hypoxic respiratory failure/ Hypercapnic respiratory failure: secondary to arrest likely but patient has known COPD and ABG demonstrated PCO2 in 80s in admission - Current ABGs evidencing respiratory acidosis at pH 7.10 but close enough to permissive level of 7.15 - repeat ABG tomorrow morning - Initiating breaths at mid teens but needs to be in 20s to correct metabolic acidosis - Continue ARDS net with plat <30 and TV @ 6-8 MG/KG as goal (396-528 mL). - Continue steroids - permissive hypercapnia and acidosis (goal ~>7.15) FEN: - replete lytes PRN PPX: - Heparin 5 K - Protonix Dispo: - Vented and on pressers. Will need both to resolve with consciousness in order to transfer. - Bleak outlook and discussed with family per primary team. GOC will be reassessed in 24 hours- likely compassionate extubation. Visit type - Emergency Visit Emergency Visit: No - New Patient This patient is new to me today: No - Critical Care Critical Care patient: Yes Total Critical Care Time (in minutes): 35 Critical Care Statement: The care of this patient involved high complexity decision making to prevent further life threatening deterioration of the patient 's condition and/or to evaluate & treat vital organ system(s) failure or risk of failure. - Discharge Referral Referred to [facility] Med [facility].: No
[2017-07-15] MEDS: WATER IVPB SCH ×2 (12:01→22:47)
[2017-07-15] MEDS: VALPROATE SODIUM IVPB SCH ×2 (12:01→22:47)
[2017-07-15] MEDS: MUPIROCIN 2% TOPICAL OINTMENT FOR DECOLONIZATION NS SCH ×2 (12:01→22:31)
[2017-07-15] MEDS: LEVETIRACETAM INJECTION 500 MG in DEXTROSE 5%-WATER - 100 ML IVPB SCH ×2 (12:01→22:31)
[2017-07-15] MEDS: DEXTROSE 5% IVPB SCH ×2 (12:01→22:47)
[2017-07-15] MEDS: SODIUM BICARBONATE 8.4% - 150 MEQ in DEXTROSE 5%-WATER - 1,000 ML IV SCH (12:09)
--- NOTE | 2017-07-15 12:36 | PN ---
Teaching Attending Note Name of Resident: Cullen Lopez ATTENDING PHYSICIAN STATEMENT I saw and evaluated the patient. I reviewed the resident's note and discussed the case with the resident. I agree with the resident's findings and plan as documented. SUBJECTIVE: Pt seen and examined in the ICU. Remains intubated, unresponsive. Pupils pinpoint but no oculocephalic, corneal, cough or gag. Takes spontaneous breaths. Made DNR yesterday. OBJECTIVE: Last Vital Signs Temp Pulse Resp BP Pulse Ox 97.7 F 89 19 98/53 97 07/15/17 12:00 07/15/17 12:00 07/15/17 12:00 07/15/17 12:00 07/15/17 09:00 Intake & Output 07/12/17 07/13/17 07/14/17 07/15/17 23:59 23:59 23:59 23:59 Intake Total 5431.4 2948.2 928 836 Output Total 450 400 250 50 Balance 4981.4 2548.2 678 786 Weight 66.996 kg 70.715 kg 70.443 kg 70.76 kg Gen: intubated, unresponsive Heart: RRR Lung: bilateral rhonchi, wheezes Abd: soft, nontender Ext: + edema CBC, BMP 07/15/17 05:50 07/15/17 05:50 Active Medications Acetaminophen (Tylenol Suppository -) 650 mg [place] Q6H PRN PRN Reason: FEVER OR PAIN Albuterol Sulfate (Ventolin 0.083% Nebulizer Soln -) 1 amp NEB Q4HWA DUSTIN Last Admin: 07/15/17 06:12 Dose: 1 amp Chlorhexidine Gluconate (Hibiclens For Decolonization -) 1 applic TP HS DUSTIN Last Admin: 07/14/17 22:30 Dose: 1 applic Heparin Sodium (Porcine) (Heparin -) 5,000 unit IVPUSH PRN PRN PRN Reason: Heparin Propofol (Diprivan -) 1,000,000 mcg in 100 mls @ 2.177 mls/hr IVPB TITR DUSTIN; 5 MCG/KG/MIN PRN Reason: Protocol Last Admin: 07/14/17 21:22 Dose: Not Given Norepinephrine Bitartrate 8, (000 mcg/ Dextrose) 500 mls @ 18.75 mls/hr IV TITR DUSTIN; 5 MCG/MIN PRN Reason: Protocol Last Admin: 07/14/17 22:28 Dose: 13 mcg/min, 48.75 mls/hr Levetiracetam 500 mg/ Dextrose 105 mls @ 420 mls/hr IVPB BID [facility] Last Admin: 07/15/17 12:01 Dose: 420 mls/hr Valproate Sodium 500 mg/ (Dextrose) 55 mls @ 55 mls/hr IVPB BID [facility] Last Admin: 07/15/17 12:01 Dose: 55 mls/hr Sodium Bicarbonate 150 meq/ (Dextrose) 1,150 mls @ 50 mls/hr IV Q23H [facility] Last Admin: 07/15/17 12:09 Dose: 50 mls/hr CEFTRIAXONE 1 G/50 ML PREMIX (Ceftriaxone 1 Gm-D5w Bag) 50 mls @ 100 mls/hr IVPB DAILY [facility] Lorazepam (Ativan Injection -) 2 mg IVPUSH Q4H PRN PRN Reason: ANXIETY Methylprednisolone Sodium Succinate (Solu-Medrol -) 60 mg IVPUSH QID [facility] Last Admin: 07/15/17 09:42 Dose: 60 mg Mupirocin (Bactroban Ointment (For Decolonization) -) 1 applic NS BID [facility] Stop: 07/17/17 21:59 Last Admin: 07/15/17 12:01 Dose: 1 applic Pantoprazole Sodium (Protonix Iv) 40 mg IVPUSH DAILY [facility] Last Admin: 07/15/17 09:42 Dose: 40 mg ASSESSMENT AND PLAN: s/p Cardiopulmonary Arrest Shock - Septic vs Cardiogenic r/o Anoxic Encephalopathy Metabolic Acidosis r/o Pulmonary Embolism +Troponins r/o Myocardial Infarction Acute Kidney Injury Acute COPD Exacerbation - s/p hypothermia protocol - continue empiric antibiotics - titrate pressors to maintain MAP >65 - continue empiric medrol as pt with normal plateau pressures and high peak pressures - inhaled bronchodilators - allow permissive hypercapnea - start bicarb gtt given metabolic acidosis - continue empiric anticoagulation - minimize sedation to assess mental status - spontaneous breathing trials if mental status improved - enteral feeds - DVT/GI prophylaxis - continue ICU monitoring - poor overall prognosis, continue discussions regarding goals of care, pt now DNR critical care time spent in reviewing chart, evaluating patient and formulating plan 40 min
--- NOTE | 2017-07-15 13:46 | PN ---
Progress Note, Physician Chief Complaint: Cardiac arrest - Current Medication List Current Medications: Active Medications Acetaminophen (Tylenol Suppository -) 650 mg [place] Q6H PRN PRN Reason: FEVER OR PAIN Albuterol Sulfate (Ventolin 0.083% Nebulizer Soln -) 1 amp NEB Q4HWA [facility] Last Admin: 07/15/17 12:34 Dose: 1 amp Chlorhexidine Gluconate (Hibiclens For Decolonization -) 1 applic TP HS [facility] Last Admin: 07/14/17 22:30 Dose: 1 applic Heparin Sodium (Porcine) (Heparin -) 5,000 unit IVPUSH PRN PRN PRN Reason: Heparin Propofol (Diprivan -) 1,000,000 mcg in 100 mls @ 2.177 mls/hr IVPB TITR DUSTIN; 5 MCG/KG/MIN PRN Reason: Protocol Last Admin: 07/14/17 21:22 Dose: Not Given Norepinephrine Bitartrate 8, (000 mcg/ Dextrose) 500 mls @ 18.75 mls/hr IV TITR DUSTIN; 5 MCG/MIN PRN Reason: Protocol Last Admin: 07/14/17 22:28 Dose: 13 mcg/min, 48.75 mls/hr Levetiracetam 500 mg/ Dextrose 105 mls @ 420 mls/hr IVPB BID [facility] Last Admin: 07/15/17 12:01 Dose: 420 mls/hr Valproate Sodium 500 mg/ (Dextrose) 55 mls @ 55 mls/hr IVPB BID [facility] Last Admin: 07/15/17 12:01 Dose: 55 mls/hr Sodium Bicarbonate 150 meq/ (Dextrose) 1,150 mls @ 50 mls/hr IV Q23H [facility] Last Admin: 07/15/17 12:09 Dose: 50 mls/hr CEFTRIAXONE 1 G/50 ML PREMIX (Ceftriaxone 1 Gm-D5w Bag) 50 mls @ 100 mls/hr IVPB DAILY [facility] Lorazepam (Ativan Injection -) 2 mg IVPUSH Q4H PRN PRN Reason: ANXIETY Methylprednisolone Sodium Succinate (Solu-Medrol -) 60 mg IVPUSH QID [facility] Last Admin: 07/15/17 09:42 Dose: 60 mg Mupirocin (Bactroban Ointment (For Decolonization) -) 1 applic NS BID [facility] Stop: 07/17/17 21:59 Last Admin: 07/15/17 12:01 Dose: 1 applic Pantoprazole Sodium (Protonix Iv) 40 mg IVPUSH DAILY [facility] Last Admin: 07/15/17 09:42 Dose: 40 mg - Objective Vital Signs: Vital Signs Temperature 97.7 F 07/15/17 12:00 Pulse Rate 89 07/15/17 12:00 Respiratory Rate 19 07/15/17 12:00 Blood Pressure 98/53 07/15/17 12:00 O2 Sat by Pulse Oximetry (%) 97 07/15/17 09:00 Constitutional: Yes: Well Nourished, Mild Distress Eyes: Yes: Other Cardiovascular: Yes: Regular Rate and Rhythm, Murmur (systolic grade III/) Respiratory: Yes: Mechanically Ventilated Gastrointestinal: Yes: Soft Labs: CBC, BMP 07/15/17 05:50 07/15/17 05:50 INR, PTT INR 1.14 (0.82-1.09) 07/13/17 05:50
[2017-07-15] MEDS: CEFTRIAXONE 1 G/50 ML PREMIX 50 ML IVPB SCH (14:19)
[2017-07-15] MEDS: PROPOFOL 1,000,000 MCG/100 ML VIAL IVPB SCH (18:24)
[2017-07-15] MEDS ORDERED: PT OWN MED DRAWER 7, Y5N ONE (22:09)
[2017-07-15] MEDS: NOREPINEPHRINE BITARTRATE 8,000 MCG in DEXTROSE 5%-WATER - 492 ML IV SCH (22:30)
[2017-07-15] MEDS: CHLORHEXIDINE GLUCONATE 4% CLEANSER FOR DECOLONIZATION TP SCH (22:31)
[2017-07-16] MEDS: ALBUTEROL SO4 0.083% IH SOL 2.5 MG/3 ML VIAL.NEB. NEB SCH ×5 (05:20→22:36)
[2017-07-16 06:52] LABS: HEMATOCRIT 36.5 % (35.4-49); MCH 29.8 pg (25.7-33.7); MCHC 32.8 g/dl (32.0-35.9); MEAN CELL VOLUME 90.9 fl (80-96); MEAN PLT VOLUME 9.9 fl (7.5-11.1); PLATELET COUNT 105 K/MM3 (134-434); RBC 4.02 M/mm3 (4.00-5.60); RDW 15.3 % (11.9-15.9); WHITE BLOOD COUNT 13.4 K/mm3 (4.0-10.0)
[2017-07-16 07:03] LABS: ALBUMIN 2.3 g/dl (3.4-5.0); BLOOD UREA NITROGEN 87 mg/dL (7-18); CHLORIDE 94 mmol/L (98-107); GLUCOSE,RANDOM 135 mg/dL (74-106); POTASSIUM 5.6 mmol/L (3.5-5.1); SGOT/AST 85 U/L (15-37); SODIUM 129 mmol/L (136-145)
[2017-07-16 07:10] LABS: ALK PHOS 29 U/L (45-117); ANION GAP 15 (8-16); BILIRUBIN,TOTAL 0.3 mg/dL (0.2-1.0); CO2 20 mmol/L (21-32); CREATININE 6.7 mg/dL (0.7-1.3); MAGNESIUM 2.6 mg/dL (1.8-2.4); SGPT/ALT 105 U/L (12-78); TOT PROT 5.1 g/dl (6.4-8.2)
[2017-07-16 07:21] LABS: INR 0.86 (0.82-1.09); PROTHROMBIN TIME (PATIENT) 9.7 SEC (9.98-11.88)
[2017-07-16 07:49] LABS: ARTERIAL BLOOD GAS PCO2 58.5 mmHg (35-45); ARTERIAL BLOOD GAS PO2 74.4 mmHg (70-100)
[2017-07-16 07:52] LABS: ALLENS TEST POSITIVE
[2017-07-16 07:58] LABS: ARTERIAL BLOOD GAS pH 7.11 (7.35-7.45)
[2017-07-16 07:59] LABS: ARTERIAL BLOOD GAS BASE EXCESS -11.9 meq/l (-2-2)
--- NOTE | 2017-07-16 08:41 | PN ---
Physical Exam: SUBJECTIVE: No change in overall prognosis. Family meeting at 12:00 today. OBJECTIVE: Vital Signs Period Temp Pulse Resp BP Sys/Mock Pulse Ox Last 24 Hr 97 F-98.2 F 82-90 16-33 88-126/40-70 97-100 GENERAL: Sedated and non-responsive, not twitching HEAD: Normal with no signs of trauma. EYES: Pinpoint and not apparently reactive ENT: Ears normal, nares patent, intubated LUNGS: Mechanical breath sounds. Breathing at vent rate but breathing spontaneously once vent rate lowered HEART: Regular rate and rhythm, S1, S2 without murmur, rub or gallop. ABDOMEN: Soft, nontender, nondistended, normoactive bowel sounds, no guarding, no rebound, no hepatosplenomegaly, no masses. EXTREMITIES: cool extremities, non mottled skin, no edema NEUROLOGICAL: Heavily sedated, no pupillary response, no response to pain, but breathing reflex intact. SKIN: Warm centrally but cool periphery, dry, normal turgor, no rashes or lesions noted Laboratory Results - last 24 hr 07/16/17 07/16/17 07/16/17 06:10 06:10 06:10 WBC 13.4 H RBC 4.02 Hgb 12.0 Hct 36.5 MCV 90.9 MCH 29.8 MCHC 32.8 RDW 15.3 Plt Count 105 L MPV 9.9 PT with INR 9.70 L INR 0.86 Puncture Site ABG pH ABG pCO2 at Pt Temp ABG pO2 at Pt Temp ABG HCO3 ABG O2 Sat (Measured) ABG O2 Content ABG Base Excess Anthony Test Oxygen Flow Rate Vent Rate PEEP Pressure Support Vent Sodium 129 L Potassium 5.6 H Chloride 94 L Carbon Dioxide 20 L Anion Gap 15 BUN 87 H Creatinine 6.7 H D Creat Clearance w eGFR 8.20 Random Glucose 135 H Calcium 7.0 L Magnesium 2.6 H Total Bilirubin 0.3 D AST 85 H ALT 105 H Alkaline Phosphatase 29 L Total Protein 5.1 L Albumin 2.3 L 07/16/17 07:30 WBC RBC Hgb Hct MCV MCH MCHC RDW Plt Count MPV PT with INR INR Puncture Site Arterial line ABG pH 7.11 L* ABG pCO2 at Pt Temp 58.5 H D ABG pO2 at Pt Temp 74.4 ABG HCO3 17.7 L ABG O2 Sat (Measured) 93.0 ABG O2 Content 15.0 ABG Base Excess -11.9 L* Anthony Test Positive Oxygen Flow Rate 40% Vent Rate 16 PEEP 5.0 Pressure Support Vent 400 Sodium Potassium Chloride Carbon Dioxide Anion Gap BUN Creatinine Creat Clearance w eGFR Random Glucose Calcium Magnesium Total Bilirubin AST ALT Alkaline Phosphatase Total Protein Albumin Active Medications Generic Name Dose Route Start Last Admin Trade Name Freq PRN Reason Stop Dose Admin Acetaminophen 650 mg 07/12/17 13:13 Tylenol Suppository - [place] Q6H PRN FEVER OR PAIN Albuterol Sulfate 1 amp 07/13/17 10:45 07/16/17 05:20 Ventolin 0.083% Nebulizer Soln - NEB 1 amp Q4HWA DUSTIN Administration Chlorhexidine Gluconate 1 applic 07/12/17 22:00 07/15/17 22:31 Hibiclens For Decolonization - TP 1 applic HS DUSTIN Administration Heparin Sodium (Porcine) 5,000 unit 07/12/17 19:16 Heparin - IVPUSH PRN PRN Heparin Propofol 1,000,000 mcg in 100 mls @ 2.177 mls/hr 07/12/17 14:00 07/15/17 18: 24 Diprivan - IVPB 14 mcg/kg/min TITR DUSTIN 6.1 mls/hr Protocol Administration 5 MCG/KG/MIN Norepinephrine Bitartrate 8, 500 mls @ 18.75 mls/hr 07/12/17 21:30 07/15/17 22:30 000 mcg/ Dextrose IV Not Given TITR DUSTIN Protocol 5 MCG/MIN Levetiracetam 500 mg/ Dextrose 105 mls @ 420 mls/hr 07/14/17 10:30 07/15/17 22:31 IVPB 420 mls/hr BID DUSTIN Administration Valproate Sodium 500 mg/ 55 mls @ 55 mls/hr 07/14/17 10:36 07/15/17 22:47 Dextrose IVPB 55 mls/hr BID DUSTIN Administration Sodium Bicarbonate 150 meq/ 1,150 mls @ 50 mls/hr 07/15/17 10:45 07/15/17 12: 09 Dextrose IV 50 mls/hr Q23H DUSTIN Administration CEFTRIAXONE 1 G/50 ML PREMIX 50 mls @ 100 mls/hr 07/15/17 11:00 07/15/17 14: 19 Ceftriaxone 1 Gm-D5w Bag IVPB 100 mls/hr DAILY DUSTIN Administration Methylprednisolone Sodium Succinate 60 mg 07/12/17 14:00 07/15/17 22:34 Solu-Medrol - IVPUSH 60 mg QID DUSTIN Administration Mupirocin 1 applic 07/12/17 22:00 07/15/17 22:31 Bactroban Ointment (For Decolonization) - NS 07/17/17 21:59 1 applic BID DUSTIN Administration Pantoprazole Sodium 40 mg 07/13/17 11:00 07/15/17 09:42 Protonix Iv IVPUSH 40 mg DAILY DUSTIN Administration ASSESSMENT/PLAN: 72 M with PMH of ME, CAD s/p stenting x2, HTN, and bipolar disorder presenting s /p cardiac arrest with ROSC after 15 minutes, intubated in the field and received 4 rounds of Epinephrine, 1 amp of Bicarb, and 1 amp of calcium gluconate and found to be 91.1 on rectal temp. Currently intubated sedated on propofol and requiring norepinephrine at increasing levels with compassionate wean set for Wednesday and family deferring new lab work. Neuro: #AMS: Patient is sedated and paralyzed currently so difficult to assess mental status - Off of paralytics - Back on propofol per below #Seizure activity vs. myclonus: - Likely seizure activity per neurology - Continue Keppra at 500 BID (renally dosed), Depakote 500 BID, and propofol titrated to reduce twitching (currently at 15). CV: # Hypotension: Likely due to septic vs. cardiogenic shock. Right fem shiley removed. - Off vaso - Maintain levo til Wednesday - fluid boluses PRN # Cardiac arrest: Unclear etiology but less likely acute ME. We have high suspicion for PE given new RBBB pattern with elevated troponins peaked at 1.68. Echo showing mild to mod Mitral valve thickening with trace regurg. No DVT on dopplers. Otherwise grossly normal. No sign of right heart strain. No need for CTA as PE unlikely per above. Heparin DC'd #lactic acidosis: resolved Pulm: #Hypoxic respiratory failure/ Hypercapnic respiratory failure: secondary to arrest likely but patient has known COPD and ABG demonstrated PCO2 in 80s in admission - Current ABGs evidencing respiratory acidosis at pH 7.11 so will increase rate to 24 - No more ABGs needed - Initiating breaths at mid teens but needs to be in 20s to correct metabolic acidosis - Continue ARDS net with plat <30 and TV @ 6-8 MG/KG as goal (396-528 mL). - Continue steroids - permissive hypercapnia and acidosis (goal ~>7.15) FEN: - no more lyte checks or repletion PPX: - Heparin 5 K - Protonix Dispo: - Per family meeting today, patient does not need any more laboratory checks unless it is to acutely help him stay alive til Wednesday. Compassionate wean on Wednesday. Visit type - Emergency Visit Emergency Visit: No - New Patient This patient is new to me today: No - Critical Care Critical Care patient: Yes Total Critical Care Time (in minutes): 35 Critical Care Statement: The care of this patient involved high complexity decision making to prevent further life threatening deterioration of the patient 's condition and/or to evaluate & treat vital organ system(s) failure or risk of failure. - Discharge Referral Referred to [facility] Med [facility] No
[2017-07-16] MEDS ORDERED: PT OWN MED DRAWER 7, Y5N ONE ×3 (09:12→22:06)
[2017-07-16] MEDS: SODIUM BICARBONATE 8.4% - 150 MEQ in DEXTROSE 5%-WATER - 1,000 ML IV SCH (09:25)
[2017-07-16] MEDS: MUPIROCIN 2% TOPICAL OINTMENT FOR DECOLONIZATION NS SCH ×2 (09:26→21:08)
[2017-07-16] MEDS: CEFTRIAXONE 1 G/50 ML PREMIX 50 ML IVPB SCH (09:28)
[2017-07-16] MEDS: PANTOPRAZOLE SODIUM 40 MG VIAL IVPUSH SCH (09:32)
--- NOTE | 2017-07-16 09:32 | PN ---
Progress Note, Physician History of Present Illness: SEDATED--now off - Current Medication List Current Medications: Active Medications Acetaminophen (Tylenol Suppository -) 650 mg [place] Q6H PRN PRN Reason: FEVER OR PAIN Albuterol Sulfate (Ventolin 0.083% Nebulizer Soln -) 1 amp NEB Q4HWA [facility] Last Admin: 07/16/17 05:20 Dose: 1 amp Chlorhexidine Gluconate (Hibiclens For Decolonization -) 1 applic TP HS [facility] Last Admin: 07/15/17 22:31 Dose: 1 applic Heparin Sodium (Porcine) (Heparin -) 5,000 unit IVPUSH PRN PRN PRN Reason: Heparin Propofol (Diprivan -) 1,000,000 mcg in 100 mls @ 2.177 mls/hr IVPB TITR DUSTIN; 5 MCG/KG/MIN PRN Reason: Protocol Last Admin: 07/15/17 18:24 Dose: 14 mcg/kg/min, 6.1 mls/hr Norepinephrine Bitartrate 8, (000 mcg/ Dextrose) 500 mls @ 18.75 mls/hr IV TITR DUSTIN; 5 MCG/MIN PRN Reason: Protocol Last Admin: 07/15/17 22:30 Dose: Not Given Levetiracetam 500 mg/ Dextrose 105 mls @ 420 mls/hr IVPB BID [facility] Last Admin: 07/15/17 22:31 Dose: 420 mls/hr Valproate Sodium 500 mg/ (Dextrose) 55 mls @ 55 mls/hr IVPB BID [facility] Last Admin: 07/15/17 22:47 Dose: 55 mls/hr Sodium Bicarbonate 150 meq/ (Dextrose) 1,150 mls @ 50 mls/hr IV Q23H [facility] Last Admin: 07/15/17 12:09 Dose: 50 mls/hr CEFTRIAXONE 1 G/50 ML PREMIX (Ceftriaxone 1 Gm-D5w Bag) 50 mls @ 100 mls/hr IVPB DAILY [facility] Last Admin: 07/15/17 14:19 Dose: 100 mls/hr Methylprednisolone Sodium Succinate (Solu-Medrol -) 60 mg IVPUSH QID [facility] Last Admin: 07/15/17 22:34 Dose: 60 mg Mupirocin (Bactroban Ointment (For Decolonization) -) 1 applic NS BID [facility] Stop: 07/17/17 21:59 Last Admin: 07/15/17 22:31 Dose: 1 applic Pantoprazole Sodium (Protonix Iv) 40 mg IVPUSH DAILY DUSTIN Last Admin: 07/15/17 09:42 Dose: 40 mg - Objective Vital Signs: Vital Signs Temperature 97 F L 07/16/17 06:00 Pulse Rate 82 07/16/17 06:00 Respiratory Rate 16 07/16/17 07:19 Blood Pressure 101/49 07/16/17 06:00 O2 Sat by Pulse Oximetry (%) 97 07/15/17 20:00 Cardiovascular: Yes: S1, S2 Respiratory: Yes: Mechanically Ventilated Labs: CBC, BMP 07/16/17 06:10 07/16/17 06:10 INR, PTT INR 0.86 (0.82-1.09) 07/16/17 06:10 Problem List - Problems (1) Cardiac arrest Assessment/Plan: ICU SUPPORT PRESSORS FOLLOW LABS D/W SISTER--PROGNOSIS POOR --POSSIBLE WEANING ON WEDNESDAY ECHO NL LV Code(s): I46.9 - CARDIAC ARREST, CAUSE UNSPECIFIED (2) Acute respiratory failure Assessment/Plan: ON VENT MONITOR Code(s): J96.00 - ACUTE RESPIRATORY FAILURE, UNSP W HYPOXIA OR HYPERCAPNIA (3) COPD (chronic obstructive pulmonary disease) Assessment/Plan: ABOVE STEROIDS NEBS Code(s): J44.9 - CHRONIC OBSTRUCTIVE PULMONARY DISEASE, UNSPECIFIED (4) HTN (hypertension) Code(s): I10 - ESSENTIAL (PRIMARY) HYPERTENSION (5) Anoxic-ischemic encephalopathy Assessment/Plan: DC SEDATION AND MONITOR Code(s): G93.1 - ANOXIC BRAIN DAMAGE, NOT ELSEWHERE CLASSIFIED; I67.82 - CEREBRAL ISCHEMIA
[2017-07-16] MEDS: methylPREDNISolone NA SUCC 40 MG/1 ML VIAL IVPUSH SCH ×4 (09:34→23:00)
[2017-07-16 10:32] LABS: PHOSPHOROUS 9.7 mg/dL (2.5-4.9)
[2017-07-16] MEDS: LEVETIRACETAM INJECTION 500 MG in DEXTROSE 5%-WATER - 100 ML IVPB SCH ×2 (10:38→21:08)
[2017-07-16] MEDS: WATER IVPB SCH ×2 (10:38→22:33)
[2017-07-16] MEDS: DEXTROSE 5% IVPB SCH ×2 (10:38→22:33)
[2017-07-16] MEDS: VALPROATE SODIUM IVPB SCH ×2 (10:38→22:33)
--- NOTE | 2017-07-16 11:42 | PN ---
Teaching Attending Note Name of Resident: Cullen Lopez ATTENDING PHYSICIAN STATEMENT I saw and evaluated the patient. I reviewed the resident's note and discussed the case with the resident. I agree with the resident's findings and plan as documented. SUBJECTIVE: Patient seen and examined in the ICU. Remains intubated, unresponsive. Decorticate movements with deep stimulation. AC Mode of vent. Pupils pinpoint. Worsening acidosis. OBJECTIVE: Intake & Output 07/13/17 07/14/17 07/15/17 07/16/17 23:59 23:59 23:59 23:59 Intake Total 2948.2 928 2161 1433.2 Output Total 400 250 110 30 Balance 2548.2 678 2051 1403.2 Weight 155 lb 14.4 oz 155 lb 4.8 oz 156 lb 157 lb 3.2 oz Last Vital Signs Temp Pulse Resp BP Pulse Ox 97 F L 85 21 101/49 93 L 07/16/17 06:00 07/16/17 10:20 07/16/17 09:25 07/16/17 06:00 07/16/17 10:20 Active Medications Acetaminophen (Tylenol Suppository -) 650 mg [place] Q6H PRN PRN Reason: FEVER OR PAIN Albuterol Sulfate (Ventolin 0.083% Nebulizer Soln -) 1 amp NEB Q4HWA DUSTIN Last Admin: 07/16/17 11:06 Dose: 1 amp Chlorhexidine Gluconate (Hibiclens For Decolonization -) 1 applic TP HS DUSTIN Last Admin: 07/15/17 22:31 Dose: 1 applic Heparin Sodium (Porcine) (Heparin -) 5,000 unit IVPUSH PRN PRN PRN Reason: Heparin Propofol (Diprivan -) 1,000,000 mcg in 100 mls @ 2.177 mls/hr IVPB TITR DUSTIN; 5 MCG/KG/MIN PRN Reason: Protocol Last Admin: 07/15/17 18:24 Dose: 14 mcg/kg/min, 6.1 mls/hr Norepinephrine Bitartrate 8, (000 mcg/ Dextrose) 500 mls @ 18.75 mls/hr IV TITR DUSTIN; 5 MCG/MIN PRN Reason: Protocol Last Admin: 07/15/17 22:30 Dose: Not Given Levetiracetam 500 mg/ Dextrose 105 mls @ 420 mls/hr IVPB BID DUSTIN Last Admin: 07/16/17 10:38 Dose: 420 mls/hr Valproate Sodium 500 mg/ (Dextrose) 55 mls @ 55 mls/hr IVPB BID [facility] Last Admin: 07/16/17 10:38 Dose: 55 mls/hr Sodium Bicarbonate 150 meq/ (Dextrose) 1,150 mls @ 50 mls/hr IV Q23H [facility] Last Admin: 07/16/17 09:25 Dose: 50 mls/hr CEFTRIAXONE 1 G/50 ML PREMIX (Ceftriaxone 1 Gm-D5w Bag) 50 mls @ 100 mls/hr IVPB DAILY [facility] Last Admin: 07/16/17 09:28 Dose: 100 mls/hr Methylprednisolone Sodium Succinate (Solu-Medrol -) 60 mg IVPUSH QID [facility] Last Admin: 07/16/17 09:34 Dose: 60 mg Mupirocin (Bactroban Ointment (For Decolonization) -) 1 applic NS BID [facility] Stop: 07/17/17 21:59 Last Admin: 07/16/17 09:26 Dose: 1 applic Pantoprazole Sodium (Protonix Iv) 40 mg IVPUSH DAILY [facility] Last Admin: 07/16/17 09:32 Dose: 40 mg Gen: intubated, unresponsive Heart: RRR Lung: bilateral rhonchi, wheezes Abd: soft, nontender Ext: + edema Laboratory Results - last 24 hr 07/16/17 07/16/17 07/16/17 06:10 06:10 06:10 WBC 13.4 H RBC 4.02 Hgb 12.0 Hct 36.5 MCV 90.9 MCH 29.8 MCHC 32.8 RDW 15.3 Plt Count 105 L MPV 9.9 PT with INR 9.70 L INR 0.86 PTT (Actin FS) 31.3 D Puncture Site ABG pH ABG pCO2 at Pt Temp ABG pO2 at Pt Temp ABG HCO3 ABG O2 Sat (Measured) ABG O2 Content ABG Base Excess Anthony Test Oxygen Flow Rate Vent Rate PEEP Pressure Support Vent Sodium Potassium Chloride Carbon Dioxide Anion Gap BUN Creatinine Creat Clearance w eGFR Random Glucose Calcium Phosphorus Magnesium Total Bilirubin AST ALT Alkaline Phosphatase Total Protein Albumin 07/16/17 07/16/17 06:10 07:30 WBC RBC Hgb Hct MCV MCH MCHC RDW Plt Count MPV PT with INR INR PTT (Actin FS) Puncture Site Arterial line ABG pH 7.11 L* ABG pCO2 at Pt Temp 58.5 H D ABG pO2 at Pt Temp 74.4 ABG HCO3 17.7 L ABG O2 Sat (Measured) 93.0 ABG O2 Content 15.0 ABG Base Excess -11.9 L* Anthony Test Positive Oxygen Flow Rate 40% Vent Rate 16 PEEP 5.0 Pressure Support Vent 400 Sodium 129 L Potassium 5.6 H Chloride 94 L Carbon Dioxide 20 L Anion Gap 15 BUN 87 H Creatinine 6.7 H D Creat Clearance w eGFR 8.20 Random Glucose 135 H Calcium 7.0 L Phosphorus 9.7 H* Magnesium 2.6 H Total Bilirubin 0.3 D AST 85 H ALT 105 H Alkaline Phosphatase 29 L Total Protein 5.1 L Albumin 2.3 L ASSESSMENT AND PLAN: s/p Cardiopulmonary Arrest Shock - Septic vs Cardiogenic r/o Anoxic Encephalopathy Metabolic Acidosis r/o Pulmonary Embolism +Troponins r/o Myocardial Infarction Acute Kidney Injury Acute COPD Exacerbation - s/p hypothermia protocol - continue empiric antibiotics - titrate pressors to maintain MAP >65 - continue empiric medrol as pt with normal plateau pressures and high peak pressures - inhaled bronchodilators - bicarbonate for metabolic acidosis - continue empiric anticoagulation - minimize sedation to assess mental status - enteral feeds - DVT/GI prophylaxis - continue ICU monitoring - poor overall prognosis, continue discussions regarding goals of care for compassionate extubation, now DNR Dr Walker Critical care time spent in reviewing chart, evaluating patient and formulating plan 40 min Problem List - Problems (1) Cardiac arrest Code(s): I46.9 - CARDIAC ARREST, CAUSE UNSPECIFIED (2) Acute respiratory failure Code(s): J96.00 - ACUTE RESPIRATORY FAILURE, UNSP W HYPOXIA OR HYPERCAPNIA
[2017-07-16] MEDS: PROPOFOL 1,000,000 MCG/100 ML VIAL IVPB SCH (16:20)
[2017-07-16] MEDS: NOREPINEPHRINE BITARTRATE 8,000 MCG in DEXTROSE 5%-WATER - 492 ML IV SCH ×2 (16:47→21:08)
[2017-07-16] MEDS: CHLORHEXIDINE GLUCONATE 4% CLEANSER FOR DECOLONIZATION TP SCH (21:08)
[2017-07-16] MEDS ORDERED: fentaNYL CITRATE 250 MCG/5 ML VIAL ONE (22:06)
[2017-07-16] MEDS: FENTANYL INJECTION 500 MCG in DEXTROSE 5%-WATER - 90 ML IVPB SCH (22:33)
[2017-07-17] MEDS ORDERED: fentaNYL CITRATE 250 MCG/5 ML VIAL ONE ×2 (06:48→19:29)
[2017-07-17] MEDS: ALBUTEROL SO4 0.083% IH SOL 2.5 MG/3 ML VIAL.NEB. NEB SCH ×5 (06:50→23:00)
[2017-07-17] MEDS ORDERED: PT OWN MED DRAWER 7, Y5N ONE ×2 (06:58→21:10)
[2017-07-17 08:20] LABS: ARTERIAL BLD GAS O2 SATURATION 90.4 % (90-98.9); ARTERIAL BLOOD GAS BASE EXCESS -9.9 meq/l (-2-2); ARTERIAL BLOOD GAS PCO2 57.4 mmHg (35-45); ARTERIAL BLOOD GAS PO2 69.7 mmHg (70-100)
[2017-07-17 08:37] LABS: ALLENS TEST POSITIVE
[2017-07-17 08:47] LABS: ARTERIAL BLOOD GAS pH 7.15 (7.35-7.45)
--- NOTE | 2017-07-17 09:01 | PN ---
Progress Note (short form) - Note Progress Note: SUBJECTIVE: Patient seen and examined in the ICU. Remains intubated, unresponsive. -Flu positive -worsening acidosis -conts to decompensate -family to come in today regarding palliative extubaiton OBJECTIVE: Vital Signs Temp 98.4 F 07/17/17 06:00 Pulse 82 07/17/17 06:00 Resp 24 07/17/17 06:55 BP 112/66 07/17/17 06:00 Pulse Ox 93 L 07/17/17 00:57 Intake & Output 07/16/17 07/16/17 07/17/17 11:59 23:59 11:59 Intake Total 1433.2 1788 660 Output Total 30 15 5 Balance 1403.2 1773 655 Weight 71.305 kg 76.204 kg Intake: IV 1333.2 1638 660 D5W with sodium bicarb.@ 600 850 350 50cc/hrt Levophed - 8,000 Mcg In 660 460 140 D5w - 492 ml @ 5 MCG/MIN 18.75 mls/hr IV TITR DUSTIN Rx#:[id number] saline lock 73.2 328 170 IVPB 100 150 Output: Urine 30 15 5 Echeverria 30 15 5 Other: Voiding Method Indwelling Catheter Indwelling Catheter Bowel Movement No Yes No # Bowel Movements 1 Weight Measurement Method Built in [facility] Built in [facility] Active Medications Acetaminophen (Tylenol Suppository -) 650 mg [place] Q6H PRN PRN Reason: FEVER OR PAIN Albuterol Sulfate (Ventolin 0.083% Nebulizer Soln -) 1 amp NEB Q4HWA [facility] Last Admin: 07/16/17 11:06 Dose: 1 amp Chlorhexidine Gluconate (Hibiclens For Decolonization -) 1 applic TP HS [facility] Last Admin: 07/15/17 22:31 Dose: 1 applic Heparin Sodium (Porcine) (Heparin -) 5,000 unit IVPUSH PRN PRN PRN Reason: Heparin Propofol (Diprivan -) 1,000,000 mcg in 100 mls @ 2.177 mls/hr IVPB TITR DUSTIN; 5 MCG/KG/MIN PRN Reason: Protocol Last Admin: 07/15/17 18:24 Dose: 14 mcg/kg/min, 6.1 mls/hr Norepinephrine Bitartrate 8, (000 mcg/ Dextrose) 500 mls @ 18.75 mls/hr IV TITR DUSTIN; 5 MCG/MIN PRN Reason: Protocol Last Admin: 07/15/17 22:30 Dose: Not Given Levetiracetam 500 mg/ Dextrose 105 mls @ 420 mls/hr IVPB BID [facility] [place] Last Admin: 07/16/17 10:38 Dose: 420 mls/hr Valproate Sodium 500 mg/ (Dextrose) 55 mls @ 55 mls/hr IVPB BID [facility] Last Admin: 07/16/17 10:38 Dose: 55 mls/hr Sodium Bicarbonate 150 meq/ (Dextrose) 1,150 mls @ 50 mls/hr IV Q23H [facility] [place] Last Admin: 07/16/17 09:25 Dose: 50 mls/hr CEFTRIAXONE 1 G/50 ML PREMIX (Ceftriaxone 1 Gm-D5w Bag) 50 mls @ 100 mls/hr IVPB DAILY [facility] [place] Last Admin: 07/16/17 09:28 Dose: 100 mls/hr Methylprednisolone Sodium Succinate (Solu-Medrol -) 60 mg IVPUSH QID [facility] [place] Last Admin: 07/16/17 09:34 Dose: 60 mg Mupirocin (Bactroban Ointment (For Decolonization) -) 1 applic NS BID [facility] [place] Stop: 07/17/17 21:59 Last Admin: 07/16/17 09:26 Dose: 1 applic Pantoprazole Sodium (Protonix Iv) 40 mg IVPUSH DAILY [facility] Last Admin: 07/16/17 09:32 Dose: 40 mg Gen: intubated, unresponsive Heart: RRR Lung: bilateral rhonchi, wheezes Abd: soft, nontender Ext: + edema ABG Results ABG pH 7.15 (7.35-7.45) L* 07/17/17 07:35 ABG pCO2 at Pt Temp 57.4 mmHg (35-45) H 07/17/17 07:35 ABG pO2 at Pt Temp 69.7 mmHg (70-100) L 07/17/17 07:35 ABG HCO3 19.1 meq/L (22-26) L 07/17/17 07:35 ABG O2 Sat (Measured) 90.4 % (90-98.9) 07/17/17 07:35 ABG O2 Content 15.3 % vol (15-22) 07/17/17 07:35 ABG Base Excess -9.9 meq/l (-2-2) L 07/17/17 07:35 CBCD WBC 13.4 K/mm3 (4.0-10.0) H 07/16/17 06:10 RBC 4.02 M/mm3 (4.00-5.60) 07/16/17 06:10 Hgb 12.0 GM/dL (11.7-16.9) 07/16/17 06:10 Hct 36.5 % (35.4-49) 07/16/17 06:10 MCV 90.9 fl (80-96) 07/16/17 06:10 MCHC 32.8 g/dl (32.0-35.9) 07/16/17 06:10 RDW 15.3 % (11.9-15.9) 07/16/17 06:10 Plt Count 105 K/MM3 (134-434) L 07/16/17 06:10 MPV 9.9 fl (7.5-11.1) 07/16/17 06:10 CMP Sodium 129 mmol/L (136-145) L 07/16/17 06:10 Potassium 5.6 mmol/L (3.5-5.1) H 07/16/17 06:10 Chloride 94 mmol/L (98-107) L 07/16/17 06:10 Carbon Dioxide 20 mmol/L (21-32) L 07/16/17 06:10 Anion Gap 15 (8-16) 07/16/17 06:10 BUN 87 mg/dL (7-18) H 07/16/17 06:10 Creatinine 6.7 mg/dL (0.7-1.3) H D 07/16/17 06:10 Creat Clearance w eGFR 8.20 (>60) 07/16/17 06:10 Random Glucose 135 mg/dL (74-106) H 07/16/17 06:10 Calcium 7.0 mg/dL (8.5-10.1) L 07/16/17 06:10 Total Bilirubin 0.3 mg/dL (0.2-1.0) D 07/16/17 06:10 AST 85 U/L (15-37) H 07/16/17 06:10 ALT 105 U/L (12-78) H 07/16/17 06:10 Alkaline Phosphatase 29 U/L (45-117) L 07/16/17 06:10 Total Protein 5.1 g/dl (6.4-8.2) L 07/16/17 06:10 Albumin 2.3 g/dl (3.4-5.0) L 07/16/17 06:10 CARDIAC ENZYMES Creatine Kinase 509 IU/L (39-308) H 07/13/17 05:50 Troponin I 1.44 ng/ml (0.00-0.05) H* 07/13/17 05:50 ASSESSMENT AND PLAN: s/p Cardiopulmonary Arrest Shock - Septic vs Cardiogenic r/o Anoxic Encephalopathy Metabolic Acidosis r/o Pulmonary Embolism +Troponins r/o Myocardial Infarction Acute Kidney Injury Acute COPD Exacerbation - s/p hypothermia protocol - continue empiric antibiotics, can add tamiflu if in lines with family wishes , will isolate - titrate pressors to maintain MAP >65 - continue empiric medrol as pt with normal plateau pressures and high peak pressures - inhaled bronchodilators - bicarbonate for metabolic acidosis - continue empiric anticoagulation - sedate for comfort, posturing - enteral feeds - DVT/GI prophylaxis - continue ICU monitoring - poor overall prognosis, continue discussions regarding goals of care for compassionate extubation, now DNR Milo White ACNP [id number] 35min CCT
[2017-07-17] MEDS: SODIUM BICARBONATE 8.4% - 150 MEQ in DEXTROSE 5%-WATER - 1,000 ML IV SCH ×2 (10:02→12:18)
[2017-07-17] MEDS: MUPIROCIN 2% TOPICAL OINTMENT FOR DECOLONIZATION NS SCH (10:03)
[2017-07-17] MEDS: CEFTRIAXONE 1 G/50 ML PREMIX 50 ML IVPB SCH (10:03)
[2017-07-17] MEDS: PANTOPRAZOLE SODIUM 40 MG VIAL IVPUSH SCH (10:05)
[2017-07-17] MEDS: methylPREDNISolone NA SUCC 40 MG/1 ML VIAL IVPUSH SCH ×4 (10:10→21:43)
[2017-07-17] MEDS: PROPOFOL 1,000,000 MCG/100 ML VIAL IVPB SCH ×2 (10:10→16:00)
--- NOTE | 2017-07-17 10:33 | PN ---
Progress Note, Physician History of Present Illness: SEDATED--now off - Current Medication List Current Medications: Active Medications Acetaminophen (Tylenol Suppository -) 650 mg [place] Q6H PRN PRN Reason: FEVER OR PAIN Albuterol Sulfate (Ventolin 0.083% Nebulizer Soln -) 1 amp NEB Q4HWA [facility] Last Admin: 07/17/17 06:50 Dose: 1 amp Chlorhexidine Gluconate (Hibiclens For Decolonization -) 1 applic TP HS [facility] Last Admin: 07/16/17 21:08 Dose: 1 applic Heparin Sodium (Porcine) (Heparin -) 5,000 unit IVPUSH PRN PRN PRN Reason: Heparin Propofol (Diprivan -) 1,000,000 mcg in 100 mls @ 2.177 mls/hr IVPB TITR DUSTIN; 5 MCG/KG/MIN PRN Reason: Protocol Last Admin: 07/17/17 10:10 Dose: 20 mcg/kg/min, 8.709 mls/hr Norepinephrine Bitartrate 8, (000 mcg/ Dextrose) 500 mls @ 18.75 mls/hr IV TITR DUSTIN; 5 MCG/MIN PRN Reason: Protocol Last Titration: 07/16/17 22:01 Dose: 6 mcg/min, 22.5 mls/hr Levetiracetam 500 mg/ Dextrose 105 mls @ 420 mls/hr IVPB BID [facility] Last Admin: 07/16/17 21:08 Dose: 420 mls/hr Valproate Sodium 500 mg/ (Dextrose) 55 mls @ 55 mls/hr IVPB BID [facility] Last Admin: 07/16/17 22:33 Dose: 55 mls/hr Sodium Bicarbonate 150 meq/ (Dextrose) 1,150 mls @ 50 mls/hr IV Q23H [facility] Last Admin: 07/17/17 10:02 Dose: Not Given CEFTRIAXONE 1 G/50 ML PREMIX (Ceftriaxone 1 Gm-D5w Bag) 50 mls @ 100 mls/hr IVPB DAILY [facility] Last Admin: 07/17/17 10:03 Dose: 100 mls/hr Fentanyl 500 mcg/ Dextrose 100 mls @ 10 mls/hr IVPB TITR DUSTIN; 50 MCG/HR PRN Reason: Protocol Last Admin: 07/16/17 22:33 Dose: 10 mls/hr Methylprednisolone Sodium Succinate (Solu-Medrol -) 60 mg IVPUSH QID [facility] Last Admin: 07/17/17 10:10 Dose: 60 mg Mupirocin (Bactroban Ointment (For Decolonization) -) 1 applic NS BID [facility] Stop: 07/17/17 21:59 Last Admin: 07/17/17 10:03 Dose: 1 applic Pantoprazole Sodium (Protonix Iv) 40 mg IVPUSH DAILY [facility] Last Admin: 07/17/17 10:05 Dose: 40 mg - Objective Vital Signs: Vital Signs Temperature 98.4 F 07/17/17 06:00 Pulse Rate 80 07/17/17 08:00 Respiratory Rate 24 07/17/17 09:45 Blood Pressure 100/60 07/17/17 08:00 O2 Sat by Pulse Oximetry (%) 95 07/17/17 09:26 Cardiovascular: Yes: S1, S2 Respiratory: Yes: Mechanically Ventilated Neurological: Yes: Unresponsive Labs: CBC, BMP 07/16/17 06:10 07/16/17 06:10 INR, PTT INR 0.86 (0.82-1.09) 07/16/17 06:10 Problem List - Problems (1) Cardiac arrest Assessment/Plan: ICU SUPPORT PRESSORS FOLLOW LABS D/W SISTER--PROGNOSIS POOR --POSSIBLE WEANING ON WEDNESDAY ECHO NL LV Code(s): I46.9 - CARDIAC ARREST, CAUSE UNSPECIFIED (2) Acute respiratory failure Assessment/Plan: ON VENT MONITOR Code(s): J96.00 - ACUTE RESPIRATORY FAILURE, UNSP W HYPOXIA OR HYPERCAPNIA (3) COPD (chronic obstructive pulmonary disease) Assessment/Plan: ABOVE STEROIDS NEBS Code(s): J44.9 - CHRONIC OBSTRUCTIVE PULMONARY DISEASE, UNSPECIFIED (4) HTN (hypertension) Code(s): I10 - ESSENTIAL (PRIMARY) HYPERTENSION (5) Anoxic-ischemic encephalopathy Assessment/Plan: DC SEDATION AND MONITOR Code(s): G93.1 - ANOXIC BRAIN DAMAGE, NOT ELSEWHERE CLASSIFIED; I67.82 - CEREBRAL ISCHEMIA
--- NOTE | 2017-07-17 11:07 | PN ---
Progress Note, Physician History of Present Illness: 72 year old male with a pmhx of htn, psych disorder, and CAD s/p stents at [facility] in the past. Patient was crossing the stress to local diner/deli when had witnessed arrest/collapsed. CPR provided and EMS arrived. As per chart 15 minutes of resuscitation provided by ems and patient was intubated. Hypotension and started on pressors. On sedation for seizure like activity - in field, noted to have myoclonic activity overnight--on propofol and versed and fentanyl. pt unresponsive. on hypothermic protocol. CT HD : mild forntal white matter changes. elevated LFTS, trop/CPK. FU : Off sedation, on vent AC mode ;UNRESPONSIVE ECHO NL LV on keppra 1000 mg bid and depakote 500 mg bid PE: On Vent; off sedation ; unresponsive; pupils small and non reactive to LT; gag, doll's eye , corne reflexes absent . A/P: Anoxic brain injury post CPA ; devastated brain stem ;family want compassionate care ; refuses any procedure even ice-caloric test. Poor px Now DNR ; compassionate extubation Wero Allen MD - Current Medication List Current Medications: Active Medications Acetaminophen (Tylenol Suppository -) 650 mg SD Q6H PRN PRN Reason: FEVER OR PAIN Albuterol Sulfate (Ventolin 0.083% Nebulizer Soln -) 1 amp NEB Q4HWA DUSTIN Last Admin: 07/17/17 06:50 Dose: 1 amp Chlorhexidine Gluconate (Hibiclens For Decolonization -) 1 applic TP HS [facility] Last Admin: 07/16/17 21:08 Dose: 1 applic Heparin Sodium (Porcine) (Heparin -) 5,000 unit IVPUSH PRN PRN PRN Reason: Heparin Propofol (Diprivan -) 1,000,000 mcg in 100 mls @ 2.177 mls/hr IVPB TITR DUSTIN; 5 MCG/KG/MIN PRN Reason: Protocol Last Admin: 07/17/17 10:10 Dose: 20 mcg/kg/min, 8.709 mls/hr Norepinephrine Bitartrate 8, (000 mcg/ Dextrose) 500 mls @ 18.75 mls/hr IV TITR DUSTIN; 5 MCG/MIN PRN Reason: Protocol Last Titration: 07/16/17 22:01 Dose: 6 mcg/min, 22.5 mls/hr Levetiracetam 500 mg/ Dextrose 105 mls @ 420 mls/hr IVPB BID [facility] Last Admin: 07/16/17 21:08 Dose: 420 mls/hr Valproate Sodium 500 mg/ (Dextrose) 55 mls @ 55 mls/hr IVPB BID [facility] Last Admin: 07/16/17 22:33 Dose: 55 mls/hr Sodium Bicarbonate 150 meq/ (Dextrose) 1,150 mls @ 50 mls/hr IV Q23H [facility] Last Admin: 07/17/17 10:02 Dose: Not Given CEFTRIAXONE 1 G/50 ML PREMIX (Ceftriaxone 1 Gm-D5w Bag) 50 mls @ 100 mls/hr IVPB DAILY [facility] Last Admin: 07/17/17 10:03 Dose: 100 mls/hr Fentanyl 500 mcg/ Dextrose 100 mls @ 10 mls/hr IVPB TITR [facility]; 50 MCG/HR PRN Reason: Protocol Last Admin: 07/16/17 22:33 Dose: 10 mls/hr Methylprednisolone Sodium Succinate (Solu-Medrol -) 60 mg IVPUSH QID [facility] Last Admin: 07/17/17 10:10 Dose: 60 mg Mupirocin (Bactroban Ointment (For Decolonization) -) 1 applic NS BID [facility] Stop: 07/17/17 21:59 Last Admin: 07/17/17 10:03 Dose: 1 applic Pantoprazole Sodium (Protonix Iv) 40 mg IVPUSH DAILY [facility] Last Admin: 07/17/17 10:05 Dose: 40 mg - Objective Vital Signs: Vital Signs Temperature 97.7 F 07/17/17 10:00 Pulse Rate 78 07/17/17 10:00 Respiratory Rate 24 07/17/17 10:00 Blood Pressure 107/63 07/17/17 10:00 O2 Sat by Pulse Oximetry (%) 95 07/17/17 09:26 Labs: CBC, BMP 07/16/17 06:10 07/16/17 06:10 INR, PTT INR 0.86 (0.82-1.09) 07/16/17 06:10
[2017-07-17] MEDS: LEVETIRACETAM INJECTION 500 MG in DEXTROSE 5%-WATER - 100 ML IVPB SCH ×2 (12:17→22:44)
[2017-07-17] MEDS: WATER IVPB SCH ×2 (12:18→21:43)
[2017-07-17] MEDS: VALPROATE SODIUM IVPB SCH ×2 (12:18→21:43)
[2017-07-17] MEDS: DEXTROSE 5% IVPB SCH ×2 (12:18→21:43)
[2017-07-17] MEDS: NOREPINEPHRINE BITARTRATE 8,000 MCG in DEXTROSE 5%-WATER - 492 ML IV SCH ×2 (14:00→21:42)
[2017-07-17] MEDS: CHLORHEXIDINE GLUCONATE 4% CLEANSER FOR DECOLONIZATION TP SCH (21:43)
[2017-07-17] MEDS: FENTANYL INJECTION 500 MCG in DEXTROSE 5%-WATER - 90 ML IVPB SCH (21:43)
[2017-07-18] MEDS: ALBUTEROL SO4 0.083% IH SOL 2.5 MG/3 ML VIAL.NEB. NEB SCH ×2 (06:03→11:45)
[2017-07-18] MEDS ORDERED: fentaNYL CITRATE 250 MCG/5 ML VIAL ONE (06:30)
[2017-07-18] MEDS: FENTANYL INJECTION 500 MCG in DEXTROSE 5%-WATER - 90 ML IVPB SCH (06:58)
--- NOTE | 2017-07-18 07:29 | PN ---
Progress Note (short form) - Note Progress Note: PULM/CCM Pt Seen & Examined in the ICU. Pt remains uncon/unresp on the Vent. Comfortable. Moribund. Active Medications Acetaminophen (Tylenol Suppository -) 650 mg GA Q6H PRN PRN Reason: FEVER OR PAIN Chlorhexidine Gluconate (Hibiclens For Decolonization -) 1 applic TP HS [facility] Last Admin: 07/17/17 21:43 Dose: 1 applic Heparin Sodium (Porcine) (Heparin -) 5,000 unit IVPUSH PRN PRN PRN Reason: Heparin Propofol (Diprivan -) 1,000,000 mcg in 100 mls @ 2.177 mls/hr IVPB TITR DUSTIN; 5 MCG/KG/MIN PRN Reason: Protocol Last Admin: 07/17/17 16:00 Dose: 20 mcg/kg/min, 8.709 mls/hr Norepinephrine Bitartrate 8, (000 mcg/ Dextrose) 500 mls @ 18.75 mls/hr IV TITR DUSTIN; 5 MCG/MIN PRN Reason: Protocol Last Admin: 07/17/17 21:42 Dose: Not Given Levetiracetam 500 mg/ Dextrose 105 mls @ 420 mls/hr IVPB BID [facility] Last Admin: 07/17/17 22:44 Dose: 420 mls/hr Valproate Sodium 500 mg/ (Dextrose) 55 mls @ 55 mls/hr IVPB BID [facility] Last Admin: 07/18/17 09:29 Dose: 55 mls/hr Sodium Bicarbonate 150 meq/ (Dextrose) 1,150 mls @ 50 mls/hr IV Q23H [facility] Last Admin: 07/18/17 09:13 Dose: 50 mls/hr Fentanyl 500 mcg/ Dextrose 100 mls @ 10 mls/hr IVPB TITR DUSTIN; 50 MCG/HR PRN Reason: Protocol Last Admin: 07/18/17 06:58 Dose: 10 mls/hr Methylprednisolone Sodium Succinate (Solu-Medrol -) 60 mg IVPUSH QID [facility] Last Admin: 07/18/17 09:37 Dose: 60 mg Pantoprazole Sodium (Protonix Iv) 40 mg IVPUSH DAILY [facility] Last Admin: 07/18/17 09:29 Dose: 40 mg V/S Period Temp Pulse Resp BP Sys/Mock Pulse Ox Last 24 Hr 97.8 F-98.5 F 70-87 22-25 64-114/51-70 97-98 Intake & Output 07/15/17 07/16/17 07/17/17 07/18/17 23:59 23:59 23:59 23:59 Intake Total 2161 3221.2 2490 630 Output Total 110 45 15 Balance 2050 3176.2 2475 630 Weight 70.76 kg 71.305 kg 76.204 kg 78.7 kg Gen: intubated, unresponsive Heart: RRR Lung: bilateral rhonchi, wheezes Abd: soft, nontender Ext: + edema CBC, BMP 07/16/17 06:10 07/16/17 06:10 Microbiology 07/12/17 09:17 Blood - Peripheral Venous Blood Culture - Final NO GROWTH AFTER 5 DAYS INCUBATION 07/13/17 09:00 Sputum - Endotrachea Suction/Ventilator Gram Stain - Final 07/13/17 09:00 Sputum - Endotrachea Suction/Ventilator Sputum Culture - Final Klebsiella Pneumoniae Strep Agalactiae Group B Staphylococcus Aureus 07/12/17 09:17 Blood - Peripheral Venous Blood Culture - Final NO GROWTH AFTER 5 DAYS INCUBATION 07/13/17 12:00 Nasopharyngeal Swab Respiratory Virus (PCR) - INFLUENZA A + 07/13/17 09:00 Rectal Swab VRE Culture - Final NO VREF ISOLATED 07/13/17 09:00 Nares - Left Nares MRSA Screen - Final NO MRSA ISOLATED 07/13/17 09:00 Nares - Right Nares MRSA Screen - Final NO MRSA ISOLATED 07/13/17 10:00 Urine For Antigen Detection Legionella Antigen - Final 07/13/17 10:00 Urine For Antigen Detection Streptococcus pneumoniae Antigen (M - Final 07/12/17 09:42 Urine - Urine Echeverria Urine Culture - Final NO GROWTH OBTAINED ASSESSMENT AND PLAN: s/p Cardiopulmonary Arrest Shock - Septic vs Cardiogenic r/o Anoxic Encephalopathy Metabolic Acidosis r/o Pulmonary Embolism +Troponins r/o Myocardial Infarction Acute Kidney Injury Acute COPD Exacerbation - s/p hypothermia protocol - titrate pressors to maintain MAP >65 - continue empiric medrol as pt with normal plateau pressures and high peak pressures - inhaled bronchodilators - bicarbonate for metabolic acidosis - continue empiric anticoagulation - sedate for comfort, posturing - enteral feeds - poor overall prognosis - Sister arriving from [place] this PM - As soon as sister has had a chance to spend some time w/ the pt the family would like to begin a terminal wean. - DVT/GI prophylaxis DGL, ACNP-BC [facility] ICU PULM/CCM 1959
[2017-07-18] MEDS: SODIUM BICARBONATE 8.4% - 150 MEQ in DEXTROSE 5%-WATER - 1,000 ML IV SCH (09:13)
[2017-07-18] MEDS: PANTOPRAZOLE SODIUM 40 MG VIAL IVPUSH SCH (09:29)
[2017-07-18] MEDS: WATER IVPB SCH (09:29)
[2017-07-18] MEDS: VALPROATE SODIUM IVPB SCH (09:29)
[2017-07-18] MEDS: DEXTROSE 5% IVPB SCH (09:29)
[2017-07-18] MEDS: methylPREDNISolone NA SUCC 40 MG/1 ML VIAL IVPUSH SCH ×3 (09:37→18:44)
[2017-07-18] MEDS: CEFTRIAXONE 1 G/50 ML PREMIX 50 ML IVPB SCH (09:37)
[2017-07-18] MEDS ORDERED: PT OWN MED DRAWER 7, Y5N ONE (10:05)
--- NOTE | 2017-07-18 10:05 | PN ---
Progress Note, Physician History of Present Illness: unresponsive - Current Medication List Current Medications: Active Medications Acetaminophen (Tylenol Suppository -) 650 mg MS Q6H PRN PRN Reason: FEVER OR PAIN Albuterol Sulfate (Ventolin 0.083% Nebulizer Soln -) 1 amp NEB Q4HWA [facility] Last Admin: 07/18/17 06:03 Dose: 1 amp Chlorhexidine Gluconate (Hibiclens For Decolonization -) 1 applic TP HS [facility] Last Admin: 07/17/17 21:43 Dose: 1 applic Heparin Sodium (Porcine) (Heparin -) 5,000 unit IVPUSH PRN PRN PRN Reason: Heparin Propofol (Diprivan -) 1,000,000 mcg in 100 mls @ 2.177 mls/hr IVPB TITR DUSTIN; 5 MCG/KG/MIN PRN Reason: Protocol Last Admin: 07/17/17 16:00 Dose: 20 mcg/kg/min, 8.709 mls/hr Norepinephrine Bitartrate 8, (000 mcg/ Dextrose) 500 mls @ 18.75 mls/hr IV TITR DUSTIN; 5 MCG/MIN PRN Reason: Protocol Last Admin: 07/17/17 21:42 Dose: Not Given Levetiracetam 500 mg/ Dextrose 105 mls @ 420 mls/hr IVPB BID [facility] Last Admin: 07/17/17 22:44 Dose: 420 mls/hr Valproate Sodium 500 mg/ (Dextrose) 55 mls @ 55 mls/hr IVPB BID [facility] Last Admin: 07/18/17 09:29 Dose: 55 mls/hr Sodium Bicarbonate 150 meq/ (Dextrose) 1,150 mls @ 50 mls/hr IV Q23H [facility] Last Admin: 07/18/17 09:13 Dose: 50 mls/hr CEFTRIAXONE 1 G/50 ML PREMIX (Ceftriaxone 1 Gm-D5w Bag) 50 mls @ 100 mls/hr IVPB DAILY [facility] Last Admin: 07/18/17 09:37 Dose: 100 mls/hr Fentanyl 500 mcg/ Dextrose 100 mls @ 10 mls/hr IVPB TITR DUSTIN; 50 MCG/HR PRN Reason: Protocol Last Admin: 07/18/17 06:58 Dose: 10 mls/hr Methylprednisolone Sodium Succinate (Solu-Medrol -) 60 mg IVPUSH QID [facility] Last Admin: 07/18/17 09:37 Dose: 60 mg Pantoprazole Sodium (Protonix Iv) 40 mg IVPUSH DAILY [facility] Last Admin: 07/18/17 09:29 Dose: 40 mg - Objective Vital Signs: Vital Signs Temperature 98.5 F 07/18/17 06:00 Pulse Rate 79 07/18/17 08:00 Respiratory Rate 24 07/18/17 09:15 Blood Pressure 106/63 07/18/17 08:00 O2 Sat by Pulse Oximetry (%) 98 07/17/17 20:31 Cardiovascular: Yes: S1, S2 Respiratory: Yes: Mechanically Ventilated Gastrointestinal: Yes: Normal Bowel Sounds, Soft Labs: CBC, BMP 07/16/17 06:10 07/16/17 06:10 INR, PTT INR 0.86 (0.82-1.09) 07/16/17 06:10 Problem List - Problems (1) Cardiac arrest Assessment/Plan: ICU SUPPORT PRESSORS FOLLOW LABS D/W SISTER--PROGNOSIS POOR --POSSIBLE WEANING TODAY ECHO NL LV Code(s): I46.9 - CARDIAC ARREST, CAUSE UNSPECIFIED (2) Acute respiratory failure Assessment/Plan: ON VENT MONITOR Code(s): J96.00 - ACUTE RESPIRATORY FAILURE, UNSP W HYPOXIA OR HYPERCAPNIA (3) COPD (chronic obstructive pulmonary disease) Assessment/Plan: ABOVE STEROIDS NEBS Code(s): J44.9 - CHRONIC OBSTRUCTIVE PULMONARY DISEASE, UNSPECIFIED (4) HTN (hypertension) Code(s): I10 - ESSENTIAL (PRIMARY) HYPERTENSION (5) Anoxic-ischemic encephalopathy Assessment/Plan: DC SEDATION AND MONITOR Code(s): G93.1 - ANOXIC BRAIN DAMAGE, NOT ELSEWHERE CLASSIFIED; I67.82 - CEREBRAL ISCHEMIA (6) Influenza Assessment/Plan: ISOLATION ID CONSULT Code(s): J11.1 - FLU DUE TO UNIDENTIFIED INFLUENZA VIRUS W OTH RESP MANIFEST
[2017-07-18] MEDS ORDERED: NOREPINEPHRINE BITARTRATE 4 MG/4 ML ML IV ONE (10:08)
[2017-07-18 15:07] VITALS: TEMP 97.9
[2017-07-18] MEDS: LEVETIRACETAM INJECTION 500 MG in DEXTROSE 5%-WATER - 100 ML IVPB SCH (15:55)
[2017-07-18] MEDS: PROPOFOL 1,000,000 MCG/100 ML VIAL IVPB SCH (15:55)
[2017-07-18 18:42] VITALS: BP 97/53; PULSE 99
--- NOTE | 2017-07-18 20:00 | PN ---
Progress Note (short form) - Note Progress Note: ID Discussed informally earlier today with Dr Scales regarding positive Influenza A H3 isolated on culture. Patient sustained cardiopulmonary arrest day of admission. Currently on droplet precautions intubated. I am also informed family has decided on terminal weaning. Therefor will not perform full consultation service. Cam Brunson MD
--- NOTE | 2017-07-18 20:34 | PN ---
Progress Note (short form) - Note Progress Note: Event Note: Family, including pts surrogate of highest order, has gathered at bedside. Consensus had been made for palliative extubation and discontinuation of life sustaining measures. This was discussed at length with family, all of whom were in agreement. Ventilator support and vasopressors were discontinued at 810pm. At 820pm pt was noted to be apneic, asystolic of telemetry, without brainstem reflexes or apical heart sounds. He was pronounced at family was notified. Autopsy was declined. Census and hospital admin was notified. Hospitalist was contacted for signing of certificate. Milo White [facility] [id number]
--- NOTE | 2017-07-18 20:40 | HOSP ---
Subjective - Review of Symptoms Events since last encounter: Hospitalist Encounter Notified by the primary RN, that a patient of Dr. Scales's Arrived to bedside, patient is unresponsive, no spontaneous respirations. No palpable or apical pulses. No corneal reflex. No gag reflex. No voluntary movement of extremities. Skin- pallor, cool to touch with mottling. Patient 20:20 Neurological: Yes: Other (unresponsive) Physical Examination Vital Signs: Vital Signs Temperature 97.9 F 07/18/17 15:06 Pulse Rate 99 H 07/18/17 18:42 Respiratory Rate 24 07/18/17 18:51 Blood Pressure 97/53 07/18/17 18:42 O2 Sat by Pulse Oximetry (%) 97 07/18/17 09:00 Constitutional: Yes: Pallor Eyes: Yes: Other (no corneal reflex, pupils fixed) Cardiovascular: Yes: Other (no palpable, no apical pulses) Respiratory: Yes: Other (no spontaneous respirations) Peripheral Pulses WNL: No Peripheral Pulses: Left Radial: 0, Right Radial: 0, Left Doralis Pedis: 0, Right Dorsalis Pedis: 0, Left Femoral: 0, Right Femoral: 0 Integumentary: Yes: Other (cool, mottled) Neurological: Yes: Unresponsive Labs: CBC, BMP 07/16/17 06:10 07/16/17 06:10
== END 2017-07-18 20:30 | disposition expired | DRG 207 ==
LOC: JER 08:38 → JERBED 10:49 → MERGE 10:49 → JICU 13:13
PROVIDERS: ADMIT Family Medicine; ATTEND Family Medicine
PROC: 5A1955Z Respiratory Ventilation, Greater than 96 Consecutive Hours (ICD-10-PCS; principal; 2017-07-12)
PROC: 0BH17EZ Insertion of Endotracheal Airway into Trachea, Via Natural or Artificial Opening (ICD-10-PCS; 2017-07-12)
PROC: 4A133B1 Monitoring of Arterial Pressure, Peripheral, Percutaneous Approach (ICD-10-PCS; 2017-07-12)
PROC: 4A133J1 Monitoring of Arterial Pulse, Peripheral, Percutaneous Approach (ICD-10-PCS; 2017-07-12)
PROC: 05HN33Z Insertion of Infusion Device into Left Internal Jugular Vein, Percutaneous Approach (ICD-10-PCS; 2017-07-13)
DX: J96.01 Acute respiratory failure with hypoxia (principal); G93.1 Anoxic brain damage, not elsewhere classified; E87.2 Acidosis; N17.9 Acute kidney failure, unspecified; J44.1 Chronic obstructive pulmonary disease with (acute) exacerbation; I46.9 Cardiac arrest, cause unspecified; J96.02 Acute respiratory failure with hypercapnia; I10 Essential (primary) hypertension; J11.1 Influenza due to unidentified influenza virus with other respiratory manifestations; I25.10 Atherosclerotic heart disease of native coronary artery without angina pectoris; Z98.61 Coronary angioplasty status
CPT/HCPCS: 36415; 36600; 70450-TC; 71045-TC; 80048; 80053; 80307; 81003; 81015; 82375; 82550; 82553; 82803; 83050; 83605; 83735; 84100; 84484; 85025; 85027; 85610; 85730; 86850; 86900; 86901; 87040; 87070; 87081; 87086; 87186; 87205; 87633; 87899; 93005; 93010; 93306-TC; 93970-TC; 94002; 94640; 95816; 99285-25; G0480